=== PATIENT | male | born 1955 | race Caucasian/White ===

== ENCOUNTER 2022-09-07 09:14 | Inpatient (IN) | payer MEDICARE ==
[2022-09-07] MEDS ORDERED: NITROGLYCERIN-D5W PMX 50 MG in DEXTROSE/WATER 1 250ML.BAG IV ONE (09:18)
--- NOTE | 2022-09-07 09:31 | ED ---
General Adult HPI - General Stated complaint: difficulty breathing Time Seen by Provider: 09/07/22 09:15 - History of Present Illness Initial comments: Dictation was produced using [employer] dictation software. please excuse any grammatical, word or spelling errors. Chief Complaint: 67-year-old male presents emergency department for dyspnea History of Present Illness: 67-year-old male presents to the emergency department for dyspnea. Patient states that he felt unwell since yesterday. States that he has not returned to his usual state of health since mike Covid several months ago. Patient has any history of cardiac disease. Denies any history of heart failure. 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 Denies any history of we can heart heart failure. Denies any fever. No chest pain. Denies cough. Prehospital providers gave patient a glycerin and place patient on noninvasive ventilation. The ROS documented in this emergency department record has been reviewed and confirmed by me. Those systems with pertinent positive or negative responses have been documented in the HPI. All other systems are other negative and/or noncontributory. - Related Data Home Medications Medication Instructions Recorded Confirmed No Known Home Medications 09/07/22 09/07/22 Allergies Allergy/AdvReac Type Severity Reaction Status Date / Time No Known Allergies Allergy Verified 09/07/22 10:50 Review of Systems ROS Statement: Those systems with pertinent positive or pertinent negative responses have been documented in the HPI. ROS Other: All systems not noted in ROS Statement are negative. General Exam - General Exam Comments Initial Comments: PHYSICAL EXAM: General Impression: Alert and oriented x3, dyspneic HEENT: Normocephalic atraumatic, extra-ocular movements intact, pupils equal and reactive to light bilaterally, mucous membranes moist. Cardiovascular: Heart regular rate and rhythm Chest: Mildly dyspneic, diffuse crackles Abdomen: abdomen soft, non-tender, non-distended, no organomegaly Musculoskeletal: Pulses present and equal in all extremities, no peripheral edema Motor: no focal deficits noted Neurological: CN II-XII grossly intact, no focal motor or sensory deficits noted Skin: Intact with no visualized rashes Psych: Normal affect and mood Course Vital Signs 09/07/22 09/07/22 09/07/22 09:15 09:20 09:30 Pulse Rate 118 H Respiratory 32 H Rate Blood Pressure 163/114 O2 Sat by Pulse 85 L Oximetry Fraction of 100 60 Inspired Oxygen (FIO2) 09/07/22 09/07/22 09/07/22 09:42 09:58 10:24 Pulse Rate 112 H 105 H Respiratory 28 H 24 Rate Blood Pressure 147/97 138/95 O2 Sat by Pulse 99 98 Oximetry Fraction of 50 Inspired Oxygen (FIO2) - Reevaluation(s) Reevaluation #1: 09/07/22 10:43 Troponin level resulted showing level of 12.5. Patient is less dyspneic. He is given Lasix. Case is discussed with on-call cardiology, Dr. Alicea regarding patient's clinical presentation, EKG lab abnormalities and medical history. Stat echo ordered. Medical Decision Making - Medical Decision Making Was pt. sent in by a medical professional or institution (, PA, [facility], urgent care, hospital, or half-way...) When possible be specific @ -No Did you speak to anyone other than the patient for history (EMS, parent, family, police, friend...)? What history was obtained from this source @ -EMS provided history that patient had hypertensive findings and called EMS for shortness of breath Did you review nursing and triage notes (agree or disagree)? Why? @ -I reviewed and agree with nursing and triage notes Were old charts reviewed (outside hosp., previous admission, EMS record, old EK G, old radiological studies, urgent care reports/EKG's, half-way records)? Report findings @ -no old Charts available for review Differential Diagnosis (chest pain, altered mental status, abdominal pain women, abdominal pain men, vaginal bleeding, musculoskeletal, weakness, fever, dyspnea, syncope, headache, dizziness, GI bleed, back pain, seizure, CVA, palpatations, mental health)? @ -Differential Dyspnea: Coronary syndrome, arrhythmia, tamponade, asthma, COPD, pulmonary embolism, pneumonia, pneumothorax, pulmonary effusion, anaphylaxis, diabetic ketoacidosis, flailed chest, pulmonary contusion, diaphragmatic rupture, anemia, n euromuscular, this is not meant to be an all-inclusive list. EKG interpreted by me (3pts min.). @ -Repeat EKG performed at 10:42 AM showsdynamic changes ventricular rate 97,. 152, QRS 105, QTC 424 X-rays interpreted by me (1pt min.). @ -X-rays suspicious for fibrosis versus perihilar infiltrate CT interpreted by me (1pt min.). @ -None done U/S interpreted by me (1pt. min.). @ -None done What testing was considered but not performed or refused? (CT, X-rays, U/S, labs)? Why? @ -None What meds were considered but not given or refused? Why? @ -None Did you discuss the management of the patient with other professionals (professionals i.e. DrSoraida, PA, [facility], lab, RT, psych nurse, social service agency director, business services director, teacher, policy officer, comp field case manager)? Give summary @ -See above. Case also discussed with Dr. Darinel sultana admission Was smoking cessation discussed for >3mins.? @ -No Was critical care preformed (if so, how long)? @ -yes, 73 minutes Were there social determinants of health that impacted care today? How? (Homelessness, low income, unemployed, alcoholism, drug addiction, transportation, low edu. Level, literacy, decrease access to med. care, skilled nursing, rehab)? @ -No Was there de-escalation of care discussed even if they declined (Discuss DNR or withdrawal of care, Hospice)? DNR status @ -No What co-morbidities impacted this encounter? (DM, HTN, Smoking, COPD, CAD, Cancer, CVA, ARF, Chemo, Hep., AIDS, mental health diagnosis, sleep apnea, morbid obesity)? @ -CAD Was patient admitted / discharged? Hospital course, mention meds given and route, prescriptions, significant lab abnormalities, going to OR and other pe rtinent info. @ -67-year-old male presents to the emergency department for chief complaint of shortness of breath he arrived via EMS. Vital signs upon arrival shows blood pressure 163/114. Patient had already received sublingual nitroglycerin prior to arrival. He 5% on CPAP with heart rate of 118. When of care bedside ultrasound shows bryant B lines and upper lung field suggesting pulmonary edema. Laboratory evaluation obtained. CBC is unremarkable. Coag panel is negative. Metabolic panel shows mild acidosis with a bicarb of 17. Lactic acidosis of 5.6, glucose of 386. Troponin level 12.5. Patient had received aspirin by prehospital providers. Undiagnosed new problem with uncertain prognosis? @ -No Drug Therapy requiring intensive monitoring for toxicity (Heparin, Nitro, Insulin, Cardizem)? @ -No Were any procedures done? @ -No Diagnosis/symptom? Acute, or Chronic, or Acute on Chronic? Uncomplicated (without systemic symptoms) or Complicated (systemic symptoms)? @ -1. New-onset cardiomyopathy Side effects of treatment? @ -No Exacerbation, Progression, or Severe Exacerbation? @ -No Poses a threat to life or bodily function? How? (Chest pain, [place], [place], pneumonia, PE, COPD, DKA, ARF, appy, cholecystitis, CVA, Diverticulitis, Homicidal, Suicidal, threat to staff... and all critical care pts) @ -yes - Lab Data Result diagrams: 09/07/22 09:37 09/07/22 09:37 Lab Results 09/07/22 09/07/22 09/07/22 Range/Units 09:37 09:37 09:37 WBC 12.8 H (3.8-10.6) k/uL RBC 4.95 (4.30-5.90) m/uL Hgb 14.3 (13.0-17.5) gm/dL Hct 46.4 (39.0-53.0) % MCV 93.7 (80.0-100.0) fL MCH 28.8 (25.0-35.0) pg MCHC 30.7 L (31.0-37.0) g/dL RDW 14.4 (11.5-15.5) % Plt Count 276 (150-450) k/uL MPV 9.0 Neutrophils % 76 % Lymphocytes % 18 % Monocytes % 5 % Eosinophils % 1 % Basophils % 0 % Neutrophils # 9.7 H (1.3-7.7) k/uL Lymphocytes # 2.3 (1.0-4.8) k/uL Monocytes # 0.6 (0-1.0) k/uL Eosinophils # 0.1 (0-0.7) k/uL Basophils # 0.0 (0-0.2) k/uL Hypochromasia Moderate PT 10.1 (9.0-12.0) sec INR 0.9 (<1.2) APTT 20.9 L (22.0-30.0) sec Sodium 135 L (137-145) mmol/L Potassium 5.1 (3.5-5.1) mmol/L Chloride 105 (98-107) mmol/L Carbon Dioxide 17 L (22-30) mmol/L Anion Gap 13 mmol/L BUN 15 (9-20) mg/dL Creatinine 1.03 (0.66-1.25) mg/dL Est GFR (CKD-EPI)AfAm 86 (>60 ml/min/1.73 sqM) Est GFR (CKD-EPI)NonAf 74 (>60 ml/min/1.73 sqM) Glucose 386 H (74-99) mg/dL Plasma Lactic Acid Pieter (0.7-2.0) mmol/L Calcium 8.6 (8.4-10.2) mg/dL Magnesium 1.6 (1.6-2.3) mg/dL Total Bilirubin 1.6 H (0.2-1.3) mg/dL AST 124 H (17-59) U/L ALT 55 H (4-49) U/L Alkaline Phosphatase 63 (38-126) U/L Troponin I (0.000-0.034) ng/mL Total Protein 7.0 (6.3-8.2) g/dL Albumin 3.8 (3.5-5.0) g/dL 09/07/22 09/07/22 Range/Units 09:37 09:37 WBC (3.8-10.6) k/uL RBC (4.30-5.90) m/uL Hgb (13.0-17.5) gm/dL Hct (39.0-53.0) % MCV (80.0-100.0) fL MCH (25.0-35.0) pg MCHC (31.0-37.0) g/dL RDW (11.5-15.5) % Plt Count (150-450) k/uL MPV Neutrophils % % Lymphocytes % % Monocytes % % Eosinophils % % Basophils % % Neutrophils # (1.3-7.7) k/uL Lymphocytes # (1.0-4.8) k/uL Monocytes # (0-1.0) k/uL Eosinophils # (0-0.7) k/uL Basophils # (0-0.2) k/uL Hypochromasia PT (9.0-12.0) sec INR (<1.2) APTT (22.0-30.0) sec Sodium (137-145) mmol/L Potassium (3.5-5.1) mmol/L Chloride (98-107) mmol/L Carbon Dioxide (22-30) mmol/L Anion Gap mmol/L BUN (9-20) mg/dL Creatinine (0.66-1.25) mg/dL Est GFR (CKD-EPI)AfAm (>60 ml/min/1.73 sqM) Est GFR (CKD-EPI)NonAf (>60 ml/min/1.73 sqM) Glucose (74-99) mg/dL Plasma Lactic Acid Pieter 5.6 H* (0.7-2.0) mmol/L Calcium (8.4-10.2) mg/dL Magnesium (1.6-2.3) mg/dL Total Bilirubin (0.2-1.3) mg/dL AST (17-59) U/L ALT (4-49) U/L Alkaline Phosphatase (38-126) U/L Troponin I 12.500 H* (0.000-0.034) ng/mL Total Protein (6.3-8.2) g/dL Albumin (3.5-5.0) g/dL Disposition Clinical Impression: Cardiomyopathy Disposition: ADMITTED IP TO THIS [facility] Condition: Critical Referrals: None,Stated [REFERRING] - 1-2 days Decision Time: 11:22
[2022-09-07 09:48] LABS: Basophils % (A) 0 %; Eosinophils # (A) 0.1 k/uL (0-0.7); Eosinophils % (A) 1 %; HCT 46.4 % (39.0-53.0); HGB 14.3 gm/dL (13.0-17.5); Hypochromasia Moderate; Lymphocytes # (A) 2.3 k/uL (1.0-4.8); Lymphocytes % (A) 18 %; MCH 28.8 pg (25.0-35.0); MCHC 30.7 g/dL (31.0-37.0); MCV 93.7 fL (80.0-100.0); Monocytes # (A) 0.6 k/uL (0-1.0); Monocytes % (A) 5 %; Neutrophils # (A) 9.7 k/uL (1.3-7.7); Neutrophils % (A) 76 %; Platelet Count 276 k/uL (150-450); RBC 4.95 m/uL (4.30-5.90); RDW 14.4 % (11.5-15.5); WBC 12.8 k/uL (3.8-10.6)
--- NOTE | 2022-09-07 09:50 | XR ---
EXAMINATION TYPE: XR chest 1V portable DATE OF EXAM: 09/07/2022 COMPARISON: NONE HISTORY: Shortness of breath TECHNIQUE: Single frontal view of the chest is obtained. FINDINGS: Bilateral perihilar interstitial findings. Coarsened interstitium. No pleural effusion or pneumothorax. Limited inspiration with elevated right hemidiaphragm. Heart size normal. Hypertrophic changes in the spine. IMPRESSION: 1. Findings suspicious for pulmonary fibrosis with superimposed left perihilar infiltrate and interst itial pneumonitis.
[2022-09-07 10:02] LABS: AST 124 U/L (17-59); African American GFR (CKD) 86 (>60 ml/min/1.73 sqM); Albumin 3.8 g/dL (3.5-5.0); Alkaline Phosphatase 63 U/L (38-126); Anion Gap 13 mmol/L; Blood Urea Nitrogen 15 mg/dL (9-20); Calcium 8.6 mg/dL (8.4-10.2); Carbon Dioxide 17 mmol/L (22-30); Chloride 105 mmol/L (98-107); Glucose 386 mg/dL (74-99); Magnesium 1.6 mg/dL (1.6-2.3); Non-African American GFR(CKD) 74 (>60 ml/min/1.73 sqM); Potassium 5.1 mmol/L (3.5-5.1); Sodium 135 mmol/L (137-145); Total Bilirubin 1.6 mg/dL (0.2-1.3)
[2022-09-07 10:03] LABS: INR 0.9 (<1.2); Prothrombin Time 10.1 sec (9.0-12.0)
[2022-09-07] MEDS ORDERED: FUROSEMIDE 10 MG/ML 4 ML VIAL IV STA ×3 (10:16→17:33)
[2022-09-07 10:33] LABS: ALT 55 U/L (4-49)
[2022-09-07 10:38] LABS: Partial Thromboplastin Time 20.9 sec (22.0-30.0)
[2022-09-07] MEDS ORDERED: ASPIRIN 81 MG PO STA (10:42)
[2022-09-07] MEDS ORDERED: HEPARIN SODIUM 1,000 UN/ML (10ML VL) IV ONE (11:05)
[2022-09-07] MEDS ORDERED: NALOXONE 0.4 MG/ML 1 ML VIAL IV PRN (11:14)
[2022-09-07] MEDS: HEPARIN SOD,PORK IN 0.45% NACL 25,000 UNIT in 0.45% NACL 1 250ML.BAG IV SCH (11:25)
--- NOTE | 2022-09-07 11:27 | P.CRDCN ---
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 Patient has a past medical history of coronary artery disease with stenting of the left main 21 years ago in the setting of an CO performed at [facility], history of diabetes mellitus type 2 and was previously on metformin and glipizide which he states he stopped taking because these medications were making him feel sick. Patient presented to the hospital due to shortness of breath with cough and sputum production on and off since he had Covid last year. He also states he's had episodes of sweating with this. He denies having any chest pain. Symptoms started yesterday and became significantly worse quickly. He denies having been told history of heart failure. He has been borderline hypertensive in the past. He follows with a PCP at [facility] normally lives in the [facility] but has a cottage in [place]. Patient is currently on BiPAP, heart rate 100, blood pressure 138/95. Initial blood pressure 163/114 Patient is seen today in the emergency center waiting for a bed on the cardiac stepdown unit. Patient is status post 1 dose of IV Lasix, aspirin and started on nitroglycerin drip. EKG Chest x-ray: Suspicious for pulmonary fibrosis with superimposed left perihilar infiltrate and interstitial pneumonitis WBC 12.8, hemoglobin 14.3, platelet count 276. INR 0.9. Sodium 135, potassium 5.1, chloride 105, CO2 17, glucose 386. Lactic acid 5.6. Magnesium 1.6. Total bilirubin 1.6, AST 124, ALT 55, alkaline phosphatase 63. Troponin 12.5. Home cardiac medications: none Review Of Systems: At the time of my evaluation: Constitutional: No fever, no chills. Reports weakness, reports fatigue. Reported sweats EENT: No headache. No dizziness. Lungs: Reports shortness of breath, reports cough, reports sputum production. No wheezing. Cardiovascular: No chest pain, no lower extremity edema. No palpitations. No p aroxysmal nocturnal dyspnea. No orthopnea. No lightheadedness or dizziness. No syncopal episodes. Abdominal: No abdominal pain. No nausea, vomiting. No diarrhea. No constipation. No bloody or tarry stools. Genitourinary: No dysuria.. No urinary retention. Musculoskeletal: No myalgias. No muscle weakness, no frequent falls. No back pain. No neck pain. Integumentary: No wounds. No rash. No unusual bruising. Neurologic: No aphasia. No facial droop. No change in mentation. No head injury. No headache. Physical examination: Gen: This is a 67-year-old male. He is resting on ER stretcher on BiPAP, moderate dyspnea VS: reviewed HEENT: Head is atraumatic, normocephalic. Pupils equal, round. Sclerae is anicteric. NECK: Supple. No JVD. . LUNGS: Scattered rhonchi. No intercostal retractions. HEART: Regular rate and rhythm. No murmur. ABDOMEN: Soft No tenderness. EXTREMITIES: No pedal edema. No calf tenderness. NEUROLOGICAL: Patient is awake, alert and oriented x3. Assessment: Elevated troponin, non-ST elevated myocardial infarction Hypertensive emergency Acute hypoxic and hypercapnic respiratory failure Possible left perihilar infiltrate pneumonitis Possible acute systolic heart failure Post Covid lung changes Diabetes mellitus type 2 Cardiomyopathy of unclear etiology, possible ischemic Plan: Obtain BNP, repeat troponins, A1c, lipid panel, TSH Obtain 2-D echocardiogram and Doppler study report Continue heparin drip Continue nitroglycerin drip IV Lasix 40 mg every 12 hours, monitor I&O, daily weights electrolytes and renal function Start patient on Coreg 3.125 mg twice daily, valsartan 160 mg daily, atorvastatin 40 mg daily. Further recommendations to follow based upon clinical course Thank you kindly for this consultation. Nurse practitioner note has been reviewed, I agree with documented findings and plan of care. Patient was seen and examined. Medications and Allergies Home Medications Medication Instructions Recorded Confirmed Type No Known Home Medications 09/07/22 09/07/22 History Allergies Allergy/AdvReac Type Severity Reaction Status Date / Time No Known Allergies Allergy Verified 09/07/22 10:50 Physical Exam Vitals: Vital Signs Pulse Resp BP Pulse Ox FiO2 09/07/22 10:24 50 09/07/22 09:58 105 H 24 138/95 98 09/07/22 09:42 112 H 28 H 147/97 99 09/07/22 09:30 60 09/07/22 09:20 100 09/07/22 09:15 118 H 32 H 163/114 85 L Intake and Output 09/06/22 09/07/22 09/07/22 22:59 06:59 14:59 Intake Total 1.40 Balance 1.40 Intake: Intake, IV Titration 1.40 Amount Nitroglycerin-D5w Pmx 50 1.40 mg In Dextrose/Water 1 250ml.bag @ 5 MCG/MIN 1.5 mls/hr IV .Q24H ONE Rx#: [id number] Other: Weight 81.647 kg Results 09/11/22 04:50 09/11/22 04:50 Cardiac Enzymes 09/07/22 09/07/22 Range/Units 09:37 09:37 AST 124 H (17-59) U/L Troponin I 12.500 H* (0.000-0.034) ng/mL Coagulation 09/07/22 Range/Units 09:37 PT 10.1 (9.0-12.0) sec APTT 20.9 L (22.0-30.0) sec CBC 09/07/22 Range/Units 09:37 WBC 12.8 H (3.8-10.6) k/uL RBC 4.95 (4.30-5.90) m/uL Hgb 14.3 (13.0-17.5) gm/dL Hct 46.4 (39.0-53.0) % Plt Count 276 (150-450) k/uL Comprehensive Metabolic Panel 09/07/22 Range/Units 09:37 Sodium 135 L (137-145) mmol/L Potassium 5.1 (3.5-5.1) mmol/L Chloride 105 (98-107) mmol/L Carbon Dioxide 17 L (22-30) mmol/L BUN 15 (9-20) mg/dL Creatinine 1.03 (0.66-1.25) mg/dL Glucose 386 H (74-99) mg/dL Calcium 8.6 (8.4-10.2) mg/dL AST 124 H (17-59) U/L ALT 55 H (4-49) U/L Alkaline Phosphatase 63 (38-126) U/L Total Protein 7.0 (6.3-8.2) g/dL Albumin 3.8 (3.5-5.0) g/dL Current Medications Generic Name Dose Route Start Last Admin Trade Name Freq PRN Reason Stop Dose Admin Heparin Sodium (Porcine) 0 unit 09/07/22 11:05 Heparin Sodium 1,000 Un/Ml (10ml Vl) IV PER PROTOCOL PRN Low PTT Protocol Nitroglycerin/Dextrose 50 mg/ 250 mls @ 1.5 mls/hr 09/07/22 09:18 09/07/22 09:58 IV Solution IV 09/08/22 09:17 0 mcg/min .Q24H ONE 0 mls/hr Titration Protocol 5 MCG/MIN Heparin Sodium/Sodium Chloride 250 mls @ 9.798 mls/hr 09/07/22 11:15 25,000 unit/ Sodium Chloride IV .Q24H SANDRA Protocol 12 UNITS/KG/HR Intake and Output 09/06/22 09/07/22 09/07/22 22:59 06:59 14:59 Intake Total 1.40 Balance 1.40 Intake: Intake, IV Titration 1.40 Amount Nitroglycerin-D5w Pmx 50 1.40 mg In Dextrose/Water 1 250ml.bag @ 5 MCG/MIN 1.5 mls/hr IV .Q24H ONE Rx#: [id number] Other: Weight 81.647 kg Patient Weight 09/08/22 06:59 Weight 81.647 kg 09/07/22 09:37 09/07/22 09:37
[2022-09-07] MEDS: SODIUM CHLORIDE 0.9% 1,000 ML IV SCH (11:31)
[2022-09-07] MEDS ORDERED: VALSARTAN 160 MG TAB PO SCH (12:00)
[2022-09-07] MEDS: carvediloL 3.125 MG TAB PO SCH ×2 (12:15→17:46)
--- NOTE | 2022-09-07 12:24 | CA ---
Transthoracic Echo Report Name: Dylan Roberts Age: 67 Gender: M : 1955 Exam Date: 09/07/2022 10:57 Exam Location: [facility] Ht (in): 72 Wt (lb): 180 Ordering Physician: Jasiel Velez DO Attending/Referring Phys: Rosie Weathers;[id number] Emt I/85 Arabella Granados [facility] Procedure CPT: Indications: Heart failure Cardiac Hx: Technical Quality: Fair Contrast 1: Lumason Total Dose (mL): 5 Contrast 2: Total Dose (mL): MEASUREMENTS (Male / Female) Normal Values 2D ECHO LV Diastolic Diameter PLAX 4.7 cm 4.2 - 5.9 / 3.9 - 5.3 cm LV Systolic Diameter PLAX 4.2 cm IVS Diastolic Thickness 1.1 cm 0.6 - 1.0 / 0.6 - 0.9 cm LVPW Diastolic Thickness 0.9 cm 0.6 - 1.0 / 0.6 - 0.9 cm LV Relative Wall Thickness 0.4 LV Diastolic Volume MOD BP 96.0 cm??? 67 - 155 / 56 - 104 cm??? LV Systolic Volume MOD BP 74.8 cm??? 22 - 58 / 19 - 49 cm??? LV Ejection Fraction MOD BP 22.0 % >= 55 % LV Cardiac Index MOD BP 993.6 cm???/min???m??? LV Diastolic Volume MOD 4C 95.9 cm??? LV Systolic Volume MOD 4C 69.6 cm??? LV Ejection Fraction MOD 4C 27.4 % LV Cardiac Index MOD 4C 1234.2 cm???/min???m??? LV Diastolic Length 4C 8.0 cm LV Systolic Length 4C 7.2 cm LV Diastolic Volume MOD 2C 94.2 cm??? LV Systolic Volume MOD 2C 72.1 cm??? LV Ejection Fraction MOD 2C 23.5 % LV Cardiac Index MOD 2C 1039.9 cm???/min???m??? LV Diastolic Length 2C 7.8 cm LV Systolic Length 2C 8.1 cm DOPPLER Mitral E Point Velocity 58.9 cm/s Mitral A Point Velocity 51.3 cm/s Mitral E to A Ratio 1.1 MV Deceleration Time 124.8 ms LV E' Lateral Velocity 6.3 cm/s Mitral E to LV E' Lateral Ratio 9.3 LV E' Septal Velocity 6.0 cm/s Mitral E to LV E' Septal Ratio 9.8 TR Peak Velocity 300.3 cm/s TR Peak Gradient 36.1 mmHg Right Atrial Pressure 15.0 mmHg Pulmonary Artery Systolic Pressu 51.1 mmHg Right Ventricular Systolic Press 51.1 mmHg FINDINGS Left Ventricle Mildly increased left ventricular wall thickness. Left ventricular ejection fraction is estimated at 20-25%. Moderately increased left ventricular systolic volume. Severely reduced global left ventricular systolic function. Severely decreased left ventricular ejection fraction. Left ventricular ejection fraction is estimated at 20-25%. Right Ventricle Normal right ventricular size. Moderate pulmonary hypertension. Right Atrium Left Atrium Mitral Valve Structurally normal mitral valve. Mild mitral regurgitation. Aortic Valve Tricuspid Valve Structurally normal tricuspid valve. Mild tricuspid regurgitation. Pulmonic Valve Pericardium No pericardial effusion. Aorta CONCLUSIONS Left ventricular ejection fraction 2024% with global hypokinesis RVSP 51 Mild mitral regurgitation Mild tricuspid regurgitation Echolucency at apex on contrast images, cannot exclude apical thrombus vs swirling contrast. Consider repeat imaging if clinically indicated. Previewed by: Dr. Pierre Landa DO (Electronically Signed) Final Date: 07 September 2022 12:23
--- NOTE | 2022-09-07 13:31 | P.CNPUL ---
History of Present Illness Consult date: 09/07/22 Reason for consult: dyspnea History of present illness: A 67-year-old male patient, came into the emergency department because of worsening shortness of breath. The patient lives in [facility] and he has a primary care physician out of [facility]. The patient was visiting here in [place] and became progressively more short of breath. No significant cough or sputum production. No hemoptysis. No pleurisy. No angina. No palpitations. He is known to have CAD and he has undergone stenting many years back and she is not seeing a management accounts manager on a regular basis. He is known to have hypertension. He is an ex-smoker. In the emergency, the patient was found to be hypertensive and he was diagnosed having an acute hypertensive emergency with secondary pulmonary edema. EKG showed some nonspecific ST segment changes in the lateral leads and anteroseptal Q waves. The cardiac rhythm was sinus. The chest x-ray was consistent with pulmonary edema. The patient's initial troponin came back at 12.5. His lactic acid level was at 5.6. ProBNP level was 2930. There was done was 12.8 with hemoglobin 14.3 and a plat elet count of 276. The patient was started on IV heparin. The patient was started on nitroglycerin drip. Blood pressures under better control. Subsequently, the patient was also placed on a BiPAP at a pressure of 12/5 cm of water with an FiO2 of 50%. The current pulse ox is 97%. Most recent BP is 140/97 and a nitroglycerin is being titrated accordingly. He was given also Lasix. He is producing adequate amount of urine output. The chest x-ray showed coarse interstitial changes bilaterally. Most likely interstitial edema/CHF. Review of Systems Constitutional: Reports fatigue, Reports weakness Eyes: denies as per HPI, denies blurred vision, denies bulging eye, denies decreased vision, denies diplopia, denies discharge, denies dry eye, denies irritation, denies itching, denies pain, denies photophobia, denies loss of peripheral vision, denies loss of vision, denies tunnel vision/blind spots Ears: deny: decreased hearing, ear discharge, earache, tinnitus Ears, nose, mouth and throat: Reports as per HPI Breasts: absent: as per HPI, gynecomastia Cardiovascular: Reports decreased exercise tolerance, Reports dyspnea on exertion Respiratory: Reports cough Gastrointestinal: Reports as per HPI Genitourinary: Reports as per HPI Musculoskeletal: Reports as per HPI Musculoskeletal: absent: ankle pain, ankle stiffness, ankle swelling Integumentary: Reports as per HPI Neurological: Reports as per HPI Psychiatric: Reports as per HPI Endocrine: Reports as per HPI Hematologic/Lymphatic: Reports as per HPI Past Medical History Past Medical History: Coronary Artery Disease (CAD), Hypertension Additional Past Medical History / Comment(s): Previous COVID x2, last infection was in 2021 Past Surgical History: Heart Catheterization With Stent Additional Past Surgical History / Comment(s): back surgery for back pain Smoking Status: Former smoker Medications and Allergies Home Medications Medication Instructions Recorded Confirmed Type No Known Home Medications 09/07/22 09/07/22 History Allergies Allergy/AdvReac Type Severity Reaction Status Date / Time No Known Allergies Allergy Verified 09/07/22 10:50 Physical Exam Vitals: Vital Signs Pulse Resp BP Pulse Ox FiO2 09/07/22 11:22 98 28 H 159/109 97 09/07/22 10:24 50 09/07/22 09:58 105 H 24 138/95 98 09/07/22 09:42 112 H 28 H 147/97 99 09/07/22 09:30 60 09/07/22 09:20 100 09/07/22 09:15 118 H 32 H 163/114 85 L Intake and Output 09/06/22 09/07/22 09/07/22 22:59 06:59 14:59 Intake Total 1.40 Balance 1.40 Intake: Intake, IV Titration 1.40 Amount Nitroglycerin-D5w Pmx 50 1.40 mg In Dextrose/Water 1 250ml.bag @ 5 MCG/MIN 1.5 mls/hr IV .Q24H ONE Rx#: [id number] Other: Weight 81.647 kg Patient is calm and comfortable on BiPAP at a pressure of 12/5 with an FiO2 of 50%. Head exam was generally normal. There was no scleral icterus or corneal arcus. Mucous membranes were moist. Neck was supple and without jugular venous distension, thyromegaly, or carotid bruits. Carotids were easily palpable bilaterally. There was no adenopathy. Lungs sounds are diminished bilaterally especially in the lung bases. The patient is also some limited crackles bilaterally. Heart sounds are distant, positive S1 and S2, slightly tachycardic. No significant murmurs appreciated. Abdominal exam revealed normal bowel sounds. The abdomen was soft, non-tender, and without masses, organomegaly, or appreciable enlargement of the abdominal aorta. Examination of the extremities revealed easily palpable radial, femoral and pedal pulses. There was no cyanosis, clubbing or edema. Examination of the skin revealed no evidence of significant rashes, suspicious appearing nevi or other concerning lesions. Neurologically, the patient is awake and alert and the patient does not have any focal neurological deficit. Cranial nerves are essentially intact. Results - Laboratory Findings CBC and BMP: 09/07/22 09:37 09/07/22 09:37 PT/INR, D-dimer PT 10.1 sec (9.0-12.0) 09/07/22 09:37 INR 0.9 (<1.2) 09/07/22 09:37 Abnormal lab findings: Abnormal Labs 09/07/22 09/07/22 09/07/22 09:37 09:37 09:37 WBC 12.8 H MCHC 30.7 L Neutrophils # 9.7 H APTT 20.9 L Sodium 135 L Carbon Dioxide 17 L Glucose 386 H Plasma Lactic Acid Pieter Total Bilirubin 1.6 H AST 124 H ALT 55 H Troponin I 09/07/22 09/07/22 09:37 09:37 WBC MCHC Neutrophils # APTT Sodium Carbon Dioxide Glucose Plasma Lactic Acid Pieter 5.6 H* Total Bilirubin AST ALT Troponin I 12.500 H* - Diagnostic Findings Chest x-ray: image reviewed Assessment and Plan Plan: Acute hypertensive emergency, currently on a nitroglycerin drip for blood pressure control Acute decompensated heart failure with pulmonary edema/interstitial pulmonary edema. Rule out underlying systolic heart failure. Decompensated effective could be his poor blood pressure control. ProBNP level is quite elevated Acute non-ST elevation myocardial infarction Acute hypoxic respiratory failure and the patient is current on a BiPAP at a pressure of 12/5 with an FiO2 of 50% Acute shortness of breath secondary to above Known history of coronary artery disease with previous coronary stenting many years back Acute lactic acidosis Plan Keep the patient on a BiPAP for now the same settings Start the patient on Lasix 40 mg IV every 12 hours Continue nitroglycerin drip for blood pressure control Continue IV heparin Obtain an echocardiogram Cardiology consultation We'll make further adjustment in his blood pressure medication based on the echo findings We'll admit the patient to the intensive care unit and FOLLOW.
--- NOTE | 2022-09-07 15:48 | XR ---
EXAMINATION TYPE: XR chest 1V DATE OF EXAM: 09/07/2022 HISTORY: Shortness of breath. COMPARISON: 09/07/2022 TECHNIQUE: Single view of the chest is submitted. FINDINGS: Demonstrated are scattered senescent parenchymal change. There is progression of perihilar and upper lobe pneumonia. Acute pulmonary edema is also within the differential. There may be an underlying component of pulmonary fibrosis. The heart is stable. Hilar and mediastinal structures are within normal limits. Degenerative changes are seen of the dorsal spine. IMPRESSION: 1. There is progression of perihilar and upper lobe pneumonia. Acute pulmonary edema is also within the differential. There may be an underlying component of pulmonary fibrosis.
[2022-09-07] MEDS ORDERED: SODIUM BICARB 8.4% 50 ML SYR (1 MEQ/ML) IV STA (15:49)
--- NOTE | 2022-09-07 16:11 | ED ---
Medical Decision Making - Lab Data Result diagrams: 09/07/22 09:37 09/07/22 09:37 Lab Results 09/07/22 09/07/22 09/07/22 Range/Units 09:37 09:37 09:37 WBC 12.8 H (3.8-10.6) k/uL RBC 4.95 (4.30-5.90) m/uL Hgb 14.3 (13.0-17.5) gm/dL Hct 46.4 (39.0-53.0) % MCV 93.7 (80.0-100.0) fL MCH 28.8 (25.0-35.0) pg MCHC 30.7 L (31.0-37.0) g/dL RDW 14.4 (11.5-15.5) % Plt Count 276 (150-450) k/uL MPV 9.0 Neutrophils % 76 % Lymphocytes % 18 % Monocytes % 5 % Eosinophils % 1 % Basophils % 0 % Neutrophils # 9.7 H (1.3-7.7) k/uL Lymphocytes # 2.3 (1.0-4.8) k/uL Monocytes # 0.6 (0-1.0) k/uL Eosinophils # 0.1 (0-0.7) k/uL Basophils # 0.0 (0-0.2) k/uL Hypochromasia Moderate PT 10.1 (9.0-12.0) sec INR 0.9 (<1.2) APTT 20.9 L (22.0-30.0) sec Sodium 135 L (137-145) mmol/L Potassium 5.1 (3.5-5.1) mmol/L Chloride 105 (98-107) mmol/L Carbon Dioxide 17 L (22-30) mmol/L Anion Gap 13 mmol/L BUN 15 (9-20) mg/dL Creatinine 1.03 (0.66-1.25) mg/dL Est GFR (CKD-EPI)AfAm 86 (>60 ml/min/1.73 sqM) Est GFR (CKD-EPI)NonAf 74 (>60 ml/min/1.73 sqM) Glucose 386 H (74-99) mg/dL Lactic Ac Sepsis Rflx Plasma Lactic Acid Pieter (0.7-2.0) mmol/L Calcium 8.6 (8.4-10.2) mg/dL Magnesium 1.6 (1.6-2.3) mg/dL Total Bilirubin 1.6 H (0.2-1.3) mg/dL AST 124 H (17-59) U/L ALT 55 H (4-49) U/L Alkaline Phosphatase 63 (38-126) U/L Troponin I (0.000-0.034) ng/mL NT-Pro-B Natriuret Pep pg/mL Total Protein 7.0 (6.3-8.2) g/dL Albumin 3.8 (3.5-5.0) g/dL TSH (0.465-4.680) mIU/L 09/07/22 09/07/22 09/07/22 Range/Units 09:37 09:37 09:37 WBC (3.8-10.6) k/uL RBC (4.30-5.90) m/uL Hgb (13.0-17.5) gm/dL Hct (39.0-53.0) % MCV (80.0-100.0) fL MCH (25.0-35.0) pg MCHC (31.0-37.0) g/dL RDW (11.5-15.5) % Plt Count (150-450) k/uL MPV Neutrophils % % Lymphocytes % % Monocytes % % Eosinophils % % Basophils % % Neutrophils # (1.3-7.7) k/uL Lymphocytes # (1.0-4.8) k/uL Monocytes # (0-1.0) k/uL Eosinophils # (0-0.7) k/uL Basophils # (0-0.2) k/uL Hypochromasia PT (9.0-12.0) sec INR (<1.2) APTT (22.0-30.0) sec Sodium (137-145) mmol/L Potassium (3.5-5.1) mmol/L Chloride (98-107) mmol/L Carbon Dioxide (22-30) mmol/L Anion Gap mmol/L BUN (9-20) mg/dL Creatinine (0.66-1.25) mg/dL Est GFR (CKD-EPI)AfAm (>60 ml/min/1.73 sqM) Est GFR (CKD-EPI)NonAf (>60 ml/min/1.73 sqM) Glucose (74-99) mg/dL Lactic Ac Sepsis Rflx Plasma Lactic Acid Pieter 5.6 H* (0.7-2.0) mmol/L Calcium (8.4-10.2) mg/dL Magnesium (1.6-2.3) mg/dL Total Bilirubin (0.2-1.3) mg/dL AST (17-59) U/L ALT (4-49) U/L Alkaline Phosphatase (38-126) U/L Troponin I 12.500 H* (0.000-0.034) ng/mL NT-Pro-B Natriuret Pep 2930 pg/mL Total Protein (6.3-8.2) g/dL Albumin (3.5-5.0) g/dL TSH (0.465-4.680) mIU/L 09/07/22 09/07/22 Range/Units 09:37 10:32 WBC (3.8-10.6) k/uL RBC (4.30-5.90) m/uL Hgb (13.0-17.5) gm/dL Hct (39.0-53.0) % MCV (80.0-100.0) fL MCH (25.0-35.0) pg MCHC (31.0-37.0) g/dL RDW (11.5-15.5) % Plt Count (150-450) k/uL MPV Neutrophils % % Lymphocytes % % Monocytes % % Eosinophils % % Basophils % % Neutrophils # (1.3-7.7) k/uL Lymphocytes # (1.0-4.8) k/uL Monocytes # (0-1.0) k/uL Eosinophils # (0-0.7) k/uL Basophils # (0-0.2) k/uL Hypochromasia PT (9.0-12.0) sec INR (<1.2) APTT (22.0-30.0) sec Sodium (137-145) mmol/L Potassium (3.5-5.1) mmol/L Chloride (98-107) mmol/L Carbon Dioxide (22-30) mmol/L Anion Gap mmol/L BUN (9-20) mg/dL Creatinine (0.66-1.25) mg/dL Est GFR (CKD-EPI)AfAm (>60 ml/min/1.73 sqM) Est GFR (CKD-EPI)NonAf (>60 ml/min/1.73 sqM) Glucose (74-99) mg/dL Lactic Ac Sepsis Rflx Y Plasma Lactic Acid Pieter (0.7-2.0) mmol/L Calcium (8.4-10.2) mg/dL Magnesium (1.6-2.3) mg/dL Total Bilirubin (0.2-1.3) mg/dL AST (17-59) U/L ALT (4-49) U/L Alkaline Phosphatase (38-126) U/L Troponin I (0.000-0.034) ng/mL NT-Pro-B Natriuret Pep pg/mL Total Protein (6.3-8.2) g/dL Albumin (3.5-5.0) g/dL TSH 0.893 (0.465-4.680) mIU/L Disposition Clinical Impression: Cardiomyopathy Disposition: ADMITTED IP TO THIS HOSP Condition: Critical Procedures - Intubation Sedative: Propofol Mg Given: 50 Paralytic: Rocuronium Mg Given: 70 Laryngoscope: fiber optic video scope Size: 3 Assist Device Used: fiber optic device ET Tube Size: 8 Tube Secured Depth (cm): 24 Tube Secured Location: lips Tube Placement Confirmation: visualized tube passing through cords, equal breath sounds bilaterally Patient Tolerated Procedure: well Intubation Complications: none
[2022-09-07] MEDS ORDERED: ROCURONIUM 10 MG/ML (5 ML VIAL) IV ONE (16:14)
--- NOTE | 2022-09-07 16:31 | P.HPIM ---
History of Present Illness H&P Date: 09/07/22 Chief Complaint: dyspnea Patient is a 67-year-old male with a history of coronary artery disease status post stenting many years ago, diabetes mellitus type 2 currently not on any medications, and osteoarthritis who presented to the ER via EMS for complaints of increasing shortness of breath. On arrival to the ER he underwent an extensive evaluation. His pulse was 118, respirations 32, blood pressure 163/114, and O2 sat was 85% on CPAP. Laboratory analysis was remarkable for white blood cell count of 12.8, sodium 135, carbon dioxide 13, glucose 186, lactic acid 5.6, total bilirubin 1.6, AST 124, ALT 55, troponin 12.5, and BNP 2930. Chest x-ray showed findings suspicious for pulmonary fibrosis with superimposed left perihilar infiltrate and interstitial pneumonitis Patient seen and examined at bedside. He has a Bipap in place. He states that he had sudden onset shortness of breath yesterday which has gotten progressively worse. He deneis any chest pain, nuasea, diaphoresis. He reports a cough productive of yellow sputum. He denies any recent fever. He had an [place] about 20 years ago, but does not follow with a tobacco grader. He last saw he PCP around the first of the year and reports that his A1C was 7.2 He reports that he last urinated about 1 and 1/2 hours ago. Vital signs reviewed General: nontoxic, no distress, appears at stated age Derm: warm, dry Eyes: EOMI, no lid lag, anicteric sclera, pupils equal round reactive to light ENT: Nose and ears atraumatic, no thrush, no pharyngeal erythema Cardiovascular: S1S2 reg, no murmur, positive posterior tibial pulse bilateral, no edema, capillary refill less than 2 seconds Lungs: clear to auscultation bilateral, no rhonchi, no rales, no wheeze, no accessory muscle use Abdominal: soft, nontender to palpation, no guarding, no appreciable organomegaly, normal bowel sounds Ext: no gross muscle atrophy, muscle strength 5 out of 5 in all 4 extremities, no contractures Neuro: CN II-XII grossly intact, light touch intact all 4 extremities, finger to nose within normal limits, Psych: Alert, oriented, appropriate affect Assessment: Non-STEMI Acute hypoxic respiratory failure Hypertensive urgency Cardiogenic pulmonary edema Cardiomyopathy, suspect ischemic Hx [place] and CAD with PCI -Cardiology note reviewed and case discussed with Louann nurse practitioner. Urgent echocardiogram reveals an ejection fraction of 20-25% with severely reduced global left ventricular systolic dysfunction, and troponin is increasing. Per Louann there is no immediate plans for ischemic evaluation but will consider in the future, pending clinical course. Patient was started on Coreg 3.125 mg twice daily by cardiology in addition to valsartan 160 mg on atorvastatin 40 mg. -Pulmonary note reviewed: Continue with Lasix 40 mg every 12 hours and BiPAP settings. - Lasix 40 mg IVP additionally now. - strict I and O, daily weights - currently NPO - continue with nitro gtt and heparin gtt Lactic acidosis -Suspect secondary to increased work of breathing -Is improved on repeat. Would not continue with IV fluids. Diabetes mellitus type 2 with hyperglycemia - A1C 11 - Start sliding scale insulin - Follow blood sugars Imaging: Chest x-ray is reviewed by myself reveals increased pulmonary vascular markings bilaterally Data Review: As per HPI The patient is admitted with an anticipated greater than 2 midnight stay for evaluation of NSTEMI. Surrogate decision-maker: Significant otherSpencer CODE STATUS: Full, discussed at length DVT prophylaxis: Heparin gtt Anticipated discharge date: Pending Clinical Course Anticipated discharge place: Pending Clinical Course This dictation was prepared using yeppt voice recognition software. Though every attempt is made to correct errors during dictation some may still exist. Past Medical History Past Medical History: Coronary Artery Disease (CAD), Hypertension, Myocardial Infarction ([place]) Additional Past Medical History / Comment(s): Previous COVID x2, last infection was in 2021 Past Surgical History: Heart Catheterization With Stent Additional Past Surgical History / Comment(s): back surgery for back pain Smoking Status: Former smoker Medications and Allergies Home Medications Medication Instructions Recorded Confirmed Type No Known Home Medications 09/07/22 09/07/22 History Allergies Allergy/AdvReac Type Severity Reaction Status Date / Time No Known Allergies Allergy Verified 09/07/22 10:50 Physical Exam Osteopathic Statement: *. No significant issues noted on an osteopathic structural exam other than those noted in the History and Physical/Consult. Vitals: Vital Signs Temp Pulse Resp BP Pulse Ox FiO2 09/07/22 12:23 97.0 F L 97 26 H 140/97 97 09/07/22 11:22 98 28 H 159/109 97 09/07/22 10:24 50 06/22/23 09:58 105 H 24 138/95 98 09/07/22 09:42 112 H 28 H 147/97 99 09/07/22 09:30 60 09/07/22 09:20 100 09/07/22 09:15 118 H 32 H 163/114 85 L Intake and Output 09/06/22 09/07/22 09/07/22 22:59 06:59 14:59 Intake Total 1.40 Balance 1.40 Intake: Intake, IV Titration 1.40 Amount Nitroglycerin-D5w Pmx 50 1.40 mg In Dextrose/Water 1 250ml.bag @ 5 MCG/MIN 1.5 mls/hr IV .Q24H ONE Rx#: [id number] Other: Weight 81.647 kg Results CBC & Chem 7: 09/07/22 16:44 09/07/22 09:37 Labs: Abnormal Lab Results - Last 24 Hours (Table) 09/07/22 09/07/22 09/07/22 Range/Units 09:37 09:37 09:37 WBC 12.8 H (3.8-10.6) k/uL MCHC 30.7 L (31.0-37.0) g/dL Neutrophils # 9.7 H (1.3-7.7) k/uL APTT 20.9 L (22.0-30.0) sec Sodium 135 L (137-145) mmol/L Carbon Dioxide 17 L (22-30) mmol/L Glucose 386 H (74-99) mg/dL Plasma Lactic Acid Pieter (0.7-2.0) mmol/L Total Bilirubin 1.6 H (0.2-1.3) mg/dL AST 124 H (17-59) U/L ALT 55 H (4-49) U/L Troponin I (0.000-0.034) ng/mL 09/07/22 09/07/22 09/07/22 Range/Units 09:37 09:37 12:33 WBC (3.8-10.6) k/uL MCHC (31.0-37.0) g/dL Neutrophils # (1.3-7.7) k/uL APTT (22.0-30.0) sec Sodium (137-145) mmol/L Carbon Dioxide (22-30) mmol/L Glucose (74-99) mg/dL Plasma Lactic Acid Pieter 5.6 H* (0.7-2.0) mmol/L Total Bilirubin (0.2-1.3) mg/dL AST (17-59) U/L ALT (4-49) U/L Troponin I 12.500 H* 16.200 H* (0.000-0.034) ng/mL 09/07/22 Range/Units 12:45 WBC (3.8-10.6) k/uL MCHC (31.0-37.0) g/dL Neutrophils # (1.3-7.7) k/uL APTT (22.0-30.0) sec Sodium (137-145) mmol/L Carbon Dioxide (22-30) mmol/L Glucose (74-99) mg/dL Plasma Lactic Acid Pieter 2.2 H* (0.7-2.0) mmol/L Total Bilirubin (0.2-1.3) mg/dL AST (17-59) U/L ALT (4-49) U/L Troponin I (0.000-0.034) ng/mL
[2022-09-07] MEDS ORDERED: IPRATROPIUM-ALBUTEROL 3 ML NEB INHALATION PRN (16:33)
[2022-09-07] MEDS ORDERED: ACETAMINOPHEN TAB 325 MG TAB OG-TUBE PRN (16:33)
[2022-09-07] MEDS ORDERED: PROPOFOL 10 MG/ML 20 ML VIAL IV ONE (17:05)
[2022-09-07 17:26] LABS: Basophils % (A) 0 %; Eosinophils # (A) 0.1 k/uL (0-0.7); Eosinophils % (A) 1 %; HCT 46.9 % (39.0-53.0); HGB 15.1 gm/dL (13.0-17.5); Lymphocytes % (A) 9 %; MCH 29.3 pg (25.0-35.0); MCHC 32.1 g/dL (31.0-37.0); MCV 91.1 fL (80.0-100.0); Mean Platelet Volume 9.4; Monocytes # (A) 0.6 k/uL (0-1.0); Monocytes % (A) 5 %; Neutrophils # (A) 9.6 k/uL (1.3-7.7); Neutrophils % (A) 85 %; Platelet Count 231 k/uL (150-450); RBC 5.14 m/uL (4.30-5.90); RDW 14.6 % (11.5-15.5); WBC 11.4 k/uL (3.8-10.6)
[2022-09-07 17:41] LABS: Glucose,Whole Blood 338 mg/dL (70-110)
[2022-09-07 17:44] LABS: ABG Base Excess -2.4 mmol/L; ABG HCO3 24 mmol/L (21-25); ABG Oxygen Saturation 97.7 % (94-97); ABG PCO2 46 mmHg (35-45); ABG PH 7.32 (7.35-7.45); ABG PO2 104 mmHg (83-108); ABG TCO2 25 mmol/L (19-24); Allen Test Performed? Yes
[2022-09-07] MEDS ORDERED: DEXTROSE 50% SYRINGE 50 ML IVP PRN ×2 (17:48)
[2022-09-07 18:06] LABS: African American GFR (CKD) >90 (>60 ml/min/1.73 sqM); Anion Gap 15 mmol/L; Blood Urea Nitrogen 17 mg/dL (9-20); Calcium 8.7 mg/dL (8.4-10.2); Carbon Dioxide 21 mmol/L (22-30); Chloride 103 mmol/L (98-107); Glucose 360 mg/dL (74-99); Non-African American GFR(CKD) 85 (>60 ml/min/1.73 sqM); Sodium 139 mmol/L (137-145)
--- NOTE | 2022-09-07 18:11 | XR ---
EXAMINATION: XR chest 1V portable 09/07/2022 5:16 PM CLINICAL INDICATION: PHH; Tube placement TECHNIQUE: AP supine portable COMPARISON: AP upright portable 09/07/2022 at 3:43 PM FINDINGS: Patient has been intubated, and the ET tube tip is trachea, approximately 3 cm cephalad to the jonathon . NG tube is in place, with its ports expected position GE junction, and the NG tube may be better plac ed and advanced 7 cm distally. There is a severe bilateral airspace filling process involving upper, mid, and lower lung zones bilat erally throughout the lungs, increased in density and volume compared the prior study 45 minutes prev iously. IMPRESSION: 1. Post intubation CXR with severe bilateral airspace filling process. 2. NG tube comments as above * Limitation of the study: Supine radiography cannot exclude pneumoperitoneum. There is a deep sulcu s sign on the left, a nonspecific finding which can correlate with pneumothorax on supine radiography . Recommend follow-up radiograph in the upright position, lateral decubitus position, or shoot throug h lateral.
--- NOTE | 2022-09-07 18:41 | XR ---
EXAMINATION: XR chest 1V confirm line [facility] DATE AND TIME: 09/07/2022 5:23 PM CLINICAL INDICATION: PHH; Central Line Placement TECHNIQUE: Departmental protocol COMPARISON: 09/07/2022 4:18 PM - AP portable supine radiograph FINDINGS: ET tube tip is superimposed over the mid trachea. NG tube is in place, with its port over the expected position of the GE junction; if the NG tube is n ot been advanced since the prior radiograph then would suggest advancing the NG tube 7 cm distally si lhouette of the chest port and its tip in the stomach. New since the prior study. The placement of a left IJ central line catheter, which has its tip superi mposed over the distal SVC. There is a severe bilateral airspace filling process involving upper, mid, and lower lung zones bilat erally throughout the lungs, unchanged from the prior study. IMPRESSION: 1. Post right IJV central line placement. 2. NG tube comments as above. 3. Unchanged overall lung inflation, with redemonstrated severe bilateral airspace filling process. 4. Left deep sulcus sign: * Limitation of the study: This supine radiograph cannot exclude pneumoperitoneum. There is a deep s ulcus sign on the left, a nonspecific finding which can correlate with pneumothorax on supine radiogr aphy. Recommend follow-up radiograph in the upright position, lateral decubitus position, or shoot th rough lateral.
[2022-09-07] MEDS ORDERED: HYDROmorphone 0.5 MG/0.5 ML SYRINGE IVP PRN (18:57)
[2022-09-07] MEDS: NOREPINEPHRINE 4 MG in SODIUM CHLORIDE 0.9% 250 ML IV SCH (19:30)
[2022-09-07] MEDS ORDERED: Magnesium Replacement Protocol 1 EACH MISC MISCELLANE PRN (19:53)
[2022-09-07] MEDS: FUROSEMIDE 100 MG in SODIUM CHLORIDE 0.9% 90 ML IV SCH (20:13)
--- NOTE | 2022-09-07 20:13 | P.PN ---
Progress Note - Text Initially discussed with ER physician Discussed with nurse practitioner Discussed with internal medicine Patient evaluated and examined Impression Acute on chronic congestive heart failure with severe systolic dysfunction, Hypertensive upon admission Left ventricular ejection fraction severely reduced Pulmonary edema Abnormal and rising troponins consistent with non-Q-wave myocardial infarction Failed BiPAP therapy with IV nitroglycerin, IV Lasix and carvedilol Patient became extremely tired fatigue, unable to breathe Intubated and taken to the ICU Low blood pressure tino- intubation, treated with IV norepinephrine Discussed with the nurses Goals for IV norepinephrine use: MAP of 65 mmHg and a systolic blood pressure of >90 mmHg Gradually taper off norepinephrine drip to with these parameters Start IV Lasix drip Hold valsartan, hold carvedilol Continue IV heparin Continue atorvastatin and aspirin Patient has a past history of acute myocardial infarction many years back. Diabetes type 2 He took himself off most of his medications and was not on any cardiac or diabetes medication when he first came in Has not seen a manager search engine in many years We will attempt to obtain any relevant records from his primary care physician regarding his cardiac assessments in the last few years Current Condition: critical
[2022-09-07] MEDS: MAGNESIUM SULFATE-D5W PMX 1 GM in DEXTROSE/WATER 1 100ML.BAG IVPB SCH ×2 (20:24→21:33)
[2022-09-07 20:31] LABS: Glucose,Whole Blood 365 mg/dL (70-110)
[2022-09-07] MEDS: INSULIN ASPART (NovoLOG) 100 UNIT/ML VIAL SQ SCH (20:34)
[2022-09-07] MEDS: HEPARIN SODIUM 1,000 UN/ML (10ML VL) IV PRN (20:38)
[2022-09-07] MEDS ORDERED: FUROSEMIDE 10 MG/ML 4 ML VIAL IV SCH (21:00)
[2022-09-07] MEDS: IPRATROPIUM-ALBUTEROL 3 ML NEB INHALATION SCH ×2 (21:06→23:53)
[2022-09-07 21:20] LABS: Chol/HDL Ratio 5.08 Ratio; LDL Cholesterol,Calculated 148.2 mg/dL (0.0-131.0)
[2022-09-07] MEDS: fentaNYL (PF) 50 MCG/ML 2 ML AMP IVP PRN (21:20)
[2022-09-07] MEDS: CHLORHEXIDINE GLUCONATE 15 ML CUP MUCOUS MEM SCH (21:21)
[2022-09-07] MEDS: FAMOTIDINE 20 MG TAB PO SCH ×2 (21:21→21:28)
[2022-09-07] MEDS: FAMOTIDINE 20 MG/2 ML VIAL IV SCH (21:47)
--- NOTE | 2022-09-07 22:42 | P.PCN ---
Date of Procedure: 09/07/22 Preoperative Diagnosis: Acute hypoxic respiratory failure, pulmonary edema Postoperative Diagnosis: Same Procedure(s) Performed: Central line insertion Anesthesia: local Surgeon: Linnea Tena Estimated Blood Loss (ml): 0 Pathology: none sent Condition: critical Disposition: ICU Operative Findings: Indication: Hemodynamic monitoring/Intravenous access. A time-out was completed verifying correct patient, procedure, site, positioning, and implant(s) or special equipment if applicable. The patient was placed in a dependent position appropriate for central line placement based on the vein to be cannulated. The patient's left neck was prepped and draped in sterile fashion. 1% Lidocaine was used to anesthetize the surrounding skin area. A triple lumen 9F Cordis catheter was introduced into the left internal jugular vein using Seldinger technique. The catheter was threaded smoothly over the guide wire and appropriate blood return was obtained. Each lumen of the catheter was evacuated of air and flushed with sterile saline. The catheter was then sutured in place to the skin and a sterile dressing applied. Perfusion to the extremity distal to the point of catheter insertion was checked and found to be adequate. The patient tolerated the procedure well and there were no complications.
[2022-09-08] LABS: Glucose,Whole Blood 334 mg/dL (70-110)
[2022-09-08] MEDS: INSULIN ASPART (NovoLOG) 100 UNIT/ML VIAL SQ SCH ×5 (00:23→23:53)
[2022-09-08] MEDS: fentaNYL (PF) 50 MCG/ML 2 ML AMP IVP PRN (00:32)
[2022-09-08] MEDS: FUROSEMIDE 100 MG in SODIUM CHLORIDE 0.9% 90 ML IV SCH ×2 (03:21→18:05)
[2022-09-08 04:14] LABS: Basophils # (A) 0.1 k/uL (0-0.2); Basophils % (A) 0 %; Eosinophils # (A) 0.1 k/uL (0-0.7); Eosinophils % (A) 1 %; HCT 37.4 % (39.0-53.0); HGB 12.4 gm/dL (13.0-17.5); Lymphocytes # (A) 2.5 k/uL (1.0-4.8); Lymphocytes % (A) 19 %; MCH 29.7 pg (25.0-35.0); MCHC 33.2 g/dL (31.0-37.0); MCV 89.5 fL (80.0-100.0); Mean Platelet Volume 9.2; Monocytes # (A) 0.8 k/uL (0-1.0); Monocytes % (A) 6 %; Neutrophils # (A) 9.5 k/uL (1.3-7.7); Neutrophils % (A) 73 %; Platelet Count 260 k/uL (150-450); RBC 4.17 m/uL (4.30-5.90); RDW 14.8 % (11.5-15.5)
[2022-09-08] MEDS: IPRATROPIUM-ALBUTEROL 3 ML NEB INHALATION SCH ×6 (04:19→23:49)
[2022-09-08] MEDS: NOREPINEPHRINE 4 MG in SODIUM CHLORIDE 0.9% 250 ML IV SCH ×3 (05:26→15:55)
[2022-09-08 05:33] LABS: ALT 35 U/L (4-49); AST 92 U/L (17-59); African American GFR (CKD) 58 (>60 ml/min/1.73 sqM); Albumin 3.2 g/dL (3.5-5.0); Alkaline Phosphatase 63 U/L (38-126); Anion Gap 9 mmol/L; Blood Urea Nitrogen 23 mg/dL (9-20); Calcium 8.2 mg/dL (8.4-10.2); Carbon Dioxide 22 mmol/L (22-30); Chloride 104 mmol/L (98-107); Glucose 340 mg/dL (74-99); Magnesium 2.4 mg/dL (1.6-2.3); Non-African American GFR(CKD) 50 (>60 ml/min/1.73 sqM); Phosphorus 3.1 mg/dL (2.5-4.5); Potassium 3.8 mmol/L (3.5-5.1); Sodium 135 mmol/L (137-145); Total Protein 6.1 g/dL (6.3-8.2)
[2022-09-08] MEDS ORDERED: Potassium Replacement Protocol 1 EACH MISC MISCELLANE PRN (05:45)
[2022-09-08] MEDS ORDERED: INSULIN ASPART (NovoLOG) 100 UNIT/ML VIAL SQ ONE (05:47)
[2022-09-08 05:48] LABS: ABG Base Excess -0.7 mmol/L; ABG HCO3 23 mmol/L (21-25); ABG PCO2 29 mmHg (35-45); ABG PO2 124 mmHg (83-108); ABG TCO2 23 mmol/L (19-24); Allen Test Performed? Yes
[2022-09-08] MEDS: POTASSIUM CHLORIDE 10 MEQ in WATER FOR INJECTION 1 100ML.BAG IVPB SCH ×2 (06:10→07:12)
--- NOTE | 2022-09-08 08:29 | XR ---
EXAMINATION TYPE: XR chest 1V portable DATE OF EXAM: 09/08/2022 COMPARISON: 09/07/2022 HISTORY: Tube placement TECHNIQUE: Single frontal view of the chest is obtained. FINDINGS: ET tube, NG tube and central line appear in good position and stable. There is persistent left lower lobe consolidation and small effusion. Improvement in the bilateral perihilar infiltrates. No sizable pneumothorax. Arthropathy of the shoulders. IMPRESSION: 1. Improving bilateral perihilar infiltrates with persistent left lower lobe consolidation and small effusion.
[2022-09-08] MEDS: FAMOTIDINE 20 MG/2 ML VIAL IV SCH ×2 (08:32→20:36)
[2022-09-08] MEDS: ATORVASTATIN 40 MG TAB PO SCH (08:32)
[2022-09-08] MEDS: INSULIN DETEMIR (LEVEMIR) 100 UNIT/ML SYR SQ SCH (08:32)
[2022-09-08] MEDS: CHLORHEXIDINE GLUCONATE 15 ML CUP MUCOUS MEM SCH ×2 (08:32→20:36)
[2022-09-08] MEDS: ASPIRIN 81 MG PO SCH (08:33)
[2022-09-08] MEDS: HEPARIN SOD,PORK IN 0.45% NACL 25,000 UNIT in 0.45% NACL 1 250ML.BAG IV SCH (08:44)
[2022-09-08] MEDS: SODIUM CHLORIDE 0.9% 1,000 ML IV SCH (09:19)
--- NOTE | 2022-09-08 09:25 | P.PN ---
Subjective Progress Note Date: 09/08/22 Patient is a 67-year-old male with a history of coronary artery disease status post stenting many years ago, diabetes mellitus type 2 currently not on any medications, and osteoarthritis who presented to the ER via EMS for complaints of increasing shortness of breath. On arrival to the ER he underwent an extensive evaluation. His pulse was 118, respirations 32, blood pressure 163/114, and O2 sat was 85% on CPAP. Laboratory analysis was remarkable for white blood cell count of 12.8, sodium 135, carbon dioxide 13, glucose 186, lactic acid 5.6, total bilirubin 1.6, AST 124, ALT 55, troponin 12.5, and BNP 2930. Chest x-ray showed findings suspicious for pulmonary fibrosis with loera perimposed left perihilar infiltrate and interstitial pneumonitis. Patient seen and examined at bedside. He is sedated on vent. Recent urine output has been between 20-70 ml/hr. Vital signs reviewed General: nontoxic, no distress, appears at stated age Cardiovascular: S1S2 reg, no murmur, positive posterior tibial pulse bilateral, Lungs: CTA bilateral, no rhonchi, no rales , no accessory muscle use Abdominal: soft, nontender to palpation, no guarding, no appreciable organomegaly Ext: no gross muscle atrophy, no edema b/l lower extremities, no contractures Neuro: CN II-XI grossly intact, no focal neuro deficits Psych: Alert, oriented, appropriate affect Assessment/Plan: Non-STEMI Acute hypoxic respiratory failure Cardiogenic pulmonary edema Cardiomyopathy, suspect ischemic Cardiogenic shock Hx SD and CAD with PCI -Per nursing plan is for impella today - Await further cardio notes: then have decreased lasix to 5 mg/hr. - Case discussed with Dr. Youngblood and remain on vent - strict I and O, daily weights - currently NPO - continue with nitro gtt and heparin gtt - ASA, Lipitor - no BB or ACEI due to hypotension Acute kidney injury -This is secondary to decreased perfusion from low blood pressures. -Doubt that Lasix has any clinical significance of the increasing creatinine, and is likely due to hypoperfusion from decreased cardiac ejection fraction as well as low blood pressures overnight -Lasix drip decreased by cardiology -Continue to monitor renal function -Continue to monitor urine output - Off ACEI/ARB - maintain MAP > 65 DM 2 - Add levemir 10 units daily, conitnue with SSI q 6 hours - follow BS - A1C 11.2 Hypertensive urgency, resolved Lactic acidosis, resolved Imaging: CXR- reviewed and left basilar infiltrate, increased intersitital infiltrate Data Review: Vitals reviewed and pulse 73, respirations 20; blood pressure 93/63, O2 sat 97% on 40% spent Laboratory data remarkable for white blood cell count 13, hemoglobin 12.4, sodium 135, BUN 23, creatinine 1.43, glucose 340, A1c 11.2, troponin 27. Cholesterol profile reviewed total cholesterol 242, LDL 148, VLDL 46 DVT prophylaxis: Heparin gtt Anticipated discharge date: Pending Clinical Course Anticipated discharge place: Pending Clinical Course This dictation was prepared using [employer] voice recognition software. Though every attempt is made to correct errors during dictation some may still exist. Objective - Vital Signs Vital signs: Vital Signs Temp 98.7 F 09/08/22 08:51 Pulse 76 09/08/22 09:09 Resp 27 H 09/08/22 09:00 BP 93/63 09/08/22 09:00 Pulse Ox 97 09/08/22 09:00 FiO2 40 09/08/22 09:00 Intake & Output 09/07/22 09/08/22 09/08/22 18:59 06:59 18:59 Intake Total 115.117 911.736 451.342 Output Total 755 55 Balance 115.117 156.736 396.342 Weight 81.647 kg 84.4 kg Intake: IV 280 0.9 NS @ 10 ml/hr 80 Magnesium Sulfate-D5w Pmx 200 1 gm In Dextrose/Water 1 100ml.bag @ 100 mls/hr IVPB Q1H [facility] Rx#: [id number] Intake, IV Titration 115.117 631.736 401.342 Amount Furosemide 100 mg In 71.333 51.5 Sodium Chloride 0.9% 90 ml @ 5 MG/HR 5 mls/hr IV .Q20H [facility] Rx#:[id number] Heparin Sod,Pork in 0.45% 9.798 78.057 152.604 NaCl 25,000 unit In 0.45 % NaCl 1 250ml.bag @ 12 UNITS/KG/HR 9.798 mls/hr IV .Q24H [facility] Rx#: [id number] Nitroglycerin-D5w Pmx 50 1.40 mg In Dextrose/Water 1 250ml.bag @ 5 MCG/MIN 1.5 mls/hr IV .Q24H ONE Rx#: [id number] Norepinephrine 4 mg In 260.162 57.238 Sodium Chloride 0.9% 250 ml @ 0.03 MCG/KG/MIN 9. 332 mls/hr IV .Q24H [facility] Rx#:[id number] Potassium Chloride 10 meq 100 In Water For Injection 1 100ml.bag @ 100 mls/hr IVPB Q1H [facility] Rx#: [id number] Sodium Chloride 0.9% 1, 40 000 ml @ 20 mls/hr IV . Q24H [facility] Rx#:[id number] propofoL 1,000 mg In 103.919 222.184 Empty Bag 1 bag @ 15 MCG/ KG/MIN 7.348 mls/hr IV . [id number] [facility] Rx#:[id number] Oral 0 Other 50 Output: Urine 755 55 Other: Voiding Method Indwelling Catheter Indwelling Catheter Indwelling Catheter ABP, PAP, CO, CI - Last Documented Arterial Blood Pressure 93/57 - Labs CBC & Chem 7: 09/08/22 04:00 09/08/22 04:00 Labs: Abnormal Lab Results - Last 24 Hours (Table) 09/07/22 09/07/22 09/07/22 Range/Units 09:37 09:37 09:37 WBC 12.8 H (3.8-10.6) k/uL RBC (4.30-5.90) m/uL Hgb (13.0-17.5) gm/dL Hct (39.0-53.0) % MCHC 30.7 L (31.0-37.0) g/dL Neutrophils # 9.7 H (1.3-7.7) k/uL APTT 20.9 L (22.0-30.0) sec ABG pH (7.35-7.45) ABG pCO2 (35-45) mmHg ABG pO2 (83-108) mmHg ABG Total CO2 (19-24) mmol/L ABG O2 Saturation (94-97) % Sodium 135 L (137-145) mmol/L Carbon Dioxide 17 L (22-30) mmol/L BUN (9-20) mg/dL Creatinine (0.66-1.25) mg/dL Glucose 386 H (74-99) mg/dL POC Glucose (mg/dL) (70-110) mg/dL Hemoglobin A1c (<=6.0) % Plasma Lactic Acid Pieter (0.7-2.0) mmol/L Calcium (8.4-10.2) mg/dL Magnesium (1.6-2.3) mg/dL Total Bilirubin 1.6 H (0.2-1.3) mg/dL AST 124 H (17-59) U/L ALT 55 H (4-49) U/L Troponin I (0.000-0.034) ng/mL Total Protein (6.3-8.2) g/dL Albumin (3.5-5.0) g/dL Triglycerides (0.00-149.00) mg/dL Cholesterol (0.00-200.00) mg/dL LDL Cholesterol, Calc (0.0-131.0) mg/dL VLDL Cholesterol, Calc (5.00-40.00) mg/dL 09/07/22 09/07/22 09/07/22 Range/Units 09:37 09:37 09:37 WBC (3.8-10.6) k/uL RBC (4.30-5.90) m/uL Hgb (13.0-17.5) gm/dL Hct (39.0-53.0) % MCHC (31.0-37.0) g/dL Neutrophils # (1.3-7.7) k/uL APTT (22.0-30.0) sec ABG pH (7.35-7.45) ABG pCO2 (35-45) mmHg ABG pO2 (83-108) mmHg ABG Total CO2 (19-24) mmol/L ABG O2 Saturation (94-97) % Sodium (137-145) mmol/L Carbon Dioxide (22-30) mmol/L BUN (9-20) mg/dL Creatinine (0.66-1.25) mg/dL Glucose (74-99) mg/dL POC Glucose (mg/dL) (70-110) mg/dL Hemoglobin A1c (<=6.0) % Plasma Lactic Acid Pieter 5.6 H* (0.7-2.0) mmol/L Calcium (8.4-10.2) mg/dL Magnesium (1.6-2.3) mg/dL Total Bilirubin (0.2-1.3) mg/dL AST (17-59) U/L ALT (4-49) U/L Troponin I 12.500 H* (0.000-0.034) ng/mL Total Protein (6.3-8.2) g/dL Albumin (3.5-5.0) g/dL Triglycerides 231.00 H (0.00-149.00) mg/dL Cholesterol 242.00 H (0.00-200.00) mg/dL LDL Cholesterol, Calc 148.2 H (0.0-131.0) mg/dL VLDL Cholesterol, Calc 46.20 H (5.00-40.00) mg/dL 09/07/22 09/07/22 09/07/22 Range/Units 11:47 12:33 12:45 WBC (3.8-10.6) k/uL RBC (4.30-5.90) m/uL Hgb (13.0-17.5) gm/dL Hct (39.0-53.0) % MCHC (31.0-37.0) g/dL Neutrophils # (1.3-7.7) k/uL APTT (22.0-30.0) sec ABG pH (7.35-7.45) ABG pCO2 (35-45) mmHg ABG pO2 (83-108) mmHg ABG Total CO2 (19-24) mmol/L ABG O2 Saturation (94-97) % Sodium (137-145) mmol/L Carbon Dioxide (22-30) mmol/L BUN (9-20) mg/dL Creatinine (0.66-1.25) mg/dL Glucose (74-99) mg/dL POC Glucose (mg/dL) (70-110) mg/dL Hemoglobin A1c 11.2 H (<=6.0) % Plasma Lactic Acid Pieter 2.2 H* (0.7-2.0) mmol/L Calcium (8.4-10.2) mg/dL Magnesium (1.6-2.3) mg/dL Total Bilirubin (0.2-1.3) mg/dL AST (17-59) U/L ALT (4-49) U/L Troponin I 16.200 H* (0.000-0.034) ng/mL Total Protein (6.3-8.2) g/dL Albumin (3.5-5.0) g/dL Triglycerides (0.00-149.00) mg/dL Cholesterol (0.00-200.00) mg/dL LDL Cholesterol, Calc (0.0-131.0) mg/dL VLDL Cholesterol, Calc (5.00-40.00) mg/dL 09/07/22 09/07/22 09/07/22 Range/Units 14:50 16:44 16:44 WBC 11.4 H (3.8-10.6) k/uL RBC (4.30-5.90) m/uL Hgb (13.0-17.5) gm/dL Hct (39.0-53.0) % MCHC (31.0-37.0) g/dL Neutrophils # 9.6 H (1.3-7.7) k/uL APTT (22.0-30.0) sec ABG pH (7.35-7.45) ABG pCO2 (35-45) mmHg ABG pO2 (83-108) mmHg ABG Total CO2 (19-24) mmol/L ABG O2 Saturation (94-97) % Sodium (137-145) mmol/L Carbon Dioxide 21 L (22-30) mmol/L BUN (9-20) mg/dL Creatinine (0.66-1.25) mg/dL Glucose 360 H (74-99) mg/dL POC Glucose (mg/dL) (70-110) mg/dL Hemoglobin A1c (<=6.0) % Plasma Lactic Acid Pieter (0.7-2.0) mmol/L Calcium (8.4-10.2) mg/dL Magnesium (1.6-2.3) mg/dL Total Bilirubin (0.2-1.3) mg/dL AST (17-59) U/L ALT (4-49) U/L Troponin I 18.700 H* (0.000-0.034) ng/mL Total Protein (6.3-8.2) g/dL Albumin (3.5-5.0) g/dL Triglycerides (0.00-149.00) mg/dL Cholesterol (0.00-200.00) mg/dL LDL Cholesterol, Calc (0.0-131.0) mg/dL VLDL Cholesterol, Calc (5.00-40.00) mg/dL 09/07/22 09/07/22 09/07/22 Range/Units 17:40 17:42 17:49 WBC (3.8-10.6) k/uL RBC (4.30-5.90) m/uL Hgb (13.0-17.5) gm/dL Hct (39.0-53.0) % MCHC (31.0-37.0) g/dL Neutrophils # (1.3-7.7) k/uL APTT 37.7 H (22.0-30.0) sec ABG pH 7.32 L (7.35-7.45) ABG pCO2 46 H (35-45) mmHg ABG pO2 (83-108) mmHg ABG Total CO2 25 H (19-24) mmol/L ABG O2 Saturation 97.7 H (94-97) % Sodium (137-145) mmol/L Carbon Dioxide (22-30) mmol/L BUN (9-20) mg/dL Creatinine (0.66-1.25) mg/dL Glucose (74-99) mg/dL POC Glucose (mg/dL) 338 H (70-110) mg/dL Hemoglobin A1c (<=6.0) % Plasma Lactic Acid Pieter (0.7-2.0) mmol/L Calcium (8.4-10.2) mg/dL Magnesium (1.6-2.3) mg/dL Total Bilirubin (0.2-1.3) mg/dL AST (17-59) U/L ALT (4-49) U/L Troponin I (0.000-0.034) ng/mL Total Protein (6.3-8.2) g/dL Albumin (3.5-5.0) g/dL Triglycerides (0.00-149.00) mg/dL Cholesterol (0.00-200.00) mg/dL LDL Cholesterol, Calc (0.0-131.0) mg/dL VLDL Cholesterol, Calc (5.00-40.00) mg/dL 09/07/22 09/07/22 09/07/22 Range/Units 18:05 20:30 23:58 WBC (3.8-10.6) k/uL RBC (4.30-5.90) m/uL Hgb (13.0-17.5) gm/dL Hct (39.0-53.0) % MCHC (31.0-37.0) g/dL Neutrophils # (1.3-7.7) k/uL APTT (22.0-30.0) sec ABG pH (7.35-7.45) ABG pCO2 (35-45) mmHg ABG pO2 (83-108) mmHg ABG Total CO2 (19-24) mmol/L ABG O2 Saturation (94-97) % Sodium (137-145) mmol/L Carbon Dioxide (22-30) mmol/L BUN (9-20) mg/dL Creatinine (0.66-1.25) mg/dL Glucose (74-99) mg/dL POC Glucose (mg/dL) 365 H 334 H (70-110) mg/dL Hemoglobin A1c (<=6.0) % Plasma Lactic Acid Pieter (0.7-2.0) mmol/L Calcium (8.4-10.2) mg/dL Magnesium (1.6-2.3) mg/dL Total Bilirubin (0.2-1.3) mg/dL AST (17-59) U/L ALT (4-49) U/L Troponin I 16.300 H* (0.000-0.034) ng/mL Total Protein (6.3-8.2) g/dL Albumin (3.5-5.0) g/dL Triglycerides (0.00-149.00) mg/dL Cholesterol (0.00-200.00) mg/dL LDL Cholesterol, Calc (0.0-131.0) mg/dL VLDL Cholesterol, Calc (5.00-40.00) mg/dL 09/08/22 09/08/22 09/08/22 Range/Units 00:10 01:35 04:00 WBC (3.8-10.6) k/uL RBC (4.30-5.90) m/uL Hgb (13.0-17.5) gm/dL Hct (39.0-53.0) % MCHC (31.0-37.0) g/dL Neutrophils # (1.3-7.7) k/uL APTT 76.9 H (22.0-30.0) sec ABG pH (7.35-7.45) ABG pCO2 (35-45) mmHg ABG pO2 (83-108) mmHg ABG Total CO2 (19-24) mmol/L ABG O2 Saturation (94-97) % Sodium (137-145) mmol/L Carbon Dioxide (22-30) mmol/L BUN (9-20) mg/dL Creatinine (0.66-1.25) mg/dL Glucose (74-99) mg/dL POC Glucose (mg/dL) (70-110) mg/dL Hemoglobin A1c 11.1 H (<=6.0) % Plasma Lactic Acid Pieter (0.7-2.0) mmol/L Calcium (8.4-10.2) mg/dL Magnesium (1.6-2.3) mg/dL Total Bilirubin (0.2-1.3) mg/dL AST (17-59) U/L ALT (4-49) U/L Troponin I 27.700 H* (0.000-0.034) ng/mL Total Protein (6.3-8.2) g/dL Albumin (3.5-5.0) g/dL Triglycerides (0.00-149.00) mg/dL Cholesterol (0.00-200.00) mg/dL LDL Cholesterol, Calc (0.0-131.0) mg/dL VLDL Cholesterol, Calc (5.00-40.00) mg/dL 09/08/22 09/08/22 09/08/22 Range/Units 04:00 04:00 04:00 WBC 13.0 H (3.8-10.6) k/uL RBC 4.17 L (4.30-5.90) m/uL Hgb 12.4 L (13.0-17.5) gm/dL Hct 37.4 L (39.0-53.0) % MCHC (31.0-37.0) g/dL Neutrophils # 9.5 H (1.3-7.7) k/uL APTT 67.8 H (22.0-30.0) sec ABG pH (7.35-7.45) ABG pCO2 (35-45) mmHg ABG pO2 (83-108) mmHg ABG Total CO2 (19-24) mmol/L ABG O2 Saturation (94-97) % Sodium 135 L (137-145) mmol/L Carbon Dioxide (22-30) mmol/L BUN 23 H (9-20) mg/dL Creatinine 1.43 H (0.66-1.25) mg/dL Glucose 340 H (74-99) mg/dL POC Glucose (mg/dL) (70-110) mg/dL Hemoglobin A1c (<=6.0) % Plasma Lactic Acid Pieter (0.7-2.0) mmol/L Calcium 8.2 L (8.4-10.2) mg/dL Magnesium 2.4 H (1.6-2.3) mg/dL Total Bilirubin (0.2-1.3) mg/dL AST 92 H (17-59) U/L ALT (4-49) U/L Troponin I (0.000-0.034) ng/mL Total Protein 6.1 L (6.3-8.2) g/dL Albumin 3.2 L (3.5-5.0) g/dL Triglycerides (0.00-149.00) mg/dL Cholesterol (0.00-200.00) mg/dL LDL Cholesterol, Calc (0.0-131.0) mg/dL VLDL Cholesterol, Calc (5.00-40.00) mg/dL 09/08/22 09/08/22 Range/Units 04:00 05:45 WBC (3.8-10.6) k/uL RBC (4.30-5.90) m/uL Hgb (13.0-17.5) gm/dL Hct (39.0-53.0) % MCHC (31.0-37.0) g/dL Neutrophils # (1.3-7.7) k/uL APTT (22.0-30.0) sec ABG pH 7.50 H (7.35-7.45) ABG pCO2 29 L (35-45) mmHg ABG pO2 124 H (83-108) mmHg ABG Total CO2 (19-24) mmol/L ABG O2 Saturation 99.0 H (94-97) % Sodium (137-145) mmol/L Carbon Dioxide (22-30) mmol/L BUN (9-20) mg/dL Creatinine (0.66-1.25) mg/dL Glucose (74-99) mg/dL POC Glucose (mg/dL) (70-110) mg/dL Hemoglobin A1c (<=6.0) % Plasma Lactic Acid Pieter (0.7-2.0) mmol/L Calcium (8.4-10.2) mg/dL Magnesium (1.6-2.3) mg/dL Total Bilirubin (0.2-1.3) mg/dL AST (17-59) U/L ALT (4-49) U/L Troponin I 27.800 H* (0.000-0.034) ng/mL Total Protein (6.3-8.2) g/dL Albumin (3.5-5.0) g/dL Triglycerides (0.00-149.00) mg/dL Cholesterol (0.00-200.00) mg/dL LDL Cholesterol, Calc (0.0-131.0) mg/dL VLDL Cholesterol, Calc (5.00-40.00) mg/dL
--- NOTE | 2022-09-08 09:30 | P.PN ---
Subjective Progress Note Date: 09/08/22 The patient is a 67-year-old male who is currently admitted with hypertensive emergency and non-ST elevated myocardial infarction. Over the last 24 hours the patient has subsequently been intubated and is sedated in the ICU. He has on a small amount of Levophed as well as a Lasix drip. Troponins have peaked at 27. Echocardiogram revealed severely reduced LV function at 20-25%. Chest x-ray shows improvement in pulmonary congestion. The patient continues to make urine, however recent rise in kidney function. Dr. Alicea reviewed case with on-call interventional is Dr. Terry. Plan for coronary angiogram and possible Impella placement. GENERAL: Ill-appearing, well-nourished and in no acute distress. Sedated on propofol NECK: Supple without JVD or thyromegaly. LUNGS: Breath sounds diminished to auscultation bilaterally. Respiration equal and unlabored. Bilateral rhonchi. HEART: Regular rate and rhythm without murmurs, rubs or gallops. S1 and S2 heard. EXTREMITIES: Normal range of motion, no edema. No clubbing or cyanosis. Peripheral pulses intact and strong. TELEMETRY: Sinus rhythm overnight. No arrhythmias. LABS: WBC 13.0, hemoglobin 12.4, hematocrit 37.4, platelet 260, sodium 135, potassium 3.8, BUN 23, creatinine 1.43, AST 92, ALT 35 Troponin levels: 12.5, 16.2, 18.7, 16.3, 27.7, 27.8 IMPRESSION: Non-ST elevated myocardial infarction Cardiogenic shock Ischemic cardiomyopathy, EF 20-25% Pulmonary edema Acute hypoxic respiratory failure History of coronary artery disease History of diabetes PLAN: Titrate furosemide as patient has rising BUN and creatinine Continue strict I's and O's Coronary angiogram with possible Impella placement Prognosis is guarded. Further recommendations to be based on clinical course. I am dictating on behalf of Dr Wofl Alicea's history/physical and assessment/plan. Objective - Vital Signs Vital signs: Vital Signs Temp 98.7 F 09/08/22 08:51 Pulse 76 09/08/22 09:09 Resp 27 H 09/08/22 09:00 BP 93/63 09/08/22 09:00 Pulse Ox 97 09/08/22 09:00 FiO2 40 06/23/23 09:00 Intake & Output 09/07/22 09/08/22 09/08/22 18:59 06:59 18:59 Intake Total 115.117 911.736 451.342 Output Total 755 55 Balance 115.117 156.736 396.342 Weight 81.647 kg 84.4 kg Intake: IV 280 0.9 NS @ 10 ml/hr 80 Magnesium Sulfate-D5w Pmx 200 1 gm In Dextrose/Water 1 100ml.bag @ 100 mls/hr IVPB Q1H [facility] Rx#: [id number] Intake, IV Titration 115.117 631.736 401.342 Amount Furosemide 100 mg In 71.333 51.5 Sodium Chloride 0.9% 90 ml @ 5 MG/HR 5 mls/hr IV .Q20H [facility] Rx#:[id number] Heparin Sod,Pork in 0.45% 9.798 78.057 152.604 NaCl 25,000 unit In 0.45 % NaCl 1 250ml.bag @ 12 UNITS/KG/HR 9.798 mls/hr IV .Q24H [facility] Rx#: [id number] Nitroglycerin-D5w Pmx 50 1.40 mg In Dextrose/Water 1 250ml.bag @ 5 MCG/MIN 1.5 mls/hr IV .Q24H ONE Rx#: [id number] Norepinephrine 4 mg In 260.162 57.238 Sodium Chloride 0.9% 250 ml @ 0.03 MCG/KG/MIN 9. 332 mls/hr IV .Q24H [facility] Rx#:[id number] Potassium Chloride 10 meq 100 In Water For Injection 1 100ml.bag @ 100 mls/hr IVPB Q1H [facility] Rx#: [id number] Sodium Chloride 0.9% 1, 40 000 ml @ 20 mls/hr IV . Q24H [facility] Rx#:[id number] propofoL 1,000 mg In 103.919 222.184 Empty Bag 1 bag @ 15 MCG/ KG/MIN 7.348 mls/hr IV . [id number] [facility] Rx#:[id number] Oral 0 Other 50 Output: Urine 755 55 Other: Voiding Method Indwelling Catheter Indwelling Catheter Indwelling Catheter ABP, PAP, CO, CI - Last Documented Arterial Blood Pressure 93/57 - Labs CBC & Chem 7: 09/08/22 04:00 09/08/22 04:00 Labs: Abnormal Lab Results - Last 24 Hours (Table) 09/07/22 09/07/22 09/07/22 Range/Units 09:37 09:37 09:37 WBC 12.8 H (3.8-10.6) k/uL RBC (4.30-5.90) m/uL Hgb (13.0-17.5) gm/dL Hct (39.0-53.0) % MCHC 30.7 L (31.0-37.0) g/dL Neutrophils # 9.7 H (1.3-7.7) k/uL APTT 20.9 L (22.0-30.0) sec ABG pH (7.35-7.45) ABG pCO2 (35-45) mmHg ABG pO2 (83-108) mmHg ABG Total CO2 (19-24) mmol/L ABG O2 Saturation (94-97) % Sodium 135 L (137-145) mmol/L Carbon Dioxide 17 L (22-30) mmol/L BUN (9-20) mg/dL Creatinine (0.66-1.25) mg/dL Glucose 386 H (74-99) mg/dL POC Glucose (mg/dL) (70-110) mg/dL Hemoglobin A1c (<=6.0) % Plasma Lactic Acid Pieter (0.7-2.0) mmol/L Calcium (8.4-10.2) mg/dL Magnesium (1.6-2.3) mg/dL Total Bilirubin 1.6 H (0.2-1.3) mg/dL AST 124 H (17-59) U/L ALT 55 H (4-49) U/L Troponin I (0.000-0.034) ng/mL Total Protein (6.3-8.2) g/dL Albumin (3.5-5.0) g/dL Triglycerides (0.00-149.00) mg/dL Cholesterol (0.00-200.00) mg/dL LDL Cholesterol, Calc (0.0-131.0) mg/dL VLDL Cholesterol, Calc (5.00-40.00) mg/dL 09/07/22 09/07/22 09/07/22 Range/Units 09:37 09:37 09:37 WBC (3.8-10.6) k/uL RBC (4.30-5.90) m/uL Hgb (13.0-17.5) gm/dL Hct (39.0-53.0) % MCHC (31.0-37.0) g/dL Neutrophils # (1.3-7.7) k/uL APTT (22.0-30.0) sec ABG pH (7.35-7.45) ABG pCO2 (35-45) mmHg ABG pO2 (83-108) mmHg ABG Total CO2 (19-24) mmol/L ABG O2 Saturation (94-97) % Sodium (137-145) mmol/L Carbon Dioxide (22-30) mmol/L BUN (9-20) mg/dL Creatinine (0.66-1.25) mg/dL Glucose (74-99) mg/dL POC Glucose (mg/dL) (70-110) mg/dL Hemoglobin A1c (<=6.0) % Plasma Lactic Acid Pieter 5.6 H* (0.7-2.0) mmol/L Calcium (8.4-10.2) mg/dL Magnesium (1.6-2.3) mg/dL Total Bilirubin (0.2-1.3) mg/dL AST (17-59) U/L ALT (4-49) U/L Troponin I 12.500 H* (0.000-0.034) ng/mL Total Protein (6.3-8.2) g/dL Albumin (3.5-5.0) g/dL Triglycerides 231.00 H (0.00-149.00) mg/dL Cholesterol 242.00 H (0.00-200.00) mg/dL LDL Cholesterol, Calc 148.2 H (0.0-131.0) mg/dL VLDL Cholesterol, Calc 46.20 H (5.00-40.00) mg/dL 09/07/22 09/07/22 09/07/22 Range/Units 11:47 12:33 12:45 WBC (3.8-10.6) k/uL RBC (4.30-5.90) m/uL Hgb (13.0-17.5) gm/dL Hct (39.0-53.0) % MCHC (31.0-37.0) g/dL Neutrophils # (1.3-7.7) k/uL APTT (22.0-30.0) sec ABG pH (7.35-7.45) ABG pCO2 (35-45) mmHg ABG pO2 (83-108) mmHg ABG Total CO2 (19-24) mmol/L ABG O2 Saturation (94-97) % Sodium (137-145) mmol/L Carbon Dioxide (22-30) mmol/L BUN (9-20) mg/dL Creatinine (0.66-1.25) mg/dL Glucose (74-99) mg/dL POC Glucose (mg/dL) (70-110) mg/dL Hemoglobin A1c 11.2 H (<=6.0) % Plasma Lactic Acid Pieter 2.2 H* (0.7-2.0) mmol/L Calcium (8.4-10.2) mg/dL Magnesium (1.6-2.3) mg/dL Total Bilirubin (0.2-1.3) mg/dL AST (17-59) U/L ALT (4-49) U/L Troponin I 16.200 H* (0.000-0.034) ng/mL Total Protein (6.3-8.2) g/dL Albumin (3.5-5.0) g/dL Triglycerides (0.00-149.00) mg/dL Cholesterol (0.00-200.00) mg/dL LDL Cholesterol, Calc (0.0-131.0) mg/dL VLDL Cholesterol, Calc (5.00-40.00) mg/dL 09/07/22 09/07/22 09/07/22 Range/Units 14:50 16:44 16:44 WBC 11.4 H (3.8-10.6) k/uL RBC (4.30-5.90) m/uL Hgb (13.0-17.5) gm/dL Hct (39.0-53.0) % MCHC (31.0-37.0) g/dL Neutrophils # 9.6 H (1.3-7.7) k/uL APTT (22.0-30.0) sec ABG pH (7.35-7.45) ABG pCO2 (35-45) mmHg ABG pO2 (83-108) mmHg ABG Total CO2 (19-24) mmol/L ABG O2 Saturation (94-97) % Sodium (137-145) mmol/L Carbon Dioxide 21 L (22-30) mmol/L BUN (9-20) mg/dL Creatinine (0.66-1.25) mg/dL Glucose 360 H (74-99) mg/dL POC Glucose (mg/dL) (70-110) mg/dL Hemoglobin A1c (<=6.0) % Plasma Lactic Acid Pieter (0.7-2.0) mmol/L Calcium (8.4-10.2) mg/dL Magnesium (1.6-2.3) mg/dL Total Bilirubin (0.2-1.3) mg/dL AST (17-59) U/L ALT (4-49) U/L Troponin I 18.700 H* (0.000-0.034) ng/mL Total Protein (6.3-8.2) g/dL Albumin (3.5-5.0) g/dL Triglycerides (0.00-149.00) mg/dL Cholesterol (0.00-200.00) mg/dL LDL Cholesterol, Calc (0.0-131.0) mg/dL VLDL Cholesterol, Calc (5.00-40.00) mg/dL 09/07/22 09/07/22 09/07/22 Range/Units 17:40 17:42 17:49 WBC (3.8-10.6) k/uL RBC (4.30-5.90) m/uL Hgb (13.0-17.5) gm/dL Hct (39.0-53.0) % MCHC (31.0-37.0) g/dL Neutrophils # (1.3-7.7) k/uL APTT 37.7 H (22.0-30.0) sec ABG pH 7.32 L (7.35-7.45) ABG pCO2 46 H (35-45) mmHg ABG pO2 (83-108) mmHg ABG Total CO2 25 H (19-24) mmol/L ABG O2 Saturation 97.7 H (94-97) % Sodium (137-145) mmol/L Carbon Dioxide (22-30) mmol/L BUN (9-20) mg/dL Creatinine (0.66-1.25) mg/dL Glucose (74-99) mg/dL POC Glucose (mg/dL) 338 H (70-110) mg/dL Hemoglobin A1c (<=6.0) % Plasma Lactic Acid Pieter (0.7-2.0) mmol/L Calcium (8.4-10.2) mg/dL Magnesium (1.6-2.3) mg/dL Total Bilirubin (0.2-1.3) mg/dL AST (17-59) U/L ALT (4-49) U/L Troponin I (0.000-0.034) ng/mL Total Protein (6.3-8.2) g/dL Albumin (3.5-5.0) g/dL Triglycerides (0.00-149.00) mg/dL Cholesterol (0.00-200.00) mg/dL LDL Cholesterol, Calc (0.0-131.0) mg/dL VLDL Cholesterol, Calc (5.00-40.00) mg/dL 09/07/22 09/07/22 09/07/22 Range/Units 18:05 20:30 23:58 WBC (3.8-10.6) k/uL RBC (4.30-5.90) m/uL Hgb (13.0-17.5) gm/dL Hct (39.0-53.0) % MCHC (31.0-37.0) g/dL Neutrophils # (1.3-7.7) k/uL APTT (22.0-30.0) sec ABG pH (7.35-7.45) ABG pCO2 (35-45) mmHg ABG pO2 (83-108) mmHg ABG Total CO2 (19-24) mmol/L ABG O2 Saturation (94-97) % Sodium (137-145) mmol/L Carbon Dioxide (22-30) mmol/L BUN (9-20) mg/dL Creatinine (0.66-1.25) mg/dL Glucose (74-99) mg/dL POC Glucose (mg/dL) 365 H 334 H (70-110) mg/dL Hemoglobin A1c (<=6.0) % Plasma Lactic Acid Pieter (0.7-2.0) mmol/L Calcium (8.4-10.2) mg/dL Magnesium (1.6-2.3) mg/dL Total Bilirubin (0.2-1.3) mg/dL AST (17-59) U/L ALT (4-49) U/L Troponin I 16.300 H* (0.000-0.034) ng/mL Total Protein (6.3-8.2) g/dL Albumin (3.5-5.0) g/dL Triglycerides (0.00-149.00) mg/dL Cholesterol (0.00-200.00) mg/dL LDL Cholesterol, Calc (0.0-131.0) mg/dL VLDL Cholesterol, Calc (5.00-40.00) mg/dL 09/08/22 09/08/22 09/08/22 Range/Units 00:10 01:35 04:00 WBC 13.0 H (3.8-10.6) k/uL RBC 4.17 L (4.30-5.90) m/uL Hgb 12.4 L (13.0-17.5) gm/dL Hct 37.4 L (39.0-53.0) % MCHC (31.0-37.0) g/dL Neutrophils # 9.5 H (1.3-7.7) k/uL APTT 76.9 H (22.0-30.0) sec ABG pH (7.35-7.45) ABG pCO2 (35-45) mmHg ABG pO2 (83-108) mmHg ABG Total CO2 (19-24) mmol/L ABG O2 Saturation (94-97) % Sodium (137-145) mmol/L Carbon Dioxide (22-30) mmol/L BUN (9-20) mg/dL Creatinine (0.66-1.25) mg/dL Glucose (74-99) mg/dL POC Glucose (mg/dL) (70-110) mg/dL Hemoglobin A1c (<=6.0) % Plasma Lactic Acid Pieter (0.7-2.0) mmol/L Calcium (8.4-10.2) mg/dL Magnesium (1.6-2.3) mg/dL Total Bilirubin (0.2-1.3) mg/dL AST (17-59) U/L ALT (4-49) U/L Troponin I 27.700 H* (0.000-0.034) ng/mL Total Protein (6.3-8.2) g/dL Albumin (3.5-5.0) g/dL Triglycerides (0.00-149.00) mg/dL Cholesterol (0.00-200.00) mg/dL LDL Cholesterol, Calc (0.0-131.0) mg/dL VLDL Cholesterol, Calc (5.00-40.00) mg/dL 09/08/22 09/08/22 09/08/22 Range/Units 04:00 04:00 04:00 WBC (3.8-10.6) k/uL RBC (4.30-5.90) m/uL Hgb (13.0-17.5) gm/dL Hct (39.0-53.0) % MCHC (31.0-37.0) g/dL Neutrophils # (1.3-7.7) k/uL APTT 67.8 H (22.0-30.0) sec ABG pH (7.35-7.45) ABG pCO2 (35-45) mmHg ABG pO2 (83-108) mmHg ABG Total CO2 (19-24) mmol/L ABG O2 Saturation (94-97) % Sodium 135 L (137-145) mmol/L Carbon Dioxide (22-30) mmol/L BUN 23 H (9-20) mg/dL Creatinine 1.43 H (0.66-1.25) mg/dL Glucose 340 H (74-99) mg/dL POC Glucose (mg/dL) (70-110) mg/dL Hemoglobin A1c (<=6.0) % Plasma Lactic Acid Pieter (0.7-2.0) mmol/L Calcium 8.2 L (8.4-10.2) mg/dL Magnesium 2.4 H (1.6-2.3) mg/dL Total Bilirubin (0.2-1.3) mg/dL AST 92 H (17-59) U/L ALT (4-49) U/L Troponin I 27.800 H* (0.000-0.034) ng/mL Total Protein 6.1 L (6.3-8.2) g/dL Albumin 3.2 L (3.5-5.0) g/dL Triglycerides (0.00-149.00) mg/dL Cholesterol (0.00-200.00) mg/dL LDL Cholesterol, Calc (0.0-131.0) mg/dL VLDL Cholesterol, Calc (5.00-40.00) mg/dL 09/08/22 Range/Units 05:45 WBC (3.8-10.6) k/uL RBC (4.30-5.90) m/uL Hgb (13.0-17.5) gm/dL Hct (39.0-53.0) % MCHC (31.0-37.0) g/dL Neutrophils # (1.3-7.7) k/uL APTT (22.0-30.0) sec ABG pH 7.50 H (7.35-7.45) ABG pCO2 29 L (35-45) mmHg ABG pO2 124 H (83-108) mmHg ABG Total CO2 (19-24) mmol/L ABG O2 Saturation 99.0 H (94-97) % Sodium (137-145) mmol/L Carbon Dioxide (22-30) mmol/L BUN (9-20) mg/dL Creatinine (0.66-1.25) mg/dL Glucose (74-99) mg/dL POC Glucose (mg/dL) (70-110) mg/dL Hemoglobin A1c (<=6.0) % Plasma Lactic Acid Pieter (0.7-2.0) mmol/L Calcium (8.4-10.2) mg/dL Magnesium (1.6-2.3) mg/dL Total Bilirubin (0.2-1.3) mg/dL AST (17-59) U/L ALT (4-49) U/L Troponin I (0.000-0.034) ng/mL Total Protein (6.3-8.2) g/dL Albumin (3.5-5.0) g/dL Triglycerides (0.00-149.00) mg/dL Cholesterol (0.00-200.00) mg/dL LDL Cholesterol, Calc (0.0-131.0) mg/dL VLDL Cholesterol, Calc (5.00-40.00) mg/dL
--- NOTE | 2022-09-08 10:17 | P.PN ---
Subjective Progress Note Date: 09/08/22 A 67-year-old male patient, came into the emergency department because of worsening shortness of breath. The patient lives in [facility] and he has a primary care physician out of [facility]. The patient was visiting here in [place] and became progressively more short of breath. No significant cough or sputum production. No hemoptysis. No pleurisy. No angina. No palpitations. He is known to have CAD and he has undergone stenting many years back and she is not seeing a assisted living manager on a regular basis. He is known to have hypertension. He is an ex-smoker. In the emergency, the patient was found to be hypertensive and he was diagnosed having an acute hypertensive emergency with secondary pulmonary edema. EKG showed some nonspecific ST segment changes in the lateral leads and anteroseptal Q waves. The cardiac rhythm was sinus. The chest x-ray was consistent with pulmonary edema. The patient's initial troponin came back at 12.5. His lactic acid level was at 5.6. ProBNP level was 2930. There was done was 12.8 with hemoglobin 14.3 and a platelet count of 276. The patient was started on IV heparin. The patient was started on nitroglycerin drip. Blood pressures under better control. Subsequently, the patient was also placed on a BiPAP at a pressure of 12/5 cm of water with an FiO2 of 50%. The current pulse ox is 97%. Most recent BP is 140/97 and a nitroglycerin is being titrated accordingly. He was given also Lasix. He is producing adequate amount of urine output. The chest x-ray showed coarse interstitial changes bilaterally. Most likely interstitial edema/CHF. On today's evaluation 09/07/2002, the patient is intubated on a mechanical ventilator. Note that after my initial evaluation, the patient's condition decompensated and the patient went into acute hypoxic respiratory failure and he was in significant amount of respiratory distress in the emergency department. Recommended intubation mechanical ventilation. The triple-lumen catheter was also inserted in the emergency. His chest x-ray was consistent with pulmonary edema. Following intubation, the patient was kept on propofol which is running at 40 mcg/kg/m. He remains on IV heparin. Troponins peaked at 27.7 consistent with an acute non-ST segment elevation myocardial infarction. Echocardiogram showed severe systolic heart failure and the patient has impaired left ventricular ejection fraction based on a limited echocardiogram and the ejection fraction was in the order of 20%. There was also mild mitral regurgitation and the right ventricular systolic pressure was around 51. This morning, the patient is quite stable on a mechanical ventilator. He is on assist control at the rate of 26 with a tidal volume of 450 and FiO2 of 40% with a PEEP of 5. His blood gases showed pH of 7.5 with a pCO2 of 29 and pO2 124 and this was on FiO2 of 50% and based on that FiO2 is up to 140. His chest x-ray still consistent with pulmonary edema. He remains on IV heparin. Is also on pressors were norepinephrine running at 0.08 microvascular kilogram per minute. He is also on Lasix drip at 5 mg an hour. His urine output is in order of 700 mL overnight. As such, the patient has not been diuresing aggressively. His creatinine is up to 1.4 consistent with an acute kidney injury with a BUN of 24. Sodium is at 135, the results was at 13 with a hemoglobin 12.4 and a platelet count of 260. Cardiology was made aware the patient is going to undergo a cardiac c atheterization with possibly an Impala insertion. Cardiac rhythm is sinus. The patient on aspirin. The patient on IV heparin. The patient is on Levemir insulin 10 units and he is also taken a slight scale insulin coverage. Condition is still critical. He remains in cardiogenic shock. He is post acute NSTEMI. Objective - Vital Signs Vital signs: Vital Signs Temp 98.7 F 09/08/22 08:51 Pulse 76 09/08/22 09:09 Resp 27 H 09/08/22 09:00 BP 93/63 09/08/22 09:00 Pulse Ox 97 09/08/22 09:00 FiO2 40 09/08/22 09:00 Intake & Output 09/07/22 09/08/22 09/08/22 18:59 06:59 18:59 Intake Total 115.117 911.736 451.342 Output Total 755 55 Balance 115.117 156.736 396.342 Weight 81.647 kg 84.4 kg Intake: IV 280 0.9 NS @ 10 ml/hr 80 Magnesium Sulfate-D5w Pmx 200 1 gm In Dextrose/Water 1 100ml.bag @ 100 mls/hr IVPB Q1H [facility] Rx#: [id number] Intake, IV Titration 115.117 631.736 401.342 Amount Furosemide 100 mg In 71.333 51.5 Sodium Chloride 0.9% 90 ml @ 5 MG/HR 5 mls/hr IV .Q20H [facility] Rx#:[id number] Heparin Sod,Pork in 0.45% 9.798 78.057 152.604 NaCl 25,000 unit In 0.45 % NaCl 1 250ml.bag @ 12 UNITS/KG/HR 9.798 mls/hr IV .Q24H [facility] Rx#: [id number] Nitroglycerin-D5w Pmx 50 1.40 mg In Dextrose/Water 1 250ml.bag @ 5 MCG/MIN 1.5 mls/hr IV .Q24H [facility] Rx#: [id number] Norepinephrine 4 mg In 260.162 57.238 Sodium Chloride 0.9% 250 ml @ 0.03 MCG/KG/MIN 9. 332 mls/hr IV .Q24H [facility] Rx#:[id number] Potassium Chloride 10 meq 100 In Water For Injection 1 100ml.bag @ 100 mls/hr IVPB Q1H [facility] Rx#: [id number] Sodium Chloride 0.9% 1, 40 000 ml @ 20 mls/hr IV . Q24H [facility] Rx#:[id number] propofoL 1,000 mg In 103.919 222.184 Empty Bag 1 bag @ 15 MCG/ KG/MIN 7.348 mls/hr IV . [id number] [facility] Rx#:[id number] Oral 0 Other 50 Output: Urine 755 55 Other: Voiding Method Indwelling Catheter Indwelling Catheter Indwelling Catheter ABP, PAP, CO, CI - Last Documented Arterial Blood Pressure 93/57 - Exam Patient is calm and comfortable on mechanical ventilator. He is on assist control mode. Intubated, and orotracheal and orogastric tube are in good loc ation the patient has a left IJ triple-lumen catheter in place. Head exam was generally normal. There was no scleral icterus or corneal arcus. Mucous membranes were moist. Neck was supple and without jugular venous distension, thyromegaly, or carotid bruits. Carotids were easily palpable bilaterally. There was no adenopathy. Lungs sounds are diminished bilaterally especially in the lung bases. The patient is also some limited crackles bilaterally. Heart sounds are distant, positive S1 and S2, slightly tachycardic. No significant murmurs appreciated. Abdominal exam revealed normal bowel sounds. The abdomen was soft, non-tender, and without masses, organomegaly, or appreciable enlargement of the abdominal aorta. Examination of the extremities revealed easily palpable radial, femoral and pe ken pulses. There was no cyanosis, clubbing or edema. Examination of the skin revealed no evidence of significant rashes, suspicious appearing nevi or other concerning lesions. Neurologically, the patient is sedated on propofol - Labs CBC & Chem 7: 09/08/22 04:00 09/08/22 04:00 Labs: Abnormal Lab Results - Last 24 Hours (Table) 09/07/22 09/07/22 09/07/22 Range/Units 09:37 09:37 09:37 WBC (3.8-10.6) k/uL RBC (4.30-5.90) m/uL Hgb (13.0-17.5) gm/dL Hct (39.0-53.0) % Neutrophils # (1.3-7.7) k/uL APTT 20.9 L (22.0-30.0) sec ABG pH (7.35-7.45) ABG pCO2 (35-45) mmHg ABG pO2 (83-108) mmHg ABG Total CO2 (19-24) mmol/L ABG O2 Saturation (94-97) % Sodium 135 L (137-145) mmol/L Carbon Dioxide 17 L (22-30) mmol/L BUN (9-20) mg/dL Creatinine (0.66-1.25) mg/dL Glucose 386 H (74-99) mg/dL POC Glucose (mg/dL) (70-110) mg/dL Hemoglobin A1c (<=6.0) % Plasma Lactic Acid Pieter 5.6 H* (0.7-2.0) mmol/L Calcium (8.4-10.2) mg/dL Magnesium (1.6-2.3) mg/dL Total Bilirubin 1.6 H (0.2-1.3) mg/dL AST 124 H (17-59) U/L ALT 55 H (4-49) U/L Troponin I (0.000-0.034) ng/mL Total Protein (6.3-8.2) g/dL Albumin (3.5-5.0) g/dL Triglycerides (0.00-149.00) mg/dL Cholesterol (0.00-200.00) mg/dL LDL Cholesterol, Calc (0.0-131.0) mg/dL VLDL Cholesterol, Calc (5.00-40.00) mg/dL 09/07/22 09/07/22 09/07/22 Range/Units 09:37 09:37 11:47 WBC (3.8-10.6) k/uL RBC (4.30-5.90) m/uL Hgb (13.0-17.5) gm/dL Hct (39.0-53.0) % Neutrophils # (1.3-7.7) k/uL APTT (22.0-30.0) sec ABG pH (7.35-7.45) ABG pCO2 (35-45) mmHg ABG pO2 (83-108) mmHg ABG Total CO2 (19-24) mmol/L ABG O2 Saturation (94-97) % Sodium (137-145) mmol/L Carbon Dioxide (22-30) mmol/L BUN (9-20) mg/dL Creatinine (0.66-1.25) mg/dL Glucose (74-99) mg/dL POC Glucose (mg/dL) (70-110) mg/dL Hemoglobin A1c 11.2 H (<=6.0) % Plasma Lactic Acid Pieter (0.7-2.0) mmol/L Calcium (8.4-10.2) mg/dL Magnesium (1.6-2.3) mg/dL Total Bilirubin (0.2-1.3) mg/dL AST (17-59) U/L ALT (4-49) U/L Troponin I 12.500 H* (0.000-0.034) ng/mL Total Protein (6.3-8.2) g/dL Albumin (3.5-5.0) g/dL Triglycerides 231.00 H (0.00-149.00) mg/dL Cholesterol 242.00 H (0.00-200.00) mg/dL LDL Cholesterol, Calc 148.2 H (0.0-131.0) mg/dL VLDL Cholesterol, Calc 46.20 H (5.00-40.00) mg/dL 09/07/22 09/07/22 09/07/22 Range/Units 12:33 12:45 14:50 WBC (3.8-10.6) k/uL RBC (4.30-5.90) m/uL Hgb (13.0-17.5) gm/dL Hct (39.0-53.0) % Neutrophils # (1.3-7.7) k/uL APTT (22.0-30.0) sec ABG pH (7.35-7.45) ABG pCO2 (35-45) mmHg ABG pO2 (83-108) mmHg ABG Total CO2 (19-24) mmol/L ABG O2 Saturation (94-97) % Sodium (137-145) mmol/L Carbon Dioxide (22-30) mmol/L BUN (9-20) mg/dL Creatinine (0.66-1.25) mg/dL Glucose (74-99) mg/dL POC Glucose (mg/dL) (70-110) mg/dL Hemoglobin A1c (<=6.0) % Plasma Lactic Acid Pieter 2.2 H* (0.7-2.0) mmol/L Calcium (8.4-10.2) mg/dL Magnesium (1.6-2.3) mg/dL Total Bilirubin (0.2-1.3) mg/dL AST (17-59) U/L ALT (4-49) U/L Troponin I 16.200 H* 18.700 H* (0.000-0.034) ng/mL Total Protein (6.3-8.2) g/dL Albumin (3.5-5.0) g/dL Triglycerides (0.00-149.00) mg/dL Cholesterol (0.00-200.00) mg/dL LDL Cholesterol, Calc (0.0-131.0) mg/dL VLDL Cholesterol, Calc (5.00-40.00) mg/dL 09/07/22 09/07/22 09/07/22 Range/Units 16:44 16:44 17:40 WBC 11.4 H (3.8-10.6) k/uL RBC (4.30-5.90) m/uL Hgb (13.0-17.5) gm/dL Hct (39.0-53.0) % Neutrophils # 9.6 H (1.3-7.7) k/uL APTT (22.0-30.0) sec ABG pH (7.35-7.45) ABG pCO2 (35-45) mmHg ABG pO2 (83-108) mmHg ABG Total CO2 (19-24) mmol/L ABG O2 Saturation (94-97) % Sodium (137-145) mmol/L Carbon Dioxide 21 L (22-30) mmol/L BUN (9-20) mg/dL Creatinine (0.66-1.25) mg/dL Glucose 360 H (74-99) mg/dL POC Glucose (mg/dL) 338 H (70-110) mg/dL Hemoglobin A1c (<=6.0) % Plasma Lactic Acid Pieter (0.7-2.0) mmol/L Calcium (8.4-10.2) mg/dL Magnesium (1.6-2.3) mg/dL Total Bilirubin (0.2-1.3) mg/dL AST (17-59) U/L ALT (4-49) U/L Troponin I (0.000-0.034) ng/mL Total Protein (6.3-8.2) g/dL Albumin (3.5-5.0) g/dL Triglycerides (0.00-149.00) mg/dL Cholesterol (0.00-200.00) mg/dL LDL Cholesterol, Calc (0.0-131.0) mg/dL VLDL Cholesterol, Calc (5.00-40.00) mg/dL 09/07/22 09/07/22 09/07/22 Range/Units 17:42 17:49 18:05 WBC (3.8-10.6) k/uL RBC (4.30-5.90) m/uL Hgb (13.0-17.5) gm/dL Hct (39.0-53.0) % Neutrophils # (1.3-7.7) k/uL APTT 37.7 H (22.0-30.0) sec ABG pH 7.32 L (7.35-7.45) ABG pCO2 46 H (35-45) mmHg ABG pO2 (83-108) mmHg ABG Total CO2 25 H (19-24) mmol/L ABG O2 Saturation 97.7 H (94-97) % Sodium (137-145) mmol/L Carbon Dioxide (22-30) mmol/L BUN (9-20) mg/dL Creatinine (0.66-1.25) mg/dL Glucose (74-99) mg/dL POC Glucose (mg/dL) (70-110) mg/dL Hemoglobin A1c (<=6.0) % Plasma Lactic Acid Pieter (0.7-2.0) mmol/L Calcium (8.4-10.2) mg/dL Magnesium (1.6-2.3) mg/dL Total Bilirubin (0.2-1.3) mg/dL AST (17-59) U/L ALT (4-49) U/L Troponin I 16.300 H* (0.000-0.034) ng/mL Total Protein (6.3-8.2) g/dL Albumin (3.5-5.0) g/dL Triglycerides (0.00-149.00) mg/dL Cholesterol (0.00-200.00) mg/dL LDL Cholesterol, Calc (0.0-131.0) mg/dL VLDL Cholesterol, Calc (5.00-40.00) mg/dL 09/07/22 09/07/22 09/08/22 Range/Units 20:30 23:58 00:10 WBC (3.8-10.6) k/uL RBC (4.30-5.90) m/uL Hgb (13.0-17.5) gm/dL Hct (39.0-53.0) % Neutrophils # (1.3-7.7) k/uL APTT 76.9 H (22.0-30.0) sec ABG pH (7.35-7.45) ABG pCO2 (35-45) mmHg ABG pO2 (83-108) mmHg ABG Total CO2 (19-24) mmol/L ABG O2 Saturation (94-97) % Sodium (137-145) mmol/L Carbon Dioxide (22-30) mmol/L BUN (9-20) mg/dL Creatinine (0.66-1.25) mg/dL Glucose (74-99) mg/dL POC Glucose (mg/dL) 365 H 334 H (70-110) mg/dL Hemoglobin A1c (<=6.0) % Plasma Lactic Acid Pieter (0.7-2.0) mmol/L Calcium (8.4-10.2) mg/dL Magnesium (1.6-2.3) mg/dL Total Bilirubin (0.2-1.3) mg/dL AST (17-59) U/L ALT (4-49) U/L Troponin I (0.000-0.034) ng/mL Total Protein (6.3-8.2) g/dL Albumin (3.5-5.0) g/dL Triglycerides (0.00-149.00) mg/dL Cholesterol (0.00-200.00) mg/dL LDL Cholesterol, Calc (0.0-131.0) mg/dL VLDL Cholesterol, Calc (5.00-40.00) mg/dL 09/08/22 09/08/22 09/08/22 Range/Units 01:35 04:00 04:00 WBC 13.0 H (3.8-10.6) k/uL RBC 4.17 L (4.30-5.90) m/uL Hgb 12.4 L (13.0-17.5) gm/dL Hct 37.4 L (39.0-53.0) % Neutrophils # 9.5 H (1.3-7.7) k/uL APTT (22.0-30.0) sec ABG pH (7.35-7.45) ABG pCO2 (35-45) mmHg ABG pO2 (83-108) mmHg ABG Total CO2 (19-24) mmol/L ABG O2 Saturation (94-97) % Sodium (137-145) mmol/L Carbon Dioxide (22-30) mmol/L BUN (9-20) mg/dL Creatinine (0.66-1.25) mg/dL Glucose (74-99) mg/dL POC Glucose (mg/dL) (70-110) mg/dL Hemoglobin A1c 11.1 H (<=6.0) % Plasma Lactic Acid Pieter (0.7-2.0) mmol/L Calcium (8.4-10.2) mg/dL Magnesium (1.6-2.3) mg/dL Total Bilirubin (0.2-1.3) mg/dL AST (17-59) U/L ALT (4-49) U/L Troponin I 27.700 H* (0.000-0.034) ng/mL Total Protein (6.3-8.2) g/dL Albumin (3.5-5.0) g/dL Triglycerides (0.00-149.00) mg/dL Cholesterol (0.00-200.00) mg/dL LDL Cholesterol, Calc (0.0-131.0) mg/dL VLDL Cholesterol, Calc (5.00-40.00) mg/dL 09/08/22 09/08/22 09/08/22 Range/Units 04:00 04:00 04:00 WBC (3.8-10.6) k/uL RBC (4.30-5.90) m/uL Hgb (13.0-17.5) gm/dL Hct (39.0-53.0) % Neutrophils # (1.3-7.7) k/uL APTT 67.8 H (22.0-30.0) sec ABG pH (7.35-7.45) ABG pCO2 (35-45) mmHg ABG pO2 (83-108) mmHg ABG Total CO2 (19-24) mmol/L ABG O2 Saturation (94-97) % Sodium 135 L (137-145) mmol/L Carbon Dioxide (22-30) mmol/L BUN 23 H (9-20) mg/dL Creatinine 1.43 H (0.66-1.25) mg/dL Glucose 340 H (74-99) mg/dL POC Glucose (mg/dL) (70-110) mg/dL Hemoglobin A1c (<=6.0) % Plasma Lactic Acid Pieter (0.7-2.0) mmol/L Calcium 8.2 L (8.4-10.2) mg/dL Magnesium 2.4 H (1.6-2.3) mg/dL Total Bilirubin (0.2-1.3) mg/dL AST 92 H (17-59) U/L ALT (4-49) U/L Troponin I 27.800 H* (0.000-0.034) ng/mL Total Protein 6.1 L (6.3-8.2) g/dL Albumin 3.2 L (3.5-5.0) g/dL Triglycerides (0.00-149.00) mg/dL Cholesterol (0.00-200.00) mg/dL LDL Cholesterol, Calc (0.0-131.0) mg/dL VLDL Cholesterol, Calc (5.00-40.00) mg/dL 09/08/22 Range/Units 05:45 WBC (3.8-10.6) k/uL RBC (4.30-5.90) m/uL Hgb (13.0-17.5) gm/dL Hct (39.0-53.0) % Neutrophils # (1.3-7.7) k/uL APTT (22.0-30.0) sec ABG pH 7.50 H (7.35-7.45) ABG pCO2 29 L (35-45) mmHg ABG pO2 124 H (83-108) mmHg ABG Total CO2 (19-24) mmol/L ABG O2 Saturation 99.0 H (94-97) % Sodium (137-145) mmol/L Carbon Dioxide (22-30) mmol/L BUN (9-20) mg/dL Creatinine (0.66-1.25) mg/dL Glucose (74-99) mg/dL POC Glucose (mg/dL) (70-110) mg/dL Hemoglobin A1c (<=6.0) % Plasma Lactic Acid Pieter (0.7-2.0) mmol/L Calcium (8.4-10.2) mg/dL Magnesium (1.6-2.3) mg/dL Total Bilirubin (0.2-1.3) mg/dL AST (17-59) U/L ALT (4-49) U/L Troponin I (0.000-0.034) ng/mL Total Protein (6.3-8.2) g/dL Albumin (3.5-5.0) g/dL Triglycerides (0.00-149.00) mg/dL Cholesterol (0.00-200.00) mg/dL LDL Cholesterol, Calc (0.0-131.0) mg/dL VLDL Cholesterol, Calc (5.00-40.00) mg/dL Assessment and Plan Plan: Acute non-ST segment elevation myocardial infarction, troponin peaked at 27 and the patient is currently on IV heparin, aspirin and the patient is also on pressors for hemodynamic support. The patient is to be taken to the computer lab para professional for cardiac catheterization, possibly Impala, possibly further intervention based on the findings. Acute cardiogenic shock/pulmonary edema. The patient is currently on low-dose pressors, echocardiogram showing a systolic heart failure with ejection fraction of 20% Hypertension Acute hypoxic respiratory failure secondary to above the patient is currently intubated on a mechanical ventilator Acute kidney injury related to cardiorenal factors. The patient is currently on Lasix drip 5 mg an hour Known history of coronary artery disease with previous coronary stenting many years back Acute lactic acidosis Plan Continue ventilator support Dropped respiratory down to 20 and FiO2 down to 40% Keep the patient sedated on propofol Keep the patient on propofol Continue aspirin Continue IV heparin Continue Lasix drip Echocardiogram was noted The patient will need emergent cardiac catheterization and further evaluation and treatment to with his LV function Continue statins Continue Levemir insulin Condition is critical and cardiology is on the case. The plan is cardiac catheterization today Condition is critical evaluation was done in more than 30 minutes Time with Patient: Greater than 30
[2022-09-08 11:58] LABS: Glucose,Whole Blood 274 mg/dL (70-110)
[2022-09-08] MEDS ORDERED: HEPARIN SODIUM 1,000 UN/ML (10ML VL) ONE ×2 (12:58→13:57)
[2022-09-08] MEDS ORDERED: VERAPAMIL 2.5 MG/ML 2 ML AMP ONE (12:59)
[2022-09-08] MEDS ORDERED: LIDOCAINE 1% INJ 10MG/ML (20 ML MDV) ONE (13:00)
[2022-09-08] MEDS ORDERED: LIDOCAINE 1% INJ 10MG/ML (30 ML VIAL-PF) SQ ONE (13:42)
[2022-09-08] MEDS ORDERED: HEPARIN SODIUM 1,000 UN/ML (10ML VL) IV ONE (14:05)
[2022-09-08] MEDS ORDERED: RX INFO: IV CONTRAST WAS GIVEN 1 EACH MISC MISCELLANE PRN (14:13)
[2022-09-08] MEDS ORDERED: SODIUM CHLORIDE 0.9% 1,000 ML IV SCH (14:15)
[2022-09-08] MEDS ORDERED: IOPAMIDOL-370 100ML BTL INJ ONE (14:34)
--- NOTE | 2022-09-08 15:32 | CA ---
Transthoracic Echo Report Name: Neo Roberts Age: 67 Gender: M : 1955 Exam Date: 09/08/2022 14:40 Exam Location: [facility] [facility] Ht (in): 72 Wt (lb): 186 Ordering Physician: Mahendra Terry MD ([id number]) Attending/Referring Phys: Plumbing Technician Lakisha Colvin RDCS Procedure CPT: Indications: s/p impella Cardiac Hx: impella Technical Quality: Fair Contrast 1: Total Dose (mL): Contrast 2: Total Dose (mL): MEASUREMENTS (Male / Female) Normal Values FINDINGS Left Ventricle Left ventricular ejection fraction is estimated at less than 20 %. Severely reduced global left ventricular systolic function. Impella catheter in LVOT track Right Ventricle Right Atrium Left Atrium Mitral Valve Aortic Valve Tricuspid Valve Pulmonic Valve Pericardium Normal pericardium. No pericardial effusion. Aorta CONCLUSIONS Severe LV systolic dysfunction Normally positioned impella catheter Previewed by: Dr. David Prince MD (Electronically Signed) Final Date: 08 September 2022 15:31
[2022-09-08] MEDS: SODIUM BICARB (1 MEQ/ML) 12.5 ML in DEXTROSE 5% IN WATER 500 ML IV SCH ×2 (16:54)
[2022-09-08 18:16] LABS: Glucose,Whole Blood 246 mg/dL (70-110)
--- NOTE | 2022-09-08 20:29 | P.PCN ---
Date of Procedure: 09/08/22 Operative Findings: Cardiac catheterization and placement of Impella CP in the LV Performing physician Mahendra Terry MD Procedure performed 1. Selective right and left coronary angiogram 2. Left heart catheterization 3. Successful placement of Impella CP in the left ventricle 4. Selective right common femoral artery angiogram 5. Ultrasound guided access of the right common femoral artery Indication This is a 67-year-old gentleman with coronary artery disease as well as hypertension and dyslipidemia and multiple comorbid conditions was admitted to the hospital with acute non-ST elevation myocardial infarction and developed cardiogenic shock. He underwent further investigation including an echo and that revealed severe cardiomyopathy. Complications None Level of sedation Moderate with sedation at length of 42 minutes Procedure description After obtaining an informed consent the patient was brought to the cardiac Electromechanical Engineer. The right common femoral artery was cannulated using micropuncture technique under ultrasound guidance, the micropuncture wire passed easily within I did selective right common femoral artery angiogram with injection through the micropuncture sheath. That showed good position of the sheath in the middle of the right common femoral artery. Subsequently I did exchange my micropuncture sheet overall 3 5 wire into a 6 Slovak 11 cm sheath. At that point I did left heart catheterization using 6 Slovak pigtail catheter then I did selective right and left coronary angiogram using JR4 and JL4 catheters before I proceeded with placement of the Impella CP in the left ventricle. Procedure was completed with no complication Selective coronary angiogram The RCA is a large caliber vessel and a dominant vessel. The RCA is diffusely diseased up to about 99% in the proximal portion and 99% of the distal portion be distally after that bifurcates into PDA and PLV branches. Both are to be diffusely diseased. Collateral from the right to the left coronary system identified. The left main is calcified with mild disease only. Bifurcates into and LCx and LAD The left circumflex Is a large caliber vessel and nondominant vessel. The left circumflex is extremely calcified. Proximally there to have severe lesion in the range of 80% just distal to the bifurcation of a large OM. The circumflex after that if stress is 10 him to which also appeared to have severe ostial lesion. The left anterior descending artery is a large caliber vessel. The LAD has tubular lesion in the proximal portion appeared to be in the range of 99.9%. Give stress into a large diagonal branch which has also proximal lesion in the range of 80-90%. Hemodynamic The LVEDP was 30-32 mmHg with no significant gradient across the aortic valve Placement of Impella CP in the LV After assuring that the entry of the 6 Slovak sheath was in appropriate position at the right common femoral artery and after finding out the severely elevated left-sided filling pressure we decided to pursue with placement of Impella to unload the left ventricle. At that point and overall 3 5 wire and after pulling out the 60 Slovak 11 cm sheath I deployed it two Perclose devices successfully and subsequently overall 3 5 wire I placed an 8 Slovak sheath. After that I did predilated the right common femoral artery initially using 10 Slovak and then 12 Slovak dilator before I placed 14 Slovak sheath. Anticoagulation at that point was initiated using heparin with continuous ACT monitoring. Please note that placement of the 14 Slovak sheath was performed over a stiff 035 wire. At that point I did exchange the stiff 035 wire over catheter into a regular 035 wire before I did across the aortic valve using a J035 wire with a pigtail catheter. Then I pulled the 035 wire and I placed the 018 wire through the pigtail catheter and the pigtail catheter was pulled out. At that point and under fluoroscopy guidance I advanced the Impella CP catheter to the LV over the 018 wire under fluoroscopy guidance then the wire was pulled out and the Impella was connected. Subsequently I did selective right common femoral angiogram with injection through the 14 Slovak sheath to assess that there is blood flow to the right common femoral artery and there was flow to the right common femoral artery and the sheath was not totally occluding the common femoral artery. At that point the procedure was completed with no complication Occlusion 1. Extremely calcified right and left coronary system 2. Critical triple-vessel coronary artery disease as described above 3. Extremely elevated left-sided filling pressure 4. Successful placement of Impella CP in the LV Postprocedure management 1. Continue monitoring the patient's hemodynamic 2. Try to wean the patient from norepinephrine/vasopressors 3. Monitor the arterial duplex signal in the right foot 4. Coronary revascularization 5. Continue IV heparin
[2022-09-08 23:50] LABS: Glucose,Whole Blood 213 mg/dL (70-110)
[2022-09-09 01:31] LABS: African American GFR (CKD) 77 (>60 ml/min/1.73 sqM); Anion Gap 8 mmol/L; Blood Urea Nitrogen 25 mg/dL (9-20); Calcium 7.5 mg/dL (8.4-10.2); Carbon Dioxide 20 mmol/L (22-30); Chloride 106 mmol/L (98-107); Glucose 226 mg/dL (74-99); Non-African American GFR(CKD) 67 (>60 ml/min/1.73 sqM); Sodium 134 mmol/L (137-145)
[2022-09-09 01:34] LABS: Potassium 3.1 mmol/L (3.5-5.1)
[2022-09-09] MEDS: POTASSIUM CHLORIDE 20 MEQ in WATER FOR INJECTION 1 100ML.BAG IVPB SCH ×3 (03:30→08:33)
[2022-09-09 04:15] LABS: Basophils % (A) 0 %; Eosinophils # (A) 0.1 k/uL (0-0.7); Eosinophils % (A) 1 %; HCT 35.5 % (39.0-53.0); HGB 11.9 gm/dL (13.0-17.5); Lymphocytes # (A) 1.4 k/uL (1.0-4.8); Lymphocytes % (A) 18 %; MCHC 33.6 g/dL (31.0-37.0); MCV 89.4 fL (80.0-100.0); Mean Platelet Volume 9.8; Monocytes # (A) 0.5 k/uL (0-1.0); Monocytes % (A) 6 %; Neutrophils # (A) 6.1 k/uL (1.3-7.7); Neutrophils % (A) 75 %; Platelet Count 192 k/uL (150-450); RBC 3.97 m/uL (4.30-5.90); RDW 14.9 % (11.5-15.5); WBC 8.1 k/uL (3.8-10.6)
[2022-09-09] MEDS: HEPARIN SODIUM 1,000 UN/ML (10ML VL) IV PRN (04:18)
[2022-09-09] MEDS: IPRATROPIUM-ALBUTEROL 3 ML NEB INHALATION SCH ×5 (04:26→20:14)
[2022-09-09 06:05] LABS: Glucose,Whole Blood 233 mg/dL (70-110)
[2022-09-09] MEDS: INSULIN ASPART (NovoLOG) 100 UNIT/ML VIAL SQ SCH ×4 (06:05→23:34)
[2022-09-09] MEDS: INSULIN DETEMIR (LEVEMIR) 100 UNIT/ML SYR SQ SCH (06:09)
[2022-09-09 06:36] LABS: Allen Test Performed? Yes
[2022-09-09 06:37] LABS: ABG Base Excess -0.6 mmol/L; ABG HCO3 23 mmol/L (21-25); ABG Oxygen Saturation 99.3 % (94-97); ABG PCO2 30 mmHg (35-45); ABG PH 7.49 (7.35-7.45); ABG PO2 130 mmHg (83-108); ABG TCO2 24 mmol/L (19-24)
[2022-09-09] MEDS: HEPARIN SOD,PORK IN 0.45% NACL 25,000 UNIT in 0.45% NACL 1 250ML.BAG IV SCH (07:15)
--- NOTE | 2022-09-09 07:21 | XR ---
EXAMINATION TYPE: XR chest 1V portable DATE OF EXAM: 09/09/2022 COMPARISON: 09/08/2022 HISTORY: LVAD placement. Perform with HOB at 0 degrees. FINDINGS: Indwelling tubes and catheters are unchanged. Left ventricular catheter is noted. Exam is limited as the base of the left chest is cut off the [id number]. Left basilar opacity may reflect atelectasis or underlying infiltrate. Stable appearance of the cardio-mediastinal structures at this time. Pleural effusion unchanged. IMPRESSION: 1. Stable portable chest. Clinical correlation and follow up until resolution is recommended. 2. Left ventricular catheter is noted. Exam is limited as the base of the left chest is cut off the f [id number].
[2022-09-09] MEDS ORDERED: SODIUM CHLORIDE 0.9% 500 ML 250 ML IV ONE (08:05)
[2022-09-09] MEDS: CHLORHEXIDINE GLUCONATE 15 ML CUP MUCOUS MEM SCH ×2 (08:33→20:21)
[2022-09-09] MEDS: ATORVASTATIN 40 MG TAB PO SCH (08:33)
[2022-09-09] MEDS: ASPIRIN 81 MG PO SCH (08:33)
[2022-09-09] MEDS: FAMOTIDINE 20 MG/2 ML VIAL IV SCH ×2 (08:33→20:21)
--- NOTE | 2022-09-09 10:12 | P.PN ---
Subjective Progress Note Date: 09/09/22 A 67-year-old male patient, came into the emergency department because of worsening shortness of breath. The patient lives in [facility] and he has a primary care physician out of [facility]. The patient was visiting here in [place] and became progressively more short of breath. No significant cough or sputum production. No hemoptysis. No pleurisy. No angina. No palpitations. He is known to have CAD and he has undergone stenting many years back and she is not seeing a web developer programmer on a regular basis. He is known to have hypertension. He is an ex-smoker. In the emergency, the patient was found to be hypertensive and he was diagnosed having an acute hypertensive emergency with secondary pulmonary edema. EKG showed some nonspecific ST segment changes in the lateral leads and anteroseptal Q waves. The cardiac rhythm was sinus. The chest x-ray was consistent with pulmonary edema. The patient's initial troponin came back at 12.5. His lactic acid level was at 5.6. ProBNP level was 2930. There was done was 12.8 with hemoglobin 14.3 and a platelet count of 276. The patient was started on IV heparin. The patient was started on nitroglycerin drip. Blood pressures under better control. Subsequently, the patient was also placed on a BiPAP at a pressure of 12/5 cm of water with an FiO2 of 50%. The current pulse ox is 97%. Most recent BP is 140/97 and a nitroglycerin is being titrated accordingly. He was given also Lasix. He is producing adequate amount of urine output. The chest x-ray showed coarse interstitial changes bilaterally. Most likely interstitial edema/CHF. On today's evaluation 09/07/2002, the patient is intubated on a mechanical ventilator. Note that after my initial evaluation, the patient's condition decompensated and the patient went into acute hypoxic respiratory failure and he was in significant amount of respiratory distress in the emergency department. Recommended intubation mechanical ventilation. The triple-lumen catheter was also inserted in the emergency. His chest x-ray was consistent with pulmonary edema. Following intubation, the patient was kept on propofol which is running at 40 mcg/kg/m. He remains on IV heparin. Troponins peaked at 27.7 consistent with an acute non-ST segment elevation myocardial infarction. Echocardiogram showed severe systolic heart failure and the patient has impaired left ventricular ejection fraction based on a limited echocardiogram and the ejection fraction was in the order of 20%. There was also mild mitral regurgitation and the right ventricular systolic pressure was around 51. This morning, the patient is quite stable on a mechanical ventilator. He is on assist control at the rate of 26 with a tidal volume of 450 and FiO2 of 40% with a PEEP of 5. His blood gases showed pH of 7.5 with a pCO2 of 29 and pO2 124 and this was on FiO2 of 50% and based on that FiO2 is up to 140. His chest x-ray still consistent with pulmonary edema. He remains on IV heparin. Is also on pressors were norepinephrine running at 0.08 microvascular kilogram per minute. He is also on Lasix drip at 5 mg an hour. His urine output is in order of 700 mL overnight. As such, the patient has not been diuresing aggressively. His creatinine is up to 1.4 consistent with an acute kidney injury with a BUN of 24. Sodium is at 135, the results was at 13 with a hemoglobin 12.4 and a platelet count of 260. Cardiology was made aware the patient is going to undergo a cardiac c atheterization with possibly an Impala insertion. Cardiac rhythm is sinus. The patient on aspirin. The patient on IV heparin. The patient is on Levemir insulin 10 units and he is also taken a slight scale insulin coverage. Condition is still critical. He remains in cardiogenic shock. He is post acute NSTEMI. On today's evaluation of 09/09/2022, the patient remains intubated on a mechanical ventilator. The patient was taken to the laboratory inspector yesterday and cardiac catheterization was done. The patient had significant elevation of the left ventricular end-diastolic pressure which was in the order of 30 mmHg. The patient was also found to have severe triple-vessel disease. RCA was diffusely diseased in order of 99% in the proximal portion, there was also 99% distal portion occlusion, the LAD was of a large caliber and it had a lesion in the proximal portion in order of 99%, there was a large diagonal branch that had a proximal lesion of 80-90%, th circumflex also had an 80% lesion. The patient was in Impella which is currently at the AP 6 flow at 2.7 L/m. His urine output is improved. His creatinine is improved. In fact, his creatinine is down to 1.4 with a BUN of 25. I was told by the web developer programmer that immediately after the insertion of the device, his left and end-diastolic pressures dropped. The plan is to unload the LV at this point in time. The patient remains on a mechanical ventilator, assist control of 26, tidal volume of 450, FiO2 of 40% with a PEEP of 5. Blood gas from this morning shows a pH of 7.49 with a pCO2 of 30 and pO2 of 130. Chest x-ray still showing evidence of CHF and pulmonary edema. There is evidence of left lower lobe atelectasis and bilateral pleural effusions slightly worse on the left. He is out of is currently at 8.1 with a hemoglobin of 11.9 and platelet count of 192. The patient is on IV heparin. The patient on aspirin. The patient is also requiring pressors and norepinephrine is running at 0.03 mcg/kg/m. He has a left IJ triple-lumen catheter in place. He'll be started on enteral feeding for nutritional support. Is on Lasix drip at 5 mg an hour. Objective - Vital Signs Vital signs: Vital Signs Temp 99.0 F 09/09/22 08:00 Pulse 78 09/09/22 09:00 Resp 26 H 09/09/22 09:00 BP 104/62 09/09/22 09:00 Pulse Ox 99 09/09/22 09:00 FiO2 40 09/09/22 08:00 Intake & Output 09/08/22 09/09/22 09/09/22 18:59 06:59 18:59 Intake Total 6314.731 5808.093 487.918 Output Total 860 1000 260 Balance 323.957 656.093 227.918 Weight 84.4 kg 85.1 kg Intake: IV 309 1122 443 0.9 NS @ 10 ml/hr 60 Potassium Chloride 20 meq 150 100 In Water For Injection 1 100ml.bag @ 50 mls/hr IVPB Q2H [facility] Rx#: [id number] Sodium Chloride 0.9% 1, 225 900 75 000 ml @ 75 mls/hr IV . [id number] [facility] Rx#:[id number] Sodium Chloride 0.9% 500 250 ml 250 ml @ 250 mls/hr IV .Q1H [facility] Rx#:[id number] pressure bag 24 72 18 Intake, IV Titration 824.957 534.093 44.918 Amount Furosemide 100 mg In 99.417 Sodium Chloride 0.9% 90 ml @ 5 MG/HR 5 mls/hr IV .Q20H [facility] Rx#:[id number] Heparin Sod,Pork in 0.45% 152.604 186.552 31.488 NaCl 25,000 unit In 0.45 % NaCl 1 250ml.bag @ 12 UNITS/KG/HR 9.798 mls/hr IV .Q24H [facility] Rx#: [id number] Norepinephrine 4 mg In 292.936 68.284 13.430 Sodium Chloride 0.9% 250 ml @ 0.03 MCG/KG/MIN 9. 332 mls/hr IV .Q24H [facility] Rx#:[id number] Potassium Chloride 10 meq 100 In Water For Injection 1 100ml.bag @ 100 mls/hr IVPB Q1H [facility] Rx#: [id number] Sodium Chloride 0.9% 1, 80 000 ml @ 20 mls/hr IV . Q24H [facility] Rx#:[id number] propofoL 1,000 mg In 100 279.257 Empty Bag 1 bag @ 15 MCG/ KG/MIN 7.348 mls/hr IV . [id number] [facility] Rx#:[id number] Oral 0 Other 50 Output: Urine 860 1000 260 Other: Voiding Method Indwelling Catheter Indwelling Catheter ABP, PAP, CO, CI - Last Documented Arterial Blood Pressure 81/59 - Exam Patient is calm and comfortable on mechanical ventilator. He is on assist control mode. Intubated, and orotracheal and orogastric tube are in good location the patient has a left IJ triple-lumen catheter in place. The patient is adequately sedated with propofol running at a dose of 50 mcg/kg/m and is quite successful mechanical ventilator Head exam was generally normal. There was no scleral icterus or corneal arcus. Mucous membranes were moist. Neck was supple and without jugular venous distension, thyromegaly, or carotid bruits. Carotids were easily palpable bilaterally. There was no adenopathy. The patient has a left IJ triple-lumen catheter Lungs sounds are diminished bilaterally especially in the lung bases. The patient is also some limited crackles bilaterally. Heart sounds are distant, positive S1 and S2, slightly tachycardic. No significant murmurs appreciated. Abdominal exam revealed normal bowel sounds. The abdomen was soft, non-tender, and without masses, organomegaly, or appreciable enlargement of the abdominal aorta. Examination of the extremities revealed easily palpable radial, femoral and pedal pulses. There was no cyanosis, clubbing or edema. Examination of the skin revealed no evidence of significant rashes, suspicious appearing nevi or other concerning lesions. The Impella catheter is currently in place Neurologically, the patient is sedated on propofol - Labs CBC & Chem 7: 09/09/22 04:05 09/09/22 01:40 Labs: Abnormal Lab Results - Last 24 Hours (Table) 09/08/22 09/08/22 09/08/22 Range/Units 11:57 17:15 18:16 RBC (4.30-5.90) m/uL Hgb (13.0-17.5) gm/dL Hct (39.0-53.0) % APTT 183.3 H* (22.0-30.0) sec ABG pH (7.35-7.45) ABG pCO2 (35-45) mmHg ABG pO2 (83-108) mmHg ABG O2 Saturation (94-97) % Sodium (137-145) mmol/L Potassium (3.5-5.1) mmol/L Carbon Dioxide (22-30) mmol/L BUN (9-20) mg/dL Glucose (74-99) mg/dL POC Glucose (mg/dL) 274 H 246 H (70-110) mg/dL Calcium (8.4-10.2) mg/dL 09/08/22 09/09/22 09/09/22 Range/Units 23:48 00:41 01:40 RBC (4.30-5.90) m/uL Hgb (13.0-17.5) gm/dL Hct (39.0-53.0) % APTT (22.0-30.0) sec ABG pH (7.35-7.45) ABG pCO2 (35-45) mmHg ABG pO2 (83-108) mmHg ABG O2 Saturation (94-97) % Sodium 134 L (137-145) mmol/L Potassium 3.1 L 3.1 L (3.5-5.1) mmol/L Carbon Dioxide 20 L (22-30) mmol/L BUN 25 H (9-20) mg/dL Glucose 226 H (74-99) mg/dL POC Glucose (mg/dL) 213 H (70-110) mg/dL Calcium 7.5 L (8.4-10.2) mg/dL 09/09/22 09/09/22 09/09/22 Range/Units 02:55 04:05 06:03 RBC 3.97 L (4.30-5.90) m/uL Hgb 11.9 L (13.0-17.5) gm/dL Hct 35.5 L (39.0-53.0) % APTT 41.5 H (22.0-30.0) sec ABG pH (7.35-7.45) ABG pCO2 (35-45) mmHg ABG pO2 (83-108) mmHg ABG O2 Saturation (94-97) % Sodium (137-145) mmol/L Potassium (3.5-5.1) mmol/L Carbon Dioxide (22-30) mmol/L BUN (9-20) mg/dL Glucose (74-99) mg/dL POC Glucose (mg/dL) 233 H (70-110) mg/dL Calcium (8.4-10.2) mg/dL 09/09/22 09/09/22 Range/Units 06:35 09:24 RBC (4.30-5.90) m/uL Hgb (13.0-17.5) gm/dL Hct (39.0-53.0) % APTT 49.1 H (22.0-30.0) sec ABG pH 7.49 H (7.35-7.45) ABG pCO2 30 L (35-45) mmHg ABG pO2 130 H (83-108) mmHg ABG O2 Saturation 99.3 H (94-97) % Sodium (137-145) mmol/L Potassium (3.5-5.1) mmol/L Carbon Dioxide (22-30) mmol/L BUN (9-20) mg/dL Glucose (74-99) mg/dL POC Glucose (mg/dL) (70-110) mg/dL Calcium (8.4-10.2) mg/dL Assessment and Plan Plan: Acute non-ST segment elevation myocardial infarction, troponin peaked at 27 and the patient is currently on IV heparin, aspirin and the patient is also on pressors for hemodynamic support. The patient is to be taken to the laboratory inspector for cardiac catheterization, and the patient was found to have severe triple- vessel disease and the patient was in cardiogenic shock with elevated lipids of end-diastolic pressure of 30 mmHg. He was given Impella she is currently at P6 altered mentation. He remains on aspirin and heparin. Hemodynamically, he is still hypotensive requiring low-dose norepinephrine infusion for blood pressure control. Is also on Lasix drip at 5 mg an hour. Acute cardiogenic shock/pulmonary edema. The patient is currently on low-dose pressors, echocardiogram showing a systolic heart failure with ejection fraction of 20%, the patient is post non-ST segment elevation myocardial infarction with diffuse triple-vessel coronary artery disease currently on Lasix drip and Imp janet Hypertension, history of Acute hypoxic respiratory failure secondary to above the patient is currently intubated on a mechanical ventilator, blood gases were noted Acute kidney injury related to cardiorenal factors. The patient is currently on Lasix drip 5 mg an hour, renal function is improved as the patient got augmented cardiac output with Impella Known history of coronary artery disease with previous coronary stenting many years back Acute lactic acidosis Plan Continue ventilator support Dropped respiratory down to 20 and FiO2 down to 40% Keep the patient sedated on propofol Keep the patient on propofol Continue aspirin Continue IV heparin Continue Lasix drip Initiate enteral feeding for nutritional support Continue Impella for cardiac support Echocardiogram was noted The patient will need revascularization. I discussed the case with cardiology. We are looking into unloading his left ventricular and subsequently taken the patient back to the [facility] for possible stenting of the LAD Continue statins Continue Levemir insulin Condition is critical and cardiology is on the case. Condition is critical evaluation was done in more than 30 minutes Time with Patient: Greater than 30
[2022-09-09 10:31] LABS: Sodium 134 mmol/L (137-145)
[2022-09-09 10:34] LABS: African American GFR (CKD) 79 (>60 ml/min/1.73 sqM); Anion Gap 5 mmol/L; Blood Urea Nitrogen 24 mg/dL (9-20); Calcium 7.1 mg/dL (8.4-10.2); Carbon Dioxide 22 mmol/L (22-30); Chloride 107 mmol/L (98-107); Glucose 217 mg/dL (74-99); Non-African American GFR(CKD) 68 (>60 ml/min/1.73 sqM); Potassium 3.6 mmol/L (3.5-5.1)
--- NOTE | 2022-09-09 11:00 | P.PN ---
Subjective Progress Note Date: 09/09/22 The patient is a 67-year-old male who is currently admitted with hypertensive emergency and non-ST elevated myocardial infarction. Over the last 24 hours the patient has subsequently been intubated and is sedated in the ICU. He has on a small amount of Levophed as well as a Lasix drip. Troponins have peaked at 27. Echocardiogram revealed severely reduced LV function at 20-25%. The patient underwent coronary angiogram and Impella placement yesterday with Dr Terry. Angiogram revealed extremely calcified right and left coronary systems with 99% occlusions in the RCA, 80% in proximal left circumflex, 99% tubular lesion in the mid LAD, and he denies any percent in first diagonal GENERAL: Ill-appearing, well-nourished and in no acute distress. Sedated on propofol NECK: Supple without JVD or thyromegaly. LUNGS: Breath sounds diminished to auscultation bilaterally. Respiration equal and unlabored. Bilateral rhonchi. HEART: Regular rate and rhythm without murmurs, rubs or gallops. S1 and S2 he simona. EXTREMITIES: Normal range of motion, no edema. No clubbing or cyanosis. Peripheral pulses intact and strong. Impella in place TELEMETRY: Sinus rhythm overnight. No arrhythmias. LABS: WBC 8.1, hemoglobin 11.9, hematocrit 35.5, platelet 192, sodium 134, potassium 3.6, BUN 24, creatinine 1.01, hemoglobin A1c 11.2, triglycerides 231, LDL 148, HDL 47 IMPRESSION: Non-ST elevated myocardial infarction Cardiogenic shock Severe triple-vessel coronary artery disease Ischemic cardiomyopathy, EF 20-25% Pulmonary edema Acute hypoxic respiratory failure History of coronary artery disease History of diabetes Hypokalemia PLAN: Discontinue Lasix drip Start IV push furosemide and oral Aldactone Patient to undergo PCI today with Dr. Clinton Prognosis is guarded. Further recommendations to be based on clinical course. I am dictating on behalf of Dr Wolf Alicea's history/physical and assessment/ plan. Objective - Vital Signs Vital signs: Vital Signs Temp 99.0 F 09/09/22 08:00 Pulse 78 09/09/22 09:00 Resp 26 H 09/09/22 09:00 BP 104/62 09/09/22 09:00 Pulse Ox 99 09/09/22 09:00 FiO2 40 09/09/22 08:00 Intake & Output 09/08/22 09/09/22 09/09/22 18:59 06:59 18:59 Intake Total 5933.283 9312.093 488.437 Output Total 860 1000 260 Balance 323.957 656.093 228.437 Weight 84.4 kg 85.1 kg Intake: IV 309 1122 443 0.9 NS @ 10 ml/hr 60 Potassium Chloride 20 meq 150 100 In Water For Injection 1 100ml.bag @ 50 mls/hr IVPB Q2H [facility] Rx#: [id number] Sodium Chloride 0.9% 1, 225 900 75 000 ml @ 75 mls/hr IV . [id number] [facility] Rx#:[id number] Sodium Chloride 0.9% 500 250 ml 250 ml @ 250 mls/hr IV .Q1H [facility] Rx#:[id number] pressure bag 24 72 18 Intake, IV Titration 824.957 534.093 45.437 Amount Furosemide 100 mg In 99.417 Sodium Chloride 0.9% 90 ml @ 5 MG/HR 5 mls/hr IV .Q20H [facility] Rx#:[id number] Heparin Sod,Pork in 0.45% 152.604 186.552 31.488 NaCl 25,000 unit In 0.45 % NaCl 1 250ml.bag @ 12 UNITS/KG/HR 9.798 mls/hr IV .Q24H [facility] Rx#: [id number] Norepinephrine 4 mg In 292.936 68.284 13.949 Sodium Chloride 0.9% 250 ml @ 0.03 MCG/KG/MIN 9. 332 mls/hr IV .Q24H [facility] Rx#:[id number] Potassium Chloride 10 meq 100 In Water For Injection 1 100ml.bag @ 100 mls/hr IVPB Q1H [facility] Rx#: [id number] Sodium Chloride 0.9% 1, 80 000 ml @ 20 mls/hr IV . Q24H [facility] Rx#:[id number] propofoL 1,000 mg In 100 279.257 Empty Bag 1 bag @ 15 MCG/ KG/MIN 7.348 mls/hr IV . [id number] [facility] Rx#:[id number] Oral 0 Other 50 Output: Urine 860 1000 260 Other: Voiding Method Indwelling Catheter Indwelling Catheter ABP, PAP, CO, CI - Last Documented Arterial Blood Pressure 81/59 - Labs CBC & Chem 7: 09/09/22 04:05 09/09/22 09:24 Labs: Abnormal Lab Results - Last 24 Hours (Table) 09/08/22 09/08/22 09/08/22 Range/Units 11:57 17:15 18:16 RBC (4.30-5.90) m/uL Hgb (13.0-17.5) gm/dL Hct (39.0-53.0) % APTT 183.3 H* (22.0-30.0) sec ABG pH (7.35-7.45) ABG pCO2 (35-45) mmHg ABG pO2 (83-108) mmHg ABG O2 Saturation (94-97) % Sodium (137-145) mmol/L Potassium (3.5-5.1) mmol/L Carbon Dioxide (22-30) mmol/L BUN (9-20) mg/dL Glucose (74-99) mg/dL POC Glucose (mg/dL) 274 H 246 H (70-110) mg/dL Calcium (8.4-10.2) mg/dL 09/08/22 09/09/22 09/09/22 Range/Units 23:48 00:41 01:40 RBC (4.30-5.90) m/uL Hgb (13.0-17.5) gm/dL Hct (39.0-53.0) % APTT (22.0-30.0) sec ABG pH (7.35-7.45) ABG pCO2 (35-45) mmHg ABG pO2 (83-108) mmHg ABG O2 Saturation (94-97) % Sodium 134 L (137-145) mmol/L Potassium 3.1 L 3.1 L (3.5-5.1) mmol/L Carbon Dioxide 20 L (22-30) mmol/L BUN 25 H (9-20) mg/dL Glucose 226 H (74-99) mg/dL POC Glucose (mg/dL) 213 H (70-110) mg/dL Calcium 7.5 L (8.4-10.2) mg/dL 09/09/22 09/09/22 09/09/22 Range/Units 02:55 04:05 06:03 RBC 3.97 L (4.30-5.90) m/uL Hgb 11.9 L (13.0-17.5) gm/dL Hct 35.5 L (39.0-53.0) % APTT 41.5 H (22.0-30.0) sec ABG pH (7.35-7.45) ABG pCO2 (35-45) mmHg ABG pO2 (83-108) mmHg ABG O2 Saturation (94-97) % Sodium (137-145) mmol/L Potassium (3.5-5.1) mmol/L Carbon Dioxide (22-30) mmol/L BUN (9-20) mg/dL Glucose (74-99) mg/dL POC Glucose (mg/dL) 233 H (70-110) mg/dL Calcium (8.4-10.2) mg/dL 09/09/22 09/09/22 09/09/22 Range/Units 06:35 09:24 09:24 RBC (4.30-5.90) m/uL Hgb (13.0-17.5) gm/dL Hct (39.0-53.0) % APTT 49.1 H (22.0-30.0) sec ABG pH 7.49 H (7.35-7.45) ABG pCO2 30 L (35-45) mmHg ABG pO2 130 H (83-108) mmHg ABG O2 Saturation 99.3 H (94-97) % Sodium 134 L (137-145) mmol/L Potassium (3.5-5.1) mmol/L Carbon Dioxide (22-30) mmol/L BUN 24 H (9-20) mg/dL Glucose 217 H (74-99) mg/dL POC Glucose (mg/dL) (70-110) mg/dL Calcium 7.1 L (8.4-10.2) mg/dL
[2022-09-09] MEDS ORDERED: IV FLUID CONTINUATION 1,000 ML IV ONE (11:42)
[2022-09-09] MEDS ORDERED: fentaNYL (PF) 50 MCG/ML 2 ML AMP ONE (12:04)
[2022-09-09] MEDS ORDERED: LIDOCAINE 1% INJ 10MG/ML (20 ML MDV) ONE (12:08)
[2022-09-09] MEDS: fentaNYL (PF) 50 MCG/ML 2 ML AMP IV ONE ×2 (12:10→13:06)
[2022-09-09] MEDS ORDERED: LIDOCAINE 1% INJ 10MG/ML (20 ML MDV) SQ ONE (12:10)
[2022-09-09] MEDS ORDERED: HEPARIN SODIUM 1,000 UN/ML (10ML VL) ONE (12:28)
[2022-09-09] MEDS ORDERED: MIDAZOLAM 2 MG/2 ML VIAL IV ONE (12:51)
[2022-09-09] MEDS ORDERED: TICAGRELOR 90 MG TAB ONE (12:53)
[2022-09-09] MEDS ORDERED: IOPAMIDOL-370 100ML BTL INJ ONE ×2 (13:05→19:31)
[2022-09-09] MEDS ORDERED: TICAGRELOR 90 MG TAB PO ONE (13:05)
[2022-09-09] MEDS ORDERED: MAG HYDROX/AL HYDROX/SIMETH 30 ML CUP PO PRN (13:07)
[2022-09-09] MEDS ORDERED: RX INFO: IV CONTRAST WAS GIVEN 1 EACH MISC MISCELLANE PRN (13:07)
[2022-09-09] MEDS ORDERED: ATROPINE SULFATE 0.1 MG/ML 10ML SYRINGE IV PRN (13:07)
[2022-09-09] MEDS ORDERED: NITROGLYCERIN SL TABS 0.4 MG TAB SUBLINGUAL PRN (13:07)
[2022-09-09] MEDS ORDERED: ZOLPIDEM 5 MG TAB PO PRN (13:07)
[2022-09-09] MEDS ORDERED: SODIUM CHLORIDE 0.9% 1,000 ML in EMPTY BAG 1 BAG IV SCH (13:15)
--- NOTE | 2022-09-09 13:20 | P.PCN ---
Date of Procedure: 09/09/22 Operative Findings: PERCUTANEOUS CORONARY INTERVENTION Performing physician Mahendra Terry M.D. Procedure Performed: 1. Successful stenting of an extremely complex and calcified critical lesion involving the proximal LAD using 3.0 x 23 mm Xience drug-eluting stent with an excellent angiographic results and reduction of stenosis from 99% to 0% 2. Adjunctive use of intravascular ultrasound (IVUS) and lithotripsy balloon (Shockwave) 3. Ultrasound-guided access of the left common femoral artery and left common femoral artery angiogram 4. Reposition of Impella CP in the LV under fluoroscopy guidance Indication This is a 67-year-old gentleman who was admitted to the hospital with acute coronary syndrome and developed acute respiratory failure. He was ruled in for acute non-ST patient myocardial infarction. He underwent an echocardiogram which revealed severe cardiomyopathy. He underwent heart catheterization yesterday and that showed critical triple-vessel coronary artery disease was extremely calcified right and left coronary systems with elevated left-sided filling pressure and also he underwent successful placement off Impella in the LV. He was brought today to undergo an intervention on the LAD has subsequently staged intervention on the right coronary artery. Approach: Left common femoral artery with adjunctive use of ultrasound Complications: None Level of Sedation: Moderate with a sedation length of 50 minutes Procedure Discussion: After obtaining an informed consent the patient was brought to the cardiac labourers. The left common femoral artery was cannulated using micropuncture technique under ultrasound guidance, the micropuncture wire passed easily then I placed a 6-Tajik sheath the left common femoral artery. At that point anticoagulation was initiated and continued using heparin with continuous ACT monitoring. After that I did engage the left main using a CLS 3.5 guiding catheter. Then I did do an angiogram of the left coronary system and subsequently I wire the LAD using a whisper wire. Giving the extremely calcified lesion and critical nature of the lesion I did initially balloon angioplasty using 1.5 mm balloon. Subsequently doing balloon angioplasty using 2.0 mm balloon the balloon was not open fully and I realize this is related to be heavily calcified lesion. I did intravascular ultrasound and that showed a diameter of the LAD around 5 mm with extensive amount of calcium with an arch of calcium extends more than to 70 angle. At that point and because of that I decided to modify the lesion using lithotripsy balloon. I advanced a 3.0 x 12 mm shockwave balloon over the whisper wire to the proximal left anterior descending artery and I did balloon angioplasty on the proximal LAD multiple times delivering lithotripsy shock. I was able to open the lesion using balloon angioplasty. Subsequently I deployed 3.0 x 23 mm stent where the stent was again positioned under fluoroscopy guidance and deployed under 12 dewey for 20 seconds. The following angiogram showed excellent angiographic results. Attempting advancing intravascular ultrasound to assess the stent again was unsuccessful because the ultrasound catheter was hitting the proximal edge of the stent. An angiogram was performed and showed an excellent angiographic results and at that point I decided to stop. JOSÉ MIGUEL-3 flow was achieved. After that I did selective left common femoral artery angiogram before I closed the left groin using the Angio-Seal device. Subsequently I did do fluoroscopy of the Impella and that showed that the catheter was too deep in the LV almost at the apex of the LV and for that reason it was giving suction alarm. Under fluoroscopy guidance a pulled the catheter back about 2 cm and it was positioned in the mid LV. Subsequently the catheter was secured. The procedure was completed was no complication Postprocedure Management: 1. dual antiplatelet therapy using a potent agent, we will use Brilinta along with aspirin 2. PCI of the RCA to be performed at this stage procedure 3. Aggressive cholesterol control
[2022-09-09 13:32] LABS: Glucose,Whole Blood 263 mg/dL (70-110)
--- NOTE | 2022-09-09 13:32 | P.PN ---
Subjective Progress Note Date: 09/09/22 Patient is a 67-year-old male with a history of coronary artery disease status post stenting many years ago, diabetes mellitus type 2 currently not on any medications, and osteoarthritis who presented to the ER via EMS for complaints of increasing shortness of breath. On arrival to the ER he underwent an extensive evaluation. His pulse was 118, respirations 32, blood pressure 163/114, and O2 sat was 85% on CPAP. Laboratory analysis was remarkable for white blood cell count of 12.8, sodium 135, carbon dioxide 13, glucose 186, lactic acid 5.6, total bilirubin 1.6, AST 124, ALT 55, troponin 12.5, and BNP 2930. Chest x-ray showed findings suspicious for pulmonary fibrosis with superimposed left perihilar infiltrate and interstitial pneumonitis. 09/09 Patient was seen and examined. Patient currently sedated on the vent. Vent settings rate 26, tidal volume of 450, FiO2 of 40% with a PEEP of 5. Currently on propofol. Lasix drip discontinued and patient started on 40 mg IV. Heparin drip running at 12 units per kilogram per hour. Levophed running at 0.02 mics per kilogram per hour. Impella device inserted successfully on 09/08. Cardiac cath done yesterday showed severe triple vessel disease. Plans for cardiac cath today with intervention. CBC shows hemoglobin of 11.9. APTT is 49.1. ABG shows pH of 7.49 and pCO2 of 30. BMP shows sodium of 134, BUN of 24, calcium is 7.1 and glucose of 217. Chest x-ray shows pulmonary edema. General: Sedated and intubated, appears at stated age Derm: warm, dry Head: atraumatic, normocephalic, symmetric Eyes: EOMI, no lid lag, anicteric sclera Cardiovascular: S1S2 reg, no murmur Lungs: CTA bilateral, no rhonchi, no rales , no accessory muscle use Ext: no gross muscle atrophy, no edema, no contractures Neuro: Unable to assess Psych: Unable to assess Non-STEMI Acute hypoxic respiratory failure Cardiogenic pulmonary edema Cardiomyopathy, suspect ischemic Cardiogenic shock Acute kidney injury Diabetes mellitus Based on my assessment of this patient, this patient meets a high complexity level of care. Patient has an acute diagnosis of non-ST elevation IN, acute hypoxic respiratory failure secondary to pulmonary edema and cardiogenic shock that poses a threat to life or bodily function. He currently has Impella device inserted. Lasix drip discontinued and patient started on Lasix 40 mg IV twice a day. Continue aspirin 81 mg by mouth daily, Lipitor 40 mg by mouth daily and Brilinta 90 mg by mouth twice a day. Plans for cardiac cath today. Levophed currently running at 0.02 mics per kilo per hour. Attempt to wean. Pulmonology and cardiology on board. Prognosis is guarded. Discussed with significant other at bedside. I have reviewed the following devops consultant notes: Pulmonology note, cardiology note, cardiac cath note reviewed. I have reviewed the results of the following tests: CBC, BMP, APTT, ABG reviewed as above. I have ordered the following tests: I have discussed the care of this patient with the following independent historian: I have independently interpreted the following test below: Chest x-ray reviewed as above. I have discussed the management of this patient with the following physician: Objective - Vital Signs Vital signs: Vital Signs Temp 99.0 F 09/09/22 08:00 Pulse 78 09/09/22 11:17 Resp 24 09/09/22 11:00 BP 98/60 09/09/22 11:00 Pulse Ox 97 09/09/22 11:00 FiO2 40 09/09/22 11:21 Intake & Output 09/08/22 09/09/22 09/09/22 18:59 06:59 18:59 Intake Total 0160.189 8619.093 856.437 Output Total 860 1000 430 Balance 323.957 656.093 426.437 Weight 84.4 kg 85.1 kg 85.1 kg Intake: IV 309 1122 811 0.9 NS @ 10 ml/hr 60 Potassium Chloride 20 meq 150 150 In Water For Injection 1 100ml.bag @ 50 mls/hr IVPB Q2H [facility] Rx#: [id number] Sodium Chloride 0.9% 1, 225 900 225 000 ml @ 75 mls/hr IV . [id number] [facility] Rx#:[id number] Sodium Chloride 0.9% 500 250 ml 250 ml @ 250 mls/hr IV .Q1H [facility] Rx#:[id number] pressure bag 24 72 36 Intake, IV Titration 824.957 534.093 45.437 Amount Furosemide 100 mg In 99.417 Sodium Chloride 0.9% 90 ml @ 5 MG/HR 5 mls/hr IV .Q20H [facility] Rx#:[id number] Heparin Sod,Pork in 0.45% 152.604 186.552 31.488 NaCl 25,000 unit In 0.45 % NaCl 1 250ml.bag @ 12 UNITS/KG/HR 9.798 mls/hr IV .Q24H [facility] Rx#: [id number] Norepinephrine 4 mg In 292.936 68.284 13.949 Sodium Chloride 0.9% 250 ml @ 0.03 MCG/KG/MIN 9. 332 mls/hr IV .Q24H [facility] Rx#:[id number] Potassium Chloride 10 meq 100 In Water For Injection 1 100ml.bag @ 100 mls/hr IVPB Q1H [facility] Rx#: [id number] Sodium Chloride 0.9% 1, 80 000 ml @ 20 mls/hr IV . Q24H [facility] Rx#:[id number] propofoL 1,000 mg In 100 279.257 Empty Bag 1 bag @ 15 MCG/ KG/MIN 7.348 mls/hr IV . [id number] [facility] Rx#:[id number] Oral 0 Other 50 Output: Urine 860 1000 430 Other: Voiding Method Indwelling Catheter Indwelling Catheter Indwelling Catheter ABP, PAP, CO, CI - Last Documented Arterial Blood Pressure 81/59 - Labs CBC & Chem 7: 09/09/22 04:05 09/09/22 09:24 Labs: Abnormal Lab Results - Last 24 Hours (Table) 09/08/22 09/08/22 09/08/22 Range/Units 17:15 18:16 23:48 RBC (4.30-5.90) m/uL Hgb (13.0-17.5) gm/dL Hct (39.0-53.0) % APTT 183.3 H* (22.0-30.0) sec ABG pH (7.35-7.45) ABG pCO2 (35-45) mmHg ABG pO2 (83-108) mmHg ABG O2 Saturation (94-97) % Sodium (137-145) mmol/L Potassium (3.5-5.1) mmol/L Carbon Dioxide (22-30) mmol/L BUN (9-20) mg/dL Glucose (74-99) mg/dL POC Glucose (mg/dL) 246 H 213 H (70-110) mg/dL Calcium (8.4-10.2) mg/dL 09/09/22 09/09/22 09/09/22 Range/Units 00:41 01:40 02:55 RBC (4.30-5.90) m/uL Hgb (13.0-17.5) gm/dL Hct (39.0-53.0) % APTT 41.5 H (22.0-30.0) sec ABG pH (7.35-7.45) ABG pCO2 (35-45) mmHg ABG pO2 (83-108) mmHg ABG O2 Saturation (94-97) % Sodium 134 L (137-145) mmol/L Potassium 3.1 L 3.1 L (3.5-5.1) mmol/L Carbon Dioxide 20 L (22-30) mmol/L BUN 25 H (9-20) mg/dL Glucose 226 H (74-99) mg/dL POC Glucose (mg/dL) (70-110) mg/dL Calcium 7.5 L (8.4-10.2) mg/dL 09/09/22 09/09/22 09/09/22 Range/Units 04:05 06:03 06:35 RBC 3.97 L (4.30-5.90) m/uL Hgb 11.9 L (13.0-17.5) gm/dL Hct 35.5 L (39.0-53.0) % APTT (22.0-30.0) sec ABG pH 7.49 H (7.35-7.45) ABG pCO2 30 L (35-45) mmHg ABG pO2 130 H (83-108) mmHg ABG O2 Saturation 99.3 H (94-97) % Sodium (137-145) mmol/L Potassium (3.5-5.1) mmol/L Carbon Dioxide (22-30) mmol/L BUN (9-20) mg/dL Glucose (74-99) mg/dL POC Glucose (mg/dL) 233 H (70-110) mg/dL Calcium (8.4-10.2) mg/dL 09/09/22 09/09/22 Range/Units 09:24 09:24 RBC (4.30-5.90) m/uL Hgb (13.0-17.5) gm/dL Hct (39.0-53.0) % APTT 49.1 H (22.0-30.0) sec ABG pH (7.35-7.45) ABG pCO2 (35-45) mmHg ABG pO2 (83-108) mmHg ABG O2 Saturation (94-97) % Sodium 134 L (137-145) mmol/L Potassium (3.5-5.1) mmol/L Carbon Dioxide (22-30) mmol/L BUN 24 H (9-20) mg/dL Glucose 217 H (74-99) mg/dL POC Glucose (mg/dL) (70-110) mg/dL Calcium 7.1 L (8.4-10.2) mg/dL Microbiology - Last 24 Hours (Table) 09/07/22 17:14 Gram Stain - Preliminary Sputum Sputum Culture - Preliminary
--- NOTE | 2022-09-09 13:54 | CA ---
Transthoracic Echo Report Name: Neo Roberts Age: 67 Gender: M : 1955 Exam Date: 09/08/2022 21:30 Exam Location: [place] [facility] Ht (in): 72 Wt (lb): 186 Ordering Physician: Mahendra Terry MD ([id number]) Attending/Referring Phys: Multi Media Specialist Yesica Workman RDCS Procedure CPT: Indications: impella placement Cardiac Hx: Technical Quality: Fair Contrast 1: Total Dose (mL): Contrast 2: Total Dose (mL): MEASUREMENTS (Male / Female) Normal Values FINDINGS Left Ventricle Limited study for inquiry about the IMPELLA Device placement. Severely reduced global left ventricular systolic function. Left ventricular ejection fraction is estimated at 20 - 25%. Impella Device noted and adjusted by Dr Terry. Right Ventricle Right Atrium Left Atrium Mitral Valve Aortic Valve Tricuspid Valve Pulmonic Valve Pericardium No pericardial effusion. Aorta CONCLUSIONS Severe LV dysfunction Large bore catheter in LV No pericardial effusion Previewed by: Dr. Wolf Alicea MD (Electronically Signed) Final Date: 09 September 2022 13:53
[2022-09-09] MEDS: SPIRONOLACTONE 25 MG TAB PO SCH (14:27)
[2022-09-09] MEDS: SODIUM CHLORIDE 0.9% 1,000 ML IV SCH (14:28)
[2022-09-09] MEDS: fentaNYL (PF) 50 MCG/ML 2 ML AMP IVP PRN (16:19)
[2022-09-09] MEDS: SODIUM BICARB (1 MEQ/ML) 12.5 ML in DEXTROSE 5% IN WATER 500 ML IV SCH ×2 (16:54)
[2022-09-09 17:15] LABS: HCT 32.3 % (39.0-53.0); HGB 10.7 gm/dL (13.0-17.5); MCH 29.6 pg (25.0-35.0); MCV 89.6 fL (80.0-100.0); Platelet Count 157 k/uL (150-450); RBC 3.61 m/uL (4.30-5.90); RDW 14.8 % (11.5-15.5); WBC 8.7 k/uL (3.8-10.6)
--- NOTE | 2022-09-09 18:28 | P.PN ---
Progress Note - Text Progress Note Date: 09/09/22 Vascular was notified of hematoma consultation. Upon calling back to discuss with nursing staff, intervening riveter pneumatic had spoken with staff. Discussion between myself and cardiology with resultant plan of return to [facility] for angio/ balloon tamponade via impella sheath. Will be available for femoral exploration if necessary.
[2022-09-09 20:12] LABS: Basophils % (A) 0 %; Eosinophils # (A) 0.1 k/uL (0-0.7); Eosinophils % (A) 1 %; HCT 31.6 % (39.0-53.0); HGB 10.5 gm/dL (13.0-17.5); Lymphocytes # (A) 1.3 k/uL (1.0-4.8); Lymphocytes % (A) 14 %; MCHC 33.3 g/dL (31.0-37.0); MCV 90.1 fL (80.0-100.0); Mean Platelet Volume 9.5; Monocytes # (A) 0.6 k/uL (0-1.0); Monocytes % (A) 7 %; Neutrophils % (A) 77 %; Platelet Count 175 k/uL (150-450); RBC 3.51 m/uL (4.30-5.90); RDW 14.8 % (11.5-15.5); WBC 9.1 k/uL (3.8-10.6)
[2022-09-09] MEDS: FUROSEMIDE 10 MG/ML 4 ML VIAL IV SCH (20:21)
[2022-09-09] MEDS: TICAGRELOR 90 MG TAB PO SCH (20:21)
[2022-09-09 20:29] LABS: Potassium 3.6 mmol/L (3.5-5.1)
[2022-09-09] MEDS ORDERED: POTASSIUM CHLORIDE ER 20 MEQ TAB.ER PO SCH (22:00)
--- NOTE | 2022-09-09 22:40 | P.PCN ---
Date of Procedure: 09/09/22 Operative Findings: Percutaneous peripheral arterial procedure Performing physician Mahendra Terry M.D. Procedure performed 1. Selective left common femoral artery and left external iliac artery and left common iliac artery angiogram 2. Removal of Impella CP from the LV 3. Successful percutaneous repair of right common femoral artery using two Perclose devices Indication Please see previous procedure for details. The patient was admitted to the hospital with acute coronary syndrome complicated by respiratory failure and cardiogenic shock. He initially underwent successful placement of Impella CP in the left ventricle yesterday and today he was brought for intervention on the left anterior descending artery from left femoral approach. Subsequently he developed left groin hematoma where hemostasis was not achieved. He was brought today to the cardiac starch factory laborer emergently to undergo dominant being of the left common femoral artery from right groin approach. Complications None Level of sedation Moderate with a sedation time of 32 minutes Procedure description The patient was brought emergently to the cardiac starch factory laborer. Subsequently the Impella was turned off and it was pulled from the LV and subsequently pulled through the 14-Haitian sheath at the right common femoral artery. The sheath subsequently was flushed after we make sure that there was a blush bleeding from it. The sheath was not thrombosed. Subsequently I did advanced an 035 wire into the 14-H[place] sheath all the way to the infrarenal aorta. Using a rim catheter I was able to select the left iliac artery from right common femoral artery. At that point selective left common femoral artery and left external iliac artery and left common iliac artery angiogram was performed and showed no evidence of bleeding or contrast staining. At that point no need to perform any [place] adding of the left femoral artery nor placement of cord stent because there was good hemostasis and no bleeding was identified. Subsequently I did pull the rim catheter outside and a left the [address] in the descending aorta. At that point I did pull the 14-Haitian sheath after I deployed the perclose at the right common femoral artery simultaneously with achieving good hemostasis and no bleeding. The procedure was completed was no complication Postprocedure management 1. Dual antiplatelet therapy 2. Avoid any heparin 3. Monitor the hemoglobin and consider blood transfusion dropped below 8
[2022-09-09 23:32] LABS: Glucose,Whole Blood 222 mg/dL (70-110)
[2022-09-10] MEDS: IPRATROPIUM-ALBUTEROL 3 ML NEB INHALATION SCH ×7 (00:54→23:43)
[2022-09-10 04:18] LABS: Basophils % (A) 0 %; Eosinophils % (A) 0 %; HCT 29.4 % (39.0-53.0); HGB 9.6 gm/dL (13.0-17.5); Lymphocytes # (A) 0.8 k/uL (1.0-4.8); Lymphocytes % (A) 11 %; MCH 29.4 pg (25.0-35.0); MCHC 32.7 g/dL (31.0-37.0); MCV 89.8 fL (80.0-100.0); Mean Platelet Volume 10.9; Monocytes # (A) 0.5 k/uL (0-1.0); Monocytes % (A) 6 %; Neutrophils # (A) 5.7 k/uL (1.3-7.7); Neutrophils % (A) 81 %; Platelet Count 157 k/uL (150-450); RBC 3.28 m/uL (4.30-5.90); RDW 14.9 % (11.5-15.5)
[2022-09-10 04:27] LABS: African American GFR (CKD) >90 (>60 ml/min/1.73 sqM); Anion Gap 5 mmol/L; Blood Urea Nitrogen 23 mg/dL (9-20); Calcium 7.1 mg/dL (8.4-10.2); Carbon Dioxide 22 mmol/L (22-30); Chloride 107 mmol/L (98-107); Glucose 236 mg/dL (74-99); Magnesium 1.9 mg/dL (1.6-2.3); Non-African American GFR(CKD) 84 (>60 ml/min/1.73 sqM); Potassium 3.7 mmol/L (3.5-5.1); Sodium 134 mmol/L (137-145)
[2022-09-10] MEDS ORDERED: MAGNESIUM SULFATE-D5W PMX 1 GM in DEXTROSE/WATER 1 100ML.BAG IVPB ONE (04:35)
[2022-09-10] MEDS ORDERED: POTASSIUM BICARBONATE/CIT AC 20 MEQ TABLET.EFF NG-TUBE SCH (05:00)
[2022-09-10 05:46] LABS: Glucose,Whole Blood 267 mg/dL (70-110)
[2022-09-10] MEDS: INSULIN ASPART (NovoLOG) 100 UNIT/ML VIAL SQ SCH ×4 (05:58→17:28)
[2022-09-10] MEDS: INSULIN DETEMIR (LEVEMIR) 100 UNIT/ML SYR SQ SCH (06:03)
[2022-09-10 06:13] LABS: ABG Base Excess -1.7 mmol/L; ABG HCO3 22 mmol/L (21-25); ABG Oxygen Saturation 99.1 % (94-97); ABG PCO2 31 mmHg (35-45); ABG PH 7.46 (7.35-7.45); ABG PO2 126 mmHg (83-108); ABG TCO2 23 mmol/L (19-24); Allen Test Performed? Yes
--- NOTE | 2022-09-10 07:29 | XR ---
EXAMINATION TYPE: XR chest 1V portable DATE OF EXAM: 09/10/2022 COMPARISON: 09/09/2022 HISTORY: SOB, Follow Up FINDINGS: Indwelling tubes and catheters are unchanged. Left ventricular catheter has been removed. No change in bibasilar opacities. Stable appearance of the cardio-mediastinal structures at this time. Pleural effusion unchanged. IMPRESSION: 1. Stable portable chest. Clinical correlation and follow up until resolution is recommended.
[2022-09-10] MEDS: NOREPINEPHRINE 4 MG in SODIUM CHLORIDE 0.9% 250 ML IV SCH (07:30)
[2022-09-10] MEDS: FAMOTIDINE 20 MG/2 ML VIAL IV SCH ×2 (08:44→21:31)
[2022-09-10] MEDS: SPIRONOLACTONE 25 MG TAB PO SCH (08:45)
[2022-09-10] MEDS: CHLORHEXIDINE GLUCONATE 15 ML CUP MUCOUS MEM SCH ×2 (08:45→21:31)
[2022-09-10] MEDS: ATORVASTATIN 40 MG TAB PO SCH (08:45)
[2022-09-10] MEDS: FUROSEMIDE 10 MG/ML 4 ML VIAL IV SCH ×2 (08:45→21:31)
--- NOTE | 2022-09-10 09:28 | P.PN ---
Subjective Progress Note Date: 09/10/22 A 67-year-old male patient, came into the emergency department because of worsening shortness of breath. The patient lives in [facility] and he has a primary care physician out of [facility]. The patient was visiting here in [place] and became progressively more short of breath. No significant cough or sputum production. No hemoptysis. No pleurisy. No angina. No palpitations. He is known to have CAD and he has undergone stenting many years back and she is not seeing a vice president on a regular basis. He is known to have hypertension. He is an ex-smoker. In the emergency, the patient was found to be hypertensive and he was diagnosed having an acute hypertensive emergency with secondary pulmonary edema. EKG showed some nonspecific ST segment changes in the lateral leads and anteroseptal Q waves. The cardiac rhythm was sinus. The chest x-ray was consistent with pulmonary edema. The patient's initial troponin came back at 12.5. His lactic acid level was at 5.6. ProBNP level was 2930. There was done was 12.8 with hemoglobin 14.3 and a platelet count of 276. The patient was started on IV heparin. The patient was started on nitroglycerin drip. Blood pressures under better control. Subsequently, the patient was also placed on a BiPAP at a pressure of 12/5 cm of water with an FiO2 of 50%. The current pulse ox is 97%. Most recent BP is 140/97 and a nitroglycerin is being titrated accordingly. He was given also Lasix. He is producing adequate amount of urine output. The chest x-ray showed coarse interstitial changes bilaterally. Most likely interstitial edema/CHF. On today's evaluation 09/07/2002, the patient is intubated on a mechanical ventilator. Note that after my initial evaluation, the patient's condition decompensated and the patient went into acute hypoxic respiratory failure and he was in significant amount of respiratory distress in the emergency department. Recommended intubation mechanical ventilation. The triple-lumen catheter was also inserted in the emergency. His chest x-ray was consistent with pulmonary edema. Following intubation, the patient was kept on propofol which is running at 40 mcg/kg/m. He remains on IV heparin. Troponins peaked at 27.7 consistent with an acute non-ST segment elevation myocardial infarction. Echocardiogram showed severe systolic heart failure and the patient has impaired left ventricular ejection fraction based on a limited echocardiogram and the ejection fraction was in the order of 20%. There was also mild mitral regurgitation and the right ventricular systolic pressure was around 51. This morning, the patient is quite stable on a mechanical ventilator. He is on assist control at the rate of 26 with a tidal volume of 450 and FiO2 of 40% with a PEEP of 5. His blood gases showed pH of 7.5 with a pCO2 of 29 and pO2 124 and this was on FiO2 of 50% and based on that FiO2 is up to 140. His chest x-ray still consistent with pulmonary edema. He remains on IV heparin. Is also on pressors were norepinephrine running at 0.08 microvascular kilogram per minute. He is also on Lasix drip at 5 mg an hour. His urine output is in order of 700 mL overnight. As such, the patient has not been diuresing aggressively. His creatinine is up to 1.4 consistent with an acute kidney injury with a BUN of 24. Sodium is at 135, the results was at 13 with a hemoglobin 12.4 and a platelet count of 260. Cardiology was made aware the patient is going to undergo a cardiac c atheterization with possibly an Impala insertion. Cardiac rhythm is sinus. The patient on aspirin. The patient on IV heparin. The patient is on Levemir insulin 10 units and he is also taken a slight scale insulin coverage. Condition is still critical. He remains in cardiogenic shock. He is post acute NSTEMI. On today's evaluation of 09/09/2022, the patient remains intubated on a mechanical ventilator. The patient was taken to the laboratory sampler yesterday and cardiac catheterization was done. The patient had significant elevation of the left ventricular end-diastolic pressure which was in the order of 30 mmHg. The patient was also found to have severe triple-vessel disease. RCA was diffusely diseased in order of 99% in the proximal portion, there was also 99% distal portion occlusion, the LAD was of a large caliber and it had a lesion in the proximal portion in order of 99%, there was a large diagonal branch that had a proximal lesion of 80-90%, th circumflex also had an 80% lesion. The patient was in Impella which is currently at the AP 6 flow at 2.7 L/m. His urine output is improved. His creatinine is improved. In fact, his creatinine is down to 1.4 with a BUN of 25. I was told by the vice president that immediately after the insertion of the device, his left and end-diastolic pressures dropped. The plan is to unload the LV at this point in time. The patient remains on a mechanical ventilator, assist control of 26, tidal volume of 450, FiO2 of 40% with a PEEP of 5. Blood gas from this morning shows a pH of 7.49 with a pCO2 of 30 and pO2 of 130. Chest x-ray still showing evidence of CHF and pulmonary edema. There is evidence of left lower lobe atelectasis and bilateral pleural effusions slightly worse on the left. He is out of is currently at 8.1 with a hemoglobin of 11.9 and platelet count of 192. The patient is on IV heparin. The patient on aspirin. The patient is also requiring pressors and norepinephrine is running at 0.03 mcg/kg/m. He has a left IJ triple-lumen catheter in place. He'll be started on enteral feeding for nutritional support. Is on Lasix drip at 5 mg an hour. On today's evaluation of 09/10/2022, the patient remains intubated on a mechanical ventilator. The patient has severe multivessel coronary artery disease, he is status post acute non-ST segment elevation myocardial infarction and cardiogenic shock requiring intubation mechanical ventilation. He underwent cardiac catheterization and Impella insertion, and subsequently was taken back to the [facility] yesterday for stenting of the LAD. The procedure was done and subsequently the patient developed a left groin hematoma. The patient was taken to the Produce Team [facility]. No further intervention was done. The Impala was removed. The patient was brought back to the ICU. The patient remains on a mechanical ventilator. The patient is currently on assist control mode at a rate of 20, tidal volume of 450, FiO2 of 40% and a PEEP of 5. The blood gas from today shows a pH of 7.46 with a pCO2 of 31 and pO2 126. He is currently on a combination of aspirin and Plavix. IV heparin has been discontinued. He was taken off the Lasix drip and currently is receiving Lasix 40 mg IV every 12 hours. He remains on low-dose of norepinephrine at 0.03 mcg/kg/m. He was also started on therapeutic for nutritional support. Renal function is stable. Hemoglobin is down to 9.6. Sodium is at 134 with a potassium level of 3.7, BUN is 23 with a creatinine of 0.9. Objective - Vital Signs Vital signs: Vital Signs Temp 98.3 F 09/10/22 04:00 Pulse 72 09/10/22 07:47 Resp 21 09/10/22 07:00 BP 98/60 09/09/22 11:00 Pulse Ox 98 09/10/22 07:00 FiO2 40 09/10/22 07:25 Intake & Output 09/09/22 09/10/22 09/10/22 18:59 06:59 18:59 Intake Total 1329.865 752.581 113.767 Output Total 825 615 25 Balance 504.865 137.581 88.767 Weight 85.1 kg Intake: IV 1135 266 26 Magnesium Sulfate-D5w Pmx 100 1 gm In Dextrose/Water 1 100ml.bag @ 100 mls/hr IVPB Q1H [facility] Rx#: [id number] Potassium Chloride 20 meq 150 In Water For Injection 1 100ml.bag @ 50 mls/hr IVPB Q2H [facility] Rx#: [id number] Sodium Chloride 0.9% 1, 100 20 000 ml @ 20 mls/hr IV . Q24H [facility] Rx#:[id number] Sodium Chloride 0.9% 1, 525 000 ml @ 75 mls/hr IV . [id number] [facility]A Rx#:[id number] Sodium Chloride 0.9% 500 250 ml 250 ml @ 250 mls/hr IV .Q1H ONE Rx#:[id number] pressure bag 60 66 6 Intake, IV Titration 194.865 266.581 67.767 Amount Heparin Sod,Pork in 0.45% 135.859 NaCl 25,000 unit In 0.45 % NaCl 1 250ml.bag @ 12 UNITS/KG/HR 9.798 mls/hr IV .Q24H [facility]DRA Rx#: [id number] Norepinephrine 4 mg In 59.006 87.774 Sodium Chloride 0.9% 250 ml @ 0.03 MCG/KG/MIN 9. 332 mls/hr IV .Q24H [facility] Rx#:[id number] propofoL 1,000 mg In 178.807 67.767 Empty Bag 1 bag @ 15 MCG/ KG/MIN 7.348 mls/hr IV . [id number] [facility] Rx#:[id number] Tube Feeding 160 20 Other 60 Output: Urine 825 615 25 Other: Voiding Method Indwelling Catheter Indwelling Catheter ABP, PAP, CO, CI - Last Documented Arterial Blood Pressure 103/53 - Exam Patient is calm and comfortable on mechanical ventilator. He is on assist control mode. Intubated, and orotracheal and orogastric tube are in good location the patient has a left IJ triple-lumen catheter in place. The patient is adequately sedated with propofol running at a dose of 50 mcg/kg/m and is quite successful mechanical ventilator Head exam was generally normal. There was no scleral icterus or corneal arcus. Mucous membranes were moist. Neck was supple and without jugular venous distension, thyromegaly, or carotid bruits. Carotids were easily palpable bilaterally. There was no adenopathy. The patient has a left IJ triple-lumen catheter Lungs sounds are diminished bilaterally especially in the lung bases. The patient is also some limited crackles bilaterally. Heart sounds are distant, positive S1 and S2, slightly tachycardic. No significant murmurs appreciated. Abdominal exam revealed normal bowel sounds. The abdomen was soft, non-tender, and without masses, organomegaly, or appreciable enlargement of the abdominal aorta. Left groin hematoma which is currently stable and unchanged. The Impella has been removed. Examination of the extremities revealed easily palpable radial, femoral and pedal pulses. There was no cyanosis, clubbing or edema. Examination of the skin revealed no evidence of significant rashes, suspicious appearing nevi or other concerning lesions. The Impella catheter is currently in place Neurologically, the patient is sedated on propofol - Labs CBC & Chem 7: 09/10/22 04:02 09/10/22 04:02 Labs: Abnormal Lab Results - Last 24 Hours (Table) 09/09/22 09/09/22 09/09/22 Range/Units 09:24 09:24 13:31 RBC (4.30-5.90) m/uL Hgb (13.0-17.5) gm/dL Hct (39.0-53.0) % Lymphocytes # (1.0-4.8) k/uL APTT 49.1 H (22.0-30.0) sec Fibrinogen (200-500) mg/dL ABG pH (7.35-7.45) ABG pCO2 (35-45) mmHg ABG pO2 (83-108) mmHg ABG O2 Saturation (94-97) % Sodium 134 L (137-145) mmol/L Potassium (3.5-5.1) mmol/L BUN 24 H (9-20) mg/dL Glucose 217 H (74-99) mg/dL POC Glucose (mg/dL) 263 H (70-110) mg/dL Calcium 7.1 L (8.4-10.2) mg/dL Lactate Dehydrogenase (120-246) U/L Crossmatch 09/09/22 09/09/22 09/09/22 Range/Units 13:55 13:55 17:04 RBC 3.61 L (4.30-5.90) m/uL Hgb 10.7 L (13.0-17.5) gm/dL Hct 32.3 L (39.0-53.0) % Lymphocytes # (1.0-4.8) k/uL APTT (22.0-30.0) sec Fibrinogen 684 H (200-500) mg/dL ABG pH (7.35-7.45) ABG pCO2 (35-45) mmHg ABG pO2 (83-108) mmHg ABG O2 Saturation (94-97) % Sodium (137-145) mmol/L Potassium (3.5-5.1) mmol/L BUN (9-20) mg/dL Glucose (74-99) mg/dL POC Glucose (mg/dL) (70-110) mg/dL Calcium (8.4-10.2) mg/dL Lactate Dehydrogenase 943 H (120-246) U/L Crossmatch 09/09/22 09/09/22 09/09/22 Range/Units 17:04 17:25 19:35 RBC (4.30-5.90) m/uL Hgb (13.0-17.5) gm/dL Hct (39.0-53.0) % Lymphocytes # (1.0-4.8) k/uL APTT (22.0-30.0) sec Fibrinogen (200-500) mg/dL ABG pH (7.35-7.45) ABG pCO2 (35-45) mmHg ABG pO2 (83-108) mmHg ABG O2 Saturation (94-97) % Sodium (137-145) mmol/L Potassium 3.3 L (3.5-5.1) mmol/L BUN (9-20) mg/dL Glucose (74-99) mg/dL POC Glucose (mg/dL) (70-110) mg/dL Calcium (8.4-10.2) mg/dL Lactate Dehydrogenase 900 H (120-246) U/L Crossmatch See Detail 09/09/22 09/09/22 09/10/22 Range/Units 19:35 23:31 04:02 RBC 3.51 L (4.30-5.90) m/uL Hgb 10.5 L (13.0-17.5) gm/dL Hct 31.6 L (39.0-53.0) % Lymphocytes # (1.0-4.8) k/uL APTT (22.0-30.0) sec Fibrinogen (200-500) mg/dL ABG pH (7.35-7.45) ABG pCO2 (35-45) mmHg ABG pO2 (83-108) mmHg ABG O2 Saturation (94-97) % Sodium 134 L (137-145) mmol/L Potassium (3.5-5.1) mmol/L BUN 23 H (9-20) mg/dL Glucose 236 H (74-99) mg/dL POC Glucose (mg/dL) 222 H (70-110) mg/dL Calcium 7.1 L (8.4-10.2) mg/dL Lactate Dehydrogenase (120-246) U/L Crossmatch 09/10/22 09/10/22 09/10/22 Range/Units 04:02 05:44 06:10 RBC 3.28 L (4.30-5.90) m/uL Hgb 9.6 L (13.0-17.5) gm/dL Hct 29.4 L (39.0-53.0) % Lymphocytes # 0.8 L (1.0-4.8) k/uL APTT (22.0-30.0) sec Fibrinogen (200-500) mg/dL ABG pH 7.46 H (7.35-7.45) ABG pCO2 31 L (35-45) mmHg ABG pO2 126 H (83-108) mmHg ABG O2 Saturation 99.1 H (94-97) % Sodium (137-145) mmol/L Potassium (3.5-5.1) mmol/L BUN (9-20) mg/dL Glucose (74-99) mg/dL POC Glucose (mg/dL) 267 H (70-110) mg/dL Calcium (8.4-10.2) mg/dL Lactate Dehydrogenase (120-246) U/L Crossmatch Microbiology - Last 24 Hours (Table) 09/07/22 17:14 Gram Stain - Final Sputum Sputum Culture - Final Assessment and Plan Plan: Acute non-ST segment elevation myocardial infarction, troponin peaked at 27 and the patient is currently on IV heparin, aspirin and the patient is also on pressors for hemodynamic support. The patient is to be taken to the laboratory sampler for cardiac catheterization, and the patient was found to have severe triple-vessel disease and the patient was in cardiogenic shock with elevated lipids of end-diastolic pressure of 30 mmHg. He was given Impella . The patient is post cardiac catheterization and insertion of drug-eluting. The patient's procedure was completed by development of a left groin hematoma which is currently stable. The patient is currently on accommodation of aspirin and Plavix. IV heparin has been discontinued. Acute cardiogenic shock/pulmonary edema. The patient is currently on low-dose pressors, echocardiogram showing a systolic heart failure with ejection fraction of 20%, the patient is post non-ST segment elevation myocardial infarction with diffuse triple-vessel coronary artery disease currently on Lasix drip and Impella note that the device was removed and the patient is currently on Lasix 40 mg IV every 12 hours. Chest x-ray shows near resolution of the pulmonary edema. Adequate blood gases. Hypertension, history of Acute hypoxic respiratory failure secondary to above the patient is currently intubated on a mechanical ventilator, blood gases were noted Acute kidney injury related to cardiorenal factors. The patient is on Lasix, renal function is improved as the patient got augmented cardiac output with Impella, the device has been removed Known history of coronary artery disease with previous coronary stenting many years back Acute lactic acidosis Acute blood loss anemia with development of a left groin hematoma, expected outcome of cardiac catheterization Plan Continue ventilator support Keep the patient sedated on propofoll Continue aspirin and Plavix Stop the IV heparin Continue Lasix drip 40 mg 12 hours Continue enteral feeding for nutritional support Removed the Impella Echocardiogram was noted The patient underwent LAD revascularization Continue statins Continue Levemir insulin We'll keep him intubated for another 24 hours due to the complications related to the left groin hematoma Condition is critical and cardiology is on the case. Condition is critical evaluation was done in more than 30 minutes Time with Patient: Greater than 30
[2022-09-10] MEDS: TICAGRELOR 90 MG TAB PO SCH ×2 (09:34→21:32)
[2022-09-10] MEDS: ASPIRIN 81 MG PO SCH (09:34)
[2022-09-10 11:44] LABS: Glucose,Whole Blood 296 mg/dL (70-110)
--- NOTE | 2022-09-10 12:11 | P.PN ---
Subjective Progress Note Date: 09/10/22 The patient is a 67-year-old male who is currently admitted with hypertensive emergency and non-ST elevated myocardial infarction. Over the last 24 hours the patient has subsequently been intubated and is sedated in the ICU. He has on a small amount of Levophed as well as a Lasix drip. Troponins have peaked at 27. Echocardiogram revealed severely reduced LV function at 20-25%. The patient underwent coronary angiogram and Impella placement yesterday with Dr Terry. Angiogram revealed extremely calcified right and left coronary systems with 99% occlusions in the RCA, 80% in proximal left circumflex, 99% tubular lesion in the mid LAD, and 80% in first diagonal. On September [address] enting of the LAD with Dr. Clinton. The patient developed a large postoperative hematoma at his left groin site. Angiogram was performed after impella removal, and there was no bleeding noted at left femoral site. The patient has remained on low-dose Levophed since his return from the operating room. He is hemodynamically stable. GENERAL: Ill-appearing, well-nourished and in no acute distress. Sedated on propofol. NECK: Supple without JVD or thyromegaly. LUNGS: Breath sounds coarse to auscultation bilaterally. Respiration equal and unlabored. HEART: Regular rate and rhythm without murmurs, rubs or gallops. S1 and S2 heard. EXTREMITIES: Normal range of motion, no edema. No clubbing or cyanosis. Peripheral pulses intact and strong. Left groin site has moderate sized hematoma and significant bruising. TELEMETRY: Sinus rhythm overnight. No arrhythmias. LABS: WBC 7.0, hemoglobin 9.6, hematocrit 29.4, platelet 157, sodium 134, potassium 3.7, BUN 23, creatinine 0.93 IMPRESSION: Non-ST elevated myocardial infarction Cardiogenic shock Severe triple-vessel coronary artery disease Ischemic cardiomyopathy, EF 20-25% Pulmonary edema Acute hypoxic respiratory failure History of coronary artery disease History of diabetes Hypokalemia PLAN: Continue current medication regimen Monitor for anemia Wean off of norepinephrine Start low-dose beta miranda tomorrow Further recommendations. His clinical course I am dictating on behalf of Dr Wolf Alicea's history/physical and assessmen t/plan. Objective - Vital Signs Vital signs: Vital Signs Temp 98.7 F 09/10/22 08:00 Pulse 74 09/10/22 11:23 Resp 26 H 09/10/22 09:30 BP 98/60 09/09/22 11:00 Pulse Ox 100 09/10/22 09:30 FiO2 40 09/10/22 11:11 Intake & Output 09/09/22 09/10/22 09/10/22 18:59 06:59 18:59 Intake Total 1329.865 752.581 311.767 Output Total 825 615 365 Balance 504.865 137.581 -53.233 Weight 85.1 kg Intake: IV 1135 266 104 Magnesium Sulfate-D5w Pmx 100 1 gm In Dextrose/Water 1 100ml.bag @ 100 mls/hr IVPB Q1H [facility] Rx#: [id number] Potassium Chloride 20 meq 150 In Water For Injection 1 100ml.bag @ 50 mls/hr IVPB Q2H [facility] Rx#: [id number] Sodium Chloride 0.9% 1, 100 80 000 ml @ 20 mls/hr IV . Q24H [facility] Rx#:[id number] Sodium Chloride 0.9% 1, 525 000 ml @ 75 mls/hr IV . [id number] [facility] Rx#:[id number] Sodium Chloride 0.9% 500 250 ml 250 ml @ 250 mls/hr IV .Q1H ONE Rx#:[id number] pressure bag 60 66 24 Intake, IV Titration 194.865 266.581 67.767 Amount Heparin Sod,Pork in 0.45% 135.859 NaCl 25,000 unit In 0.45 % NaCl 1 250ml.bag @ 12 UNITS/KG/HR 9.798 mls/hr IV .Q24H [facility] Rx#: [id number] Norepinephrine 4 mg In 59.006 87.774 Sodium Chloride 0.9% 250 ml @ 0.03 MCG/KG/MIN 9. 332 mls/hr IV .Q24H [facility] Rx#:[id number] propofoL 1,000 mg In 178.807 67.767 Empty Bag 1 bag @ 15 MCG/ KG/MIN 7.348 mls/hr IV . [id number] [facility] Rx#:[id number] Tube Feeding 160 110 Other 60 30 Output: Urine 825 615 365 Other: Voiding Method Indwelling Catheter Indwelling Catheter ABP, PAP, CO, CI - Last Documented Arterial Blood Pressure 112/53 - Labs CBC & Chem 7: 09/10/22 04:02 09/10/22 04:02 Labs: Abnormal Lab Results - Last 24 Hours (Table) 09/09/22 09/09/22 09/09/22 Range/Units 13:31 13:55 13:55 RBC (4.30-5.90) m/uL Hgb (13.0-17.5) gm/dL Hct (39.0-53.0) % Lymphocytes # (1.0-4.8) k/uL Fibrinogen 684 H (200-500) mg/dL ABG pH (7.35-7.45) ABG pCO2 (35-45) mmHg ABG pO2 (83-108) mmHg ABG O2 Saturation (94-97) % Sodium (137-145) mmol/L Potassium (3.5-5.1) mmol/L BUN (9-20) mg/dL Glucose (74-99) mg/dL POC Glucose (mg/dL) 263 H (70-110) mg/dL Calcium (8.4-10.2) mg/dL Lactate Dehydrogenase 943 H (120-246) U/L Crossmatch 09/09/22 09/09/22 09/09/22 Range/Units 17:04 17:04 17:25 RBC 3.61 L (4.30-5.90) m/uL Hgb 10.7 L (13.0-17.5) gm/dL Hct 32.3 L (39.0-53.0) % Lymphocytes # (1.0-4.8) k/uL Fibrinogen (200-500) mg/dL ABG pH (7.35-7.45) ABG pCO2 (35-45) mmHg ABG pO2 (83-108) mmHg ABG O2 Saturation (94-97) % Sodium (137-145) mmol/L Potassium 3.3 L (3.5-5.1) mmol/L BUN (9-20) mg/dL Glucose (74-99) mg/dL POC Glucose (mg/dL) (70-110) mg/dL Calcium (8.4-10.2) mg/dL Lactate Dehydrogenase (120-246) U/L Crossmatch See Detail 09/09/22 09/09/22 09/09/22 Range/Units 19:35 19:35 23:31 RBC 3.51 L (4.30-5.90) m/uL Hgb 10.5 L (13.0-17.5) gm/dL Hct 31.6 L (39.0-53.0) % Lymphocytes # (1.0-4.8) k/uL Fibrinogen (200-500) mg/dL ABG pH (7.35-7.45) ABG pCO2 (35-45) mmHg ABG pO2 (83-108) mmHg ABG O2 Saturation (94-97) % Sodium (137-145) mmol/L Potassium (3.5-5.1) mmol/L BUN (9-20) mg/dL Glucose (74-99) mg/dL POC Glucose (mg/dL) 222 H (70-110) mg/dL Calcium (8.4-10.2) mg/dL Lactate Dehydrogenase 900 H (120-246) U/L Crossmatch 09/10/22 09/10/22 09/10/22 Range/Units 04:02 04:02 05:44 RBC 3.28 L (4.30-5.90) m/uL Hgb 9.6 L (13.0-17.5) gm/dL Hct 29.4 L (39.0-53.0) % Lymphocytes # 0.8 L (1.0-4.8) k/uL Fibrinogen (200-500) mg/dL ABG pH (7.35-7.45) ABG pCO2 (35-45) mmHg ABG pO2 (83-108) mmHg ABG O2 Saturation (94-97) % Sodium 134 L (137-145) mmol/L Potassium (3.5-5.1) mmol/L BUN 23 H (9-20) mg/dL Glucose 236 H (74-99) mg/dL POC Glucose (mg/dL) 267 H (70-110) mg/dL Calcium 7.1 L (8.4-10.2) mg/dL Lactate Dehydrogenase (120-246) U/L Crossmatch 09/10/22 09/10/22 Range/Units 06:10 11:42 RBC (4.30-5.90) m/uL Hgb (13.0-17.5) gm/dL Hct (39.0-53.0) % Lymphocytes # (1.0-4.8) k/uL Fibrinogen (200-500) mg/dL ABG pH 7.46 H (7.35-7.45) ABG pCO2 31 L (35-45) mmHg ABG pO2 126 H (83-108) mmHg ABG O2 Saturation 99.1 H (94-97) % Sodium (137-145) mmol/L Potassium (3.5-5.1) mmol/L BUN (9-20) mg/dL Glucose (74-99) mg/dL POC Glucose (mg/dL) 296 H (70-110) mg/dL Calcium (8.4-10.2) mg/dL Lactate Dehydrogenase (120-246) U/L Crossmatch Microbiology - Last 24 Hours (Table) 09/07/22 17:14 Gram Stain - Final Sputum Sputum Culture - Final
--- NOTE | 2022-09-10 12:15 | CT ---
EXAMINATION TYPE: CT brain wo con DATE OF EXAM: 09/10/2022 COMPARISON: None HISTORY: Unequal pupils. History of recent cardiac cath. CT DLP: 1217.[address] of the brain was performed. The ventricles, basal cisterns and sulci overlying the cerebral convexities demonstrate mild enlargem ent. There is no evidence for intracranial hemorrhage or sulcal effacement. There is decreased attenuation about the periventricular white matter and deep white matter of both c erebral hemispheres, compatible with chronic small vessel ischemia. Differential diagnosis does inclu de demyelination. No mass effects are seen.No midline shift. Osseous calvarium is intact. Small scalp hematoma right temporal occipital region. If symptoms persist consider MRI. IMPRESSION: 1. Age related atrophic and chronic small vessel ischemic change without acute intracranial process s een at this time.
[2022-09-10] MEDS: fentaNYL (PF) 50 MCG/ML 2 ML AMP IVP PRN (13:28)
--- NOTE | 2022-09-10 14:55 | P.PN ---
Subjective Progress Note Date: 09/10/22 Patient is a 67-year-old male with a history of coronary artery disease status post stenting many years ago, diabetes mellitus type 2 currently not on any medications, and osteoarthritis who presented to the ER via EMS for complaints of increasing shortness of breath. On arrival to the ER he underwent an extensive evaluation. His pulse was 118, respirations 32, blood pressure 163/114, and O2 sat was 85% on CPAP. Laboratory analysis was remarkable for white blood cell count of 12.8, sodium 135, carbon dioxide 13, glucose 186, lactic acid 5.6, total bilirubin 1.6, AST 124, ALT 55, troponin 12.5, and BNP 2930. Chest x-ray showed findings suspicious for pulmonary fibrosis with superimposed left perihilar infiltrate and interstitial pneumonitis. 09/09 Patient was seen and examined. Patient currently sedated on the vent. Vent settings rate 26, tidal volume of 450, FiO2 of 40% with a PEEP of 5. Currently on propofol. Lasix drip discontinued and patient started on 40 mg IV. Heparin drip running at 12 units per kilogram per hour. Levophed running at 0.02 mics per kilogram per hour. Impella device inserted successfully on 09/08. Cardiac cath done yesterday showed severe triple vessel disease. Plans for cardiac cath today with intervention. CBC shows hemoglobin of 11.9. APTT is 49.1. ABG shows pH of 7.49 and pCO2 of 30. BMP shows sodium of 134, BUN of 24, calcium is 7.1 and glucose of 217. Chest x-ray shows pulmonary edema. 09/10 Patient was seen and examined. Sedated on the vent. Vent settings rate of 20, tidal volume of 450, FiO2 of 40% and a PEEP of 5. Underwent cardiac cath yesterday with stenting to the LAD. Patient developed a left groin hematoma after cardiac cath, taken back to the [facility] Dental Technician and Impella was removed. Today, he was noted to have unequal pupils and stat CT head was ordered which was negative for acute intracranial process. CBC shows hemoglobin 9.6. ABG shows pH is 7.46 and pCO2 of 31. BMP shows sodium 134, BUN of 23, glucose of 236 and calcium is 7.1. Chest x-ray shows bibasilar opacities and pleural effusion. General: Sedated and intubated, appears at stated age Derm: warm, dry Head: atraumatic, normocephalic, symmetric Eyes: no lid lag, anicteric sclera, uneven pupils Cardiovascular: S1S2 reg, no murmur Lungs: Coarse breath sounds bilateral, no rhonchi, no rales , no accessory muscle use Ext: no gross muscle atrophy, no edema, no contractures, L groin hematoma Neuro: Unable to assess Psych: Unable to assess Non-STEMI L groin hematoma Acute hypoxic respiratory failure Cardiogenic pulmonary edema Cardiomyopathy, suspect ischemic Cardiogenic shock Acute kidney injury Diabetes mellitus Based on my assessment of this patient, this patient meets a high complexity level of care. Patient has an acute diagnosis of non-ST elevation NH, acute hypoxic respiratory failure secondary to pulmonary edema and cardiogenic shock that poses a threat to life or bodily function. Impella device discontinued on 09/09. Lasix 40 mg IV twice a day. Daily monitoring of renal function as lasix can be nephrotoxic. Continue aspirin 81 mg by mouth daily, Lipitor 40 mg by mouth daily and Brilinta 90 mg by mouth twice a day. Levophed currently running at 0.04 mics per kilo per hour. Attempt to wean. Pulmonology and cardiology on board. Prognosis is guarded. I have reviewed the following senior solutions workflow consultant notes: Pulmonology note, cardiology note, cardiac cath note reviewed. I have reviewed the results of the following tests: CBC, BMP, ABG reviewed as above. I have ordered the following tests: I have discussed the care of this patient with the following independent historian: I have independently interpreted the following test below: Chest x-ray reviewed as above. I have discussed the management of this patient with the following physician: Objective - Vital Signs Vital signs: Vital Signs Temp 98.4 F 09/10/22 12:15 Pulse 75 09/10/22 12:30 Resp 21 09/10/22 12:30 BP 98/60 09/09/22 11:00 Pulse Ox 97 09/10/22 12:30 FiO2 40 09/10/22 12:15 Intake & Output 09/09/22 09/10/22 09/10/22 18:59 06:59 18:59 Intake Total 1329.865 752.581 602.436 Output Total 825 615 655 Balance 504.865 137.581 -52.564 Weight 85.1 kg Intake: IV 1135 266 182 Magnesium Sulfate-D5w Pmx 100 1 gm In Dextrose/Water 1 100ml.bag @ 100 mls/hr IVPB Q1H [facility] Rx#: [id number] Potassium Chloride 20 meq 150 In Water For Injection 1 100ml.bag @ 50 mls/hr IVPB Q2H [facility] Rx#: [id number] Sodium Chloride 0.9% 1, 100 140 000 ml @ 20 mls/hr IV . Q24H [facility] Rx#:[id number] Sodium Chloride 0.9% 1, 525 000 ml @ 75 mls/hr IV . [id number] [facility] Rx#:[id number] Sodium Chloride 0.9% 500 250 ml 250 ml @ 250 mls/hr IV .Q1H ONE Rx#:[id number] pressure bag 60 66 42 Intake, IV Titration 194.865 266.581 160.436 Amount Heparin Sod,Pork in 0.45% 135.859 NaCl 25,000 unit In 0.45 % NaCl 1 250ml.bag @ 12 UNITS/KG/HR 9.798 mls/hr IV .Q24H [facility] Rx#: [id number] Norepinephrine 4 mg In 59.006 87.774 Sodium Chloride 0.9% 250 ml @ 0.03 MCG/KG/MIN 9. 332 mls/hr IV .Q24H [facility] Rx#:[id number] propofoL 1,000 mg In 178.807 160.436 Empty Bag 1 bag @ 15 MCG/ KG/MIN 7.348 mls/hr IV . [id number] [facility] Rx#:[id number] Tube Feeding 160 200 Other 60 60 Output: Urine 825 615 655 Other: Voiding Method Indwelling Catheter Indwelling Catheter Indwelling Catheter ABP, PAP, CO, CI - Last Documented Arterial Blood Pressure 115/52 - Labs CBC & Chem 7: 09/10/22 04:02 09/10/22 04:02 Labs: Abnormal Lab Results - Last 24 Hours (Table) 09/09/22 09/09/22 09/09/22 Range/Units 17:04 17:04 17:25 RBC 3.61 L (4.30-5.90) m/uL Hgb 10.7 L (13.0-17.5) gm/dL Hct 32.3 L (39.0-53.0) % Lymphocytes # (1.0-4.8) k/uL ABG pH (7.35-7.45) ABG pCO2 (35-45) mmHg ABG pO2 (83-108) mmHg ABG O2 Saturation (94-97) % Sodium (137-145) mmol/L Potassium 3.3 L (3.5-5.1) mmol/L BUN (9-20) mg/dL Glucose (74-99) mg/dL POC Glucose (mg/dL) (70-110) mg/dL Calcium (8.4-10.2) mg/dL Lactate Dehydrogenase (120-246) U/L Crossmatch See Detail 09/09/22 09/09/22 09/09/22 Range/Units 19:35 19:35 23:31 RBC 3.51 L (4.30-5.90) m/uL Hgb 10.5 L (13.0-17.5) gm/dL Hct 31.6 L (39.0-53.0) % Lymphocytes # (1.0-4.8) k/uL ABG pH (7.35-7.45) ABG pCO2 (35-45) mmHg ABG pO2 (83-108) mmHg ABG O2 Saturation (94-97) % Sodium (137-145) mmol/L Potassium (3.5-5.1) mmol/L BUN (9-20) mg/dL Glucose (74-99) mg/dL POC Glucose (mg/dL) 222 H (70-110) mg/dL Calcium (8.4-10.2) mg/dL Lactate Dehydrogenase 900 H (120-246) U/L Crossmatch 09/10/22 09/10/22 09/10/22 Range/Units 04:02 04:02 05:44 RBC 3.28 L (4.30-5.90) m/uL Hgb 9.6 L (13.0-17.5) gm/dL Hct 29.4 L (39.0-53.0) % Lymphocytes # 0.8 L (1.0-4.8) k/uL ABG pH (7.35-7.45) ABG pCO2 (35-45) mmHg ABG pO2 (83-108) mmHg ABG O2 Saturation (94-97) % Sodium 134 L (137-145) mmol/L Potassium (3.5-5.1) mmol/L BUN 23 H (9-20) mg/dL Glucose 236 H (74-99) mg/dL POC Glucose (mg/dL) 267 H (70-110) mg/dL Calcium 7.1 L (8.4-10.2) mg/dL Lactate Dehydrogenase (120-246) U/L Crossmatch 09/10/22 09/10/22 Range/Units 06:10 11:42 RBC (4.30-5.90) m/uL Hgb (13.0-17.5) gm/dL Hct (39.0-53.0) % Lymphocytes # (1.0-4.8) k/uL ABG pH 7.46 H (7.35-7.45) ABG pCO2 31 L (35-45) mmHg ABG pO2 126 H (83-108) mmHg ABG O2 Saturation 99.1 H (94-97) % Sodium (137-145) mmol/L Potassium (3.5-5.1) mmol/L BUN (9-20) mg/dL Glucose (74-99) mg/dL POC Glucose (mg/dL) 296 H (70-110) mg/dL Calcium (8.4-10.2) mg/dL Lactate Dehydrogenase (120-246) U/L Crossmatch Microbiology - Last 24 Hours (Table) 09/07/22 17:14 Gram Stain - Final Sputum Sputum Culture - Final
[2022-09-10 17:22] LABS: Glucose,Whole Blood 258 mg/dL (70-110)
[2022-09-10] MEDS: SODIUM CHLORIDE 0.9% 1,000 ML IV SCH (18:27)
[2022-09-10 23:46] LABS: Glucose,Whole Blood 305 mg/dL (70-110)
[2022-09-11] MEDS: INSULIN ASPART (NovoLOG) 100 UNIT/ML VIAL SQ SCH ×8 (00:27→21:42)
[2022-09-11] MEDS: fentaNYL (PF) 50 MCG/ML 2 ML AMP IVP PRN ×2 (03:06→10:01)
[2022-09-11] MEDS: IPRATROPIUM-ALBUTEROL 3 ML NEB INHALATION SCH ×5 (04:11→20:22)
[2022-09-11 04:59] LABS: Basophils % (A) 0 %; Eosinophils % (A) 1 %; HCT 29.2 % (39.0-53.0); HGB 9.4 gm/dL (13.0-17.5); Lymphocytes # (A) 1.1 k/uL (1.0-4.8); Lymphocytes % (A) 13 %; MCH 29.2 pg (25.0-35.0); MCHC 32.1 g/dL (31.0-37.0); MCV 90.9 fL (80.0-100.0); Monocytes # (A) 0.7 k/uL (0-1.0); Monocytes % (A) 9 %; Neutrophils # (A) 6.2 k/uL (1.3-7.7); Neutrophils % (A) 76 %; Platelet Count 177 k/uL (150-450); RBC 3.21 m/uL (4.30-5.90); RDW 14.7 % (11.5-15.5); WBC 8.1 k/uL (3.8-10.6)
[2022-09-11 05:12] LABS: Potassium 3.5 mmol/L (3.5-5.1)
[2022-09-11 05:13] LABS: African American GFR (CKD) >90 (>60 ml/min/1.73 sqM); Anion Gap 4 mmol/L; Blood Urea Nitrogen 19 mg/dL (9-20); Calcium 7.3 mg/dL (8.4-10.2); Carbon Dioxide 24 mmol/L (22-30); Chloride 105 mmol/L (98-107); Glucose 283 mg/dL (74-99); Magnesium 2.1 mg/dL (1.6-2.3); Non-African American GFR(CKD) 87 (>60 ml/min/1.73 sqM); Sodium 133 mmol/L (137-145)
[2022-09-11] MEDS ORDERED: Potassium Replacement Protocol 1 EACH MISC MISCELLANE PRN (06:01)
[2022-09-11 06:07] LABS: ABG Base Excess 0.3 mmol/L; ABG HCO3 24 mmol/L (21-25); ABG Oxygen Saturation 98.8 % (94-97); ABG PCO2 35 mmHg (35-45); ABG PH 7.45 (7.35-7.45); ABG PO2 128 mmHg (83-108); ABG TCO2 25 mmol/L (19-24); Allen Test Performed? Yes
[2022-09-11 06:08] LABS: Glucose,Whole Blood 315 mg/dL (70-110)
[2022-09-11] MEDS: POTASSIUM BICARBONATE/CIT AC 20 MEQ TABLET.EFF NG-TUBE SCH ×2 (06:23→08:18)
[2022-09-11 06:45] LABS: Glucose,Whole Blood 326 mg/dL (70-110)
--- NOTE | 2022-09-11 06:49 | XR ---
EXAMINATION TYPE: XR chest 1V portable DATE OF EXAM: 09/11/2022 6:16 AM COMPARISON: Chest radiographs from TECHNIQUE: XR chest 1V portable . CLINICAL INDICATION:Male, 67 years old with history of Tube placement; FINDINGS: Lungs/Pleura: Blunting the left costophrenic angle. No pneumothorax. Similar right basilar patchy air space opacity. Pulmonary vascularity: Unremarkable. Heart/mediastinum: Cardiomediastinal silhouette is unremarkable. Musculoskeletal: No acute osseous pathology. Other findings: None Lines/Tubes: Endotracheal tube is in stable position. Nasogastric tube with its distal tip and side-port projecting under the diaphragm. Left internal jugular central venous catheter with distal tip at the cavoatrial junction. IMPRESSION: 1. Stable support lines and tubes. 2. Small left pleural effusion with similar right basilar patchy airspace opacity.
[2022-09-11] MEDS ORDERED: INSULIN DETEMIR (LEVEMIR) 100 UNIT/ML SYR SQ SCH (07:00)
[2022-09-11] MEDS: CHLORHEXIDINE GLUCONATE 15 ML CUP MUCOUS MEM SCH (08:17)
[2022-09-11] MEDS: FUROSEMIDE 10 MG/ML 4 ML VIAL IV SCH ×2 (08:17→21:45)
[2022-09-11] MEDS: FAMOTIDINE 20 MG/2 ML VIAL IV SCH ×2 (08:17→21:45)
[2022-09-11] MEDS: ATORVASTATIN 40 MG TAB PO SCH (08:18)
[2022-09-11] MEDS: SPIRONOLACTONE 25 MG TAB PO SCH (08:18)
[2022-09-11] MEDS: ASPIRIN 81 MG PO SCH (08:18)
[2022-09-11] MEDS: TICAGRELOR 90 MG TAB PO SCH ×2 (08:18→21:46)
[2022-09-11] MEDS: SODIUM CHLORIDE 0.9% 1,000 ML IV SCH (11:49)
--- NOTE | 2022-09-11 11:53 | PN ---
PROGRESS NOTE SUBJECTIVE: Neo is a 67-year-old gentleman, who was admitted to hospital with hypertensive emergency, had [id number] elevation AK, intubated on vent, underwent cardiac catheterization and angioplasty with stent placement of LAD and also had an Impella device placed. He had a postoperative left groin hematoma and is currently intubated on vent and in the ICU, and Levophed has just been stopped. They are trying to wean and extubate him today. His echocardiogram showed an ejection fraction of 20% to 25%, and he has ischemic cardiomyopathy. OBJECTIVE: GENERAL: The patient is intubated and vented. VITAL SIGNS: Heart rate is 80 beats per minute, blood pressure is 110/46, respiratory rate is 14, O2 saturation is 96%. NECK: There is no jugular venous distention. CHEST: Reveals diminished air entry at the bases. HEART: Reveals first and second heart sounds. No gallop. No murmur. ABDOMEN: Soft. EXTREMITIES: Did not reveal any edema. LABORATORY DATA: Show a hemoglobin of 9.4, platelet count is 177. Potassium is 3.5 and creatinine is 0.9. ASSESSMENT: 1. Cardiogenic shock. 2. Vent-requiring respiratory failure. 3. Coronary artery disease, status post angioplasty of left anterior descending. PLAN: The patient will continue current medications. I am going to start him on metoprolol 12.5 b.i.d., and add an HERIBERTO inhibitor if blood pressure tolerates it. His urine output is poor. He will continue the Lasix that he is on. MMODL / IJN: [id number] /
[2022-09-11 11:57] LABS: Glucose,Whole Blood 308 mg/dL (70-110)
--- NOTE | 2022-09-11 12:54 | P.PN ---
Subjective Progress Note Date: 09/11/22 Principal diagnosis: Acute cardiogenic shock and pulmonary edema with acute hypoxic respiratory failure A 67-year-old male patient, came into the emergency department because of w orsening shortness of breath. The patient lives in [facility] and he has a primary care physician out of [facility]. The patient was visiting here in [place] and became progressively more short of breath. No significant cough or sputum production. No hemoptysis. No pleurisy. No angina. No palpitations. He is known to have CAD and he has undergone stenting many years back and she is not seeing a doormaker on a regular basis. He is known to have hypertension. He is an ex-smoker. In the emergency, the patient was found to be hypertensive and he was diagnosed having an acute hypertensive emergency with secondary pulmonary edema. EKG showed some nonspecific ST segment changes in the lateral leads and anteroseptal Q waves. The cardiac rhythm was sinus. The chest x-ray was consistent with pulmonary edema. The patient's initial troponin came back at 12.5. His lactic acid level was at 5.6. ProBNP level was 2930. There was done was 12.8 with hemoglobin 14.3 and a platelet count of 276. The patient was started on IV heparin. The patient was started on nitroglycerin drip. Blood pressures under better control. Subsequently, the patient was also placed on a BiPAP at a pressure of 12/5 cm of water with an FiO2 of 50%. The current pulse ox is 97%. Most recent BP is 140/97 and a nitroglycerin is being titrated accordingly. He was given also Lasix. He is producing adequate amount of urine output. The chest x-ray showed coarse interstitial changes bilaterally. Most likely interstitial edema/CHF. On today's evaluation 09/07/2002, the patient is intubated on a mechanical ventilator. Note that after my initial evaluation, the patient's condition decompensated and the patient went into acute hypoxic respiratory failure and he was in significant amount of respiratory distress in the emergency department. Recommended intubation mechanical ventilation. The triple-lumen catheter was also inserted in the emergency. His chest x-ray was consistent with pulmonary edema. Following intubation, the patient was kept on propofol which is running at 40 mcg/kg/m. He remains on IV heparin. Troponins peaked at 27.7 consistent with an acute non-ST segment elevation myocardial infarction. Echocardiogram showed severe systolic heart failure and the patient has impaired left ventricular ejection fraction based on a limited echocardiogram and the ejection fraction was in the order of 20%. There was also mild mitral regurgitation and the right ventricular systolic pressure was around 51. This morning, the patient is quite stable on a mechanical ventilator. He is on assist control at the rate of 26 with a tidal volume of 450 and FiO2 of 40% with a PEEP of 5. His blood gases showed pH of 7.5 with a pCO2 of 29 and pO2 124 and this was on FiO2 of 50% and based on that FiO2 is up to 140. His chest x-ray still consistent with pulmonary edema. He remains on IV heparin. Is also on pressors were norepinephrine running at 0.08 microvascular kilogram per minute. He is also on Lasix drip at 5 mg an hour. His urine output is in order of 700 mL overnight. As such, the patient has not been diuresing aggressively. His creatinine is up to 1.4 consistent with an acute kidney injury with a BUN of 24. Sodium is at 135, the results was at 13 with a hemoglobin 12.4 and a platelet count of 260. Cardiology was made aware the patient is going to undergo a cardiac catheterization with possibly an Impala insertion. Cardiac rhythm is sinus. The patient on aspirin. The patient on IV heparin. The patient is on Levemir insulin 10 units and he is also taken a slight scale insulin coverage. Condition is still critical. He remains in cardiogenic shock. He is post acute NSTEMI. On today's evaluation of 09/09/2022, the patient remains intubated on a mechanical ventilator. The patient was taken to the cath laboratory technician yesterday and card iac catheterization was done. The patient had significant elevation of the left ventricular end-diastolic pressure which was in the order of 30 mmHg. The patient was also found to have severe triple-vessel disease. RCA was diffusely diseased in order of 99% in the proximal portion, there was also 99% distal portion occlusion, the LAD was of a large caliber and it had a lesion in the proximal portion in order of 99%, there was a large diagonal branch that had a proximal lesion of 80-90%, th circumflex also had an 80% lesion. The patient was in Impella which is currently at the AP 6 flow at 2.7 L/m. His urine output is improved. His creatinine is improved. In fact, his creatinine is down to 1.4 with a BUN of 25. I was told by the doormaker that immediately after the insertion of the device, his left and end-diastolic pressures dropped. The plan is to unload the LV at this point in time. The patient remains on a mechanical ventilator, assist control of 26, tidal volume of 450, FiO2 of 40% with a PEEP of 5. Blood gas from this morning shows a pH of 7.49 with a pCO2 of 30 and pO2 of 130. Chest x-ray still showing evidence of CHF and pulmonary edema. There is evidence of left lower lobe atelectasis and bilateral pleural effusions slightly worse on the left. He is out of is currently at 8.1 with a hemoglobin of 11.9 and platelet count of 192. The patient is on IV heparin. The patient on aspirin. The patient is also requiring pressors and norepinephrine is running at 0.03 mcg/kg/m. He has a left IJ triple-lumen catheter in place. He'll be started on enteral feeding for nutritional support. Is on Lasix drip at 5 mg an hour. On today's evaluation of 09/10/2022, the patient remains intubated on a mechanical ventilator. The patient has severe multivessel coronary artery disease, he is status post acute non-ST segment elevation myocardial infarction and cardiogenic shock requiring intubation mechanical ventilation. He underwent cardiac catheterization and Impella insertion, and subsequently was taken back to the Social Services Director yesterday for stenting of the LAD. The procedure was done and subsequently the patient developed a left groin hematoma. The patient was taken to the Social Services Director. No further intervention was done. The Impala was removed. The patient was brought back to the ICU. The patient remains on a mechanical ventilator. The patient is currently on assist control mode at a rate of 20, tidal volume of 450, FiO2 of 40% and a PEEP of 5. The blood gas from today shows a pH of 7.46 with a pCO2 of 31 and pO2 126. He is currently on a comb ination of aspirin and Plavix. IV heparin has been discontinued. He was taken off the Lasix drip and currently is receiving Lasix 40 mg IV every 12 hours. He remains on low-dose of norepinephrine at 0.03 mcg/kg/m. He was also started on therapeutic for nutritional support. Renal function is stable. Hemoglobin is down to 9.6. Sodium is at 134 with a potassium level of 3.7, BUN is 23 with a c reatinine of 0.9. Reevaluated today on 09/11/2022, patient remains in the ICU, intubated and mechanically ventilated he is now on assist control rate of 20 tidal volume 450 FiO2 40% and PEEP of 5. ABG showed a pO2 of 128 pCO2 35 pH of 7.45. Remains on Lasix at 40 mg IV push every 12 hours, his norepinephrine was discontinued this morning. Patient is on propofol at 50 mcg/kg/m, he is receiving vital AF at 45 mL per hour. Last echocardiogram showed ejection fraction of less than 20%. His Impala device is removed already 2 days ago. Chest x-ray showed small left pleural effusion and patchy opacity right base. Labs today are unremarkable including CBC and basic metabolic profile, normal renal profile is noted. Patient will be given today for weaning after holding propofol, we will likely place the patient on a trial of pressure support and CPAP. If tolerated may even proceed to extubating the patient today. Objective - Vital Signs Vital signs: Vital Signs Temp 97.6 F 09/11/22 08:00 Pulse 100 09/11/22 12:14 Resp 14 09/11/22 10:00 BP 98/60 09/09/22 11:00 Pulse Ox 96 09/11/22 10:00 FiO2 40 09/11/22 11:02 Intake & Output 09/10/22 09/11/22 09/11/22 18:59 06:59 18:59 Intake Total 4490.823 1821.627 486 Output Total 855 1480 645 Balance 245.644 -271.373 -159 Weight 91 kg 91 kg Intake: IV 252 312 116 Sodium Chloride 0.9% 1, 180 240 80 000 ml @ 20 mls/hr IV . Q24H [facility] Rx#:[id number] pressure bag 72 72 36 Intake, IV Titration 378.644 266.627 100 Amount Norepinephrine 4 mg In 118.208 66.627 Sodium Chloride 0.9% 250 ml @ 0.03 MCG/KG/MIN 9. 332 mls/hr IV .Q24H [facility] Rx#:[id number] propofoL 1,000 mg In 260.436 200 100 Empty Bag 1 bag @ 15 MCG/ KG/MIN 7.348 mls/hr IV . [id number] [facility] Rx#:[id number] Tube Feeding 380 510 270 Other 90 120 Output: Urine 855 1480 645 Other: Voiding Method Indwelling Catheter Indwelling Catheter Indwelling Catheter ABP, PAP, CO, CI - Last Documented Arterial Blood Pressure 110/46 - Exam Physical Exam: Revealed a 67-year-old white male in no distress intubated and mechanically ventilated and sedated. Head: Atraumatic, normocephalic. HEENT:[Neck is supple.] [No neck masses.] [No thyromegaly.] [No JVD.] Chest: [Minimal crackles at the bases no rhonchi and no wheezes] Cardiac Exam: [Normal S1 and S2, no S3 gallop, no murmur.] Abdomen: [Soft, nontender, no megaly, no rebound, no guarding, normal bowel sounds.] Extremities: [No clubbing, 1+ bipedal edema, no cyanosis.] Neurological Exam: Could not assess patient is sedated, on mechanical ventilation. Psychiatric could not assess. Skin: No rashes. - Labs CBC & Chem 7: 09/11/22 04:50 09/11/22 04:50 Labs: Abnormal Lab Results - Last 24 Hours (Table) 09/09/22 09/10/22 09/10/22 Range/Units 17:25 17:20 23:45 RBC (4.30-5.90) m/uL Hgb (13.0-17.5) gm/dL Hct (39.0-53.0) % ABG pO2 (83-108) mmHg ABG Total CO2 (19-24) mmol/L ABG O2 Saturation (94-97) % Sodium (137-145) mmol/L Glucose (74-99) mg/dL POC Glucose (mg/dL) 258 H 305 H (70-110) mg/dL Calcium (8.4-10.2) mg/dL Crossmatch See Detail 09/11/22 09/11/22 09/11/22 Range/Units 04:50 04:50 05:59 RBC 3.21 L (4.30-5.90) m/uL Hgb 9.4 L (13.0-17.5) gm/dL Hct 29.2 L (39.0-53.0) % ABG pO2 128 H (83-108) mmHg ABG Total CO2 25 H (19-24) mmol/L ABG O2 Saturation 98.8 H (94-97) % Sodium 133 L (137-145) mmol/L Glucose 283 H (74-99) mg/dL POC Glucose (mg/dL) (70-110) mg/dL Calcium 7.3 L (8.4-10.2) mg/dL Crossmatch 09/11/22 09/11/22 09/11/22 Range/Units 06:06 06:44 11:56 RBC (4.30-5.90) m/uL Hgb (13.0-17.5) gm/dL Hct (39.0-53.0) % ABG pO2 (83-108) mmHg ABG Total CO2 (19-24) mmol/L ABG O2 Saturation (94-97) % Sodium (137-145) mmol/L Glucose (74-99) mg/dL POC Glucose (mg/dL) 315 H 326 H 308 H (70-110) mg/dL Calcium (8.4-10.2) mg/dL Crossmatch Microbiology - Last 24 Hours (Table) 09/07/22 17:14 Gram Stain - Final Sputum Sputum Culture - Final Assessment and Plan Assessment: Impression: Acute cardiogenic shock/pulmonary edema Acute non-ST elevation myocardial infarction Triple-vessel coronary artery disease Left groin hematoma, stable related to cardiac catheterization Acute hypoxic respiratory failure secondary to above History of benign essential hypertension Acute kidney injury, likely cardiorenal in nature improved History of underlying coronary artery disease and previous stent placement Acute blood loss anemia secondary to left groin hematoma, expected outcome of cardiac catheterization Recommendation: Continue ventilatory support, however will assess patient for possible weaning and may give the patient a weaning trial today. Continue aspirin and Plavix and continue to hold heparin Continue Lasix 40 mg every 12 hours Nutritional support/enteral feeding Weaning parameters while the patient is off propofol. Continue close monitoring and treatment of his sugar/utilizing insulin. Patient remains critically ill. Continue GI and DVT prophylaxis Depending on how he does off sedation, and however his weaning parameters look like, may consider a weaning trial after pressure support and CPAP. Patient remains critically ill, We will continue to follow. Critical care time is over 30 Time with Patient: Greater than 30
--- NOTE | 2022-09-11 16:24 | P.PN ---
Subjective Progress Note Date: 09/11/22 Patient is a 67-year-old male with a history of coronary artery disease status post stenting many years ago, diabetes mellitus type 2 currently not on any medications, and osteoarthritis who presented to the ER via EMS for complaints of increasing shortness of breath. On arrival to the ER he underwent an extensive evaluation. His pulse was 118, respirations 32, blood pressure 163/114, and O2 sat was 85% on CPAP. Laboratory analysis was remarkable for white blood cell count of 12.8, sodium 135, carbon dioxide 13, glucose 186, lactic acid 5.6, total bilirubin 1.6, AST 124, ALT 55, troponin 12.5, and BNP 2930. Chest x-ray showed findings suspicious for pulmonary fibrosis with superimposed left perihilar infiltrate and interstitial pneumonitis. 09/09 Patient was seen and examined. Patient currently sedated on the vent. Vent settings rate 26, tidal volume of 450, FiO2 of 40% with a PEEP of 5. Currently on propofol. Lasix drip discontinued and patient started on 40 mg IV. Heparin drip running at 12 units per kilogram per hour. Levophed running at 0.02 mics per kilogram per hour. Impella device inserted successfully on 09/08. Cardiac cath done yesterday showed severe triple vessel disease. Plans for cardiac cath today with intervention. CBC shows hemoglobin of 11.9. APTT is 49.1. ABG shows pH of 7.49 and pCO2 of 30. BMP shows sodium of 134, BUN of 24, calcium is 7.1 and glucose of 217. Chest x-ray shows pulmonary edema. 09/10 Patient was seen and examined. Sedated on the vent. Vent settings rate of 20, tidal volume of 450, FiO2 of 40% and a PEEP of 5. Underwent cardiac cath yesterday with stenting to the LAD. Patient developed a left groin hematoma after cardiac cath, taken back to the Public Relations Representative and Impella was removed. Today, he was noted to have unequal pupils and stat CT head was ordered which was negative for acute intracranial process. CBC shows hemoglobin 9.6. ABG shows pH is 7.46 and pCO2 of 31. BMP shows sodium 134, BUN of 23, glucose of 236 and calcium is 7.1. Chest x-ray shows bibasilar opacities and pleural effusion. 09/11 Patient was seen and examined. Sedated on the vent. Vent settings rate of 20, tidal volume of 450, FiO2 of 40% and a PEEP of 5. ABG showed a pO2 of 128 pCO2 35 pH of 7.45. Hopeful plans for extubation today. CBC shows Hg of 9.4. ABG shows pH 7.45, pCO2 of 35. BMP shows Na 133, glucose of 283 and Ca 7.3. POC glucose running in the 300s. Chest x-ray shows persistent bibasilar opacities and pleural effusion. General: Sedated and intubated, appears at stated age Derm: warm, dry Head: atraumatic, normocephalic, symmetric Eyes: no lid lag, anicteric sclera, uneven pupils Cardiovascular: S1S2 reg, no murmur Lungs: Coarse breath sounds bilateral, no rhonchi, no rales , no accessory muscle use Ext: no gross muscle atrophy, no edema, no contractures, L groin hematoma Neuro: Unable to assess Psych: Unable to assess Non-STEMI L groin hematoma Acute hypoxic respiratory failure Cardiogenic pulmonary edema Cardiomyopathy, suspect ischemic Cardiogenic shock Acute kidney injury Diabetes mellitus Based on my assessment of this patient, this patient meets a high complexity level of care. Patient has an acute diagnosis of non-ST elevation [place], acute hypoxic respiratory failure secondary to pulmonary edema and cardiogenic shock that poses a threat to life or bodily function. Impella device discontinued on 09/09. Lasix 40 mg IV twice a day. Levemir increased to 30 units QD, Novolog increased to 10 units TID. Daily monitoring of renal function as lasix can be nephrotoxic. Continue aspirin 81 mg by mouth daily, Lipitor 40 mg by mouth daily and Brilinta 90 mg by mouth twice a day. Levophed drip discontinued. Pulmonology and cardiology on board. Prognosis is guarded. I have reviewed the following exchange underwriting consultant notes: Pulmonology note, cardiology note reviewed. I have reviewed the results of the following tests: CBC, BMP, ABG, CXR reviewed as above. I have ordered the following tests: I have discussed the care of this patient with the following independent historian: I have independently interpreted the following test below: Chest x-ray reviewed as above. I have discussed the management of this patient with the following physician: Objective - Vital Signs Vital signs: Vital Signs Temp 98.6 F 09/11/22 12:00 Pulse 90 09/11/22 14:00 Resp 14 09/11/22 14:00 BP 98/60 09/09/22 11:00 Pulse Ox 93 L 09/11/22 14:00 FiO2 40 09/11/22 12:00 Intake & Output 09/10/22 09/11/22 09/11/22 18:59 06:59 18:59 Intake Total 6624.961 6281.627 518 Output Total 855 1480 895 Balance 245.644 -271.373 -377 Weight 91 kg 91 kg Intake: IV 252 312 148 Sodium Chloride 0.9% 1, 180 240 100 000 ml @ 20 mls/hr IV . Q24H SANDRA Rx#:[id number] pressure bag 72 72 48 Intake, IV Titration 378.644 266.627 100 Amount Norepinephrine 4 mg In 118.208 66.627 Sodium Chloride 0.9% 250 ml @ 0.03 MCG/KG/MIN 9. 332 mls/hr IV .Q24H [facility]DRA Rx#:[id number] propofoL 1,000 mg In 260.436 200 100 Empty Bag 1 bag @ 15 MCG/ KG/MIN 7.348 mls/hr IV . [id number] SANDRA Rx#:[id number] Tube Feeding 380 510 270 Other 90 120 Output: Urine 855 1480 895 Other: Voiding Method Indwelling Catheter Indwelling Catheter Indwelling Catheter ABP, PAP, CO, CI - Last Documented Arterial Blood Pressure 113/52 - Labs CBC & Chem 7: 09/11/22 04:50 09/11/22 04:50 Labs: Abnormal Lab Results - Last 24 Hours (Table) 09/09/22 09/10/22 09/10/22 Range/Units 17:25 17:20 23:45 RBC (4.30-5.90) m/uL Hgb (13.0-17.5) gm/dL Hct (39.0-53.0) % ABG pO2 (83-108) mmHg ABG Total CO2 (19-24) mmol/L ABG O2 Saturation (94-97) % Sodium (137-145) mmol/L Glucose (74-99) mg/dL POC Glucose (mg/dL) 258 H 305 H (70-110) mg/dL Calcium (8.4-10.2) mg/dL Crossmatch See Detail 09/11/22 09/11/22 09/11/22 Range/Units 04:50 04:50 05:59 RBC 3.21 L (4.30-5.90) m/uL Hgb 9.4 L (13.0-17.5) gm/dL Hct 29.2 L (39.0-53.0) % ABG pO2 128 H (83-108) mmHg ABG Total CO2 25 H (19-24) mmol/L ABG O2 Saturation 98.8 H (94-97) % Sodium 133 L (137-145) mmol/L Glucose 283 H (74-99) mg/dL POC Glucose (mg/dL) (70-110) mg/dL Calcium 7.3 L (8.4-10.2) mg/dL Crossmatch 09/11/22 09/11/22 09/11/22 Range/Units 06:06 06:44 11:56 RBC (4.30-5.90) m/uL Hgb (13.0-17.5) gm/dL Hct (39.0-53.0) % ABG pO2 (83-108) mmHg ABG Total CO2 (19-24) mmol/L ABG O2 Saturation (94-97) % Sodium (137-145) mmol/L Glucose (74-99) mg/dL POC Glucose (mg/dL) 315 H 326 H 308 H (70-110) mg/dL Calcium (8.4-10.2) mg/dL Crossmatch
[2022-09-11 16:56] LABS: Glucose,Whole Blood 139 mg/dL (70-110)
[2022-09-11 17:45] LABS: Glucose,Whole Blood 151 mg/dL (70-110)
[2022-09-11 21:19] LABS: Glucose,Whole Blood 117 mg/dL (70-110)
[2022-09-11] MEDS: METOPROLOL TARTRATE 12.5 MG TAB PO SCH (21:46)
--- NOTE | 2022-09-11 22:39 | IR ---
EXAMINATION TYPE: IR angio extremity LT DATE OF EXAM: 09/11/2022 CLINICAL HISTORY: Hematoma. TECHNIQUE: Fluoroscopy. COMPARISON: None. FINDINGS: Fluoroscopic guidance was provided during angiogram procedure performed by Dr. Terry. A to neri of 66 seconds of fluoroscopic time was utilized during the procedure and 931 spot images was acqu ired. TOTAL DAP = 1.61 Gy x cm2 IMPRESSION: As Above.
[2022-09-11 23:52] LABS: Glucose,Whole Blood 137 mg/dL (70-110)
[2022-09-12 04:55] LABS: African American GFR (CKD) >90 (>60 ml/min/1.73 sqM); Anion Gap 8 mmol/L; Blood Urea Nitrogen 21 mg/dL (9-20); Carbon Dioxide 26 mmol/L (22-30); Chloride 103 mmol/L (98-107); Glucose 108 mg/dL (74-99); Non-African American GFR(CKD) 82 (>60 ml/min/1.73 sqM); Potassium 3.4 mmol/L (3.5-5.1); Sodium 137 mmol/L (137-145)
[2022-09-12 05:05] LABS: Basophils % (A) 0 %; Eosinophils # (A) 0.1 k/uL (0-0.7); Eosinophils % (A) 1 %; HCT 29.3 % (39.0-53.0); HGB 9.5 gm/dL (13.0-17.5); Lymphocytes # (A) 1.5 k/uL (1.0-4.8); Lymphocytes % (A) 17 %; MCH 28.6 pg (25.0-35.0); MCHC 32.5 g/dL (31.0-37.0); MCV 87.8 fL (80.0-100.0); Monocytes # (A) 0.7 k/uL (0-1.0); Monocytes % (A) 8 %; Neutrophils # (A) 6.3 k/uL (1.3-7.7); Neutrophils % (A) 72 %; Platelet Count 193 k/uL (150-450); RBC 3.34 m/uL (4.30-5.90); RDW 14.6 % (11.5-15.5); WBC 8.8 k/uL (3.8-10.6)
[2022-09-12 06:05] LABS: Glucose,Whole Blood 109 mg/dL (70-110)
[2022-09-12] MEDS: INSULIN DETEMIR (LEVEMIR) 100 UNIT/ML SYR SQ SCH (07:08)
[2022-09-12] MEDS: INSULIN ASPART (NovoLOG) 100 UNIT/ML VIAL SQ SCH ×7 (07:10→20:06)
[2022-09-12] MEDS: SPIRONOLACTONE 25 MG TAB PO SCH (09:31)
[2022-09-12] MEDS: ATORVASTATIN 40 MG TAB PO SCH (09:31)
[2022-09-12] MEDS: TICAGRELOR 90 MG TAB PO SCH ×2 (09:31→20:06)
[2022-09-12] MEDS: FAMOTIDINE 20 MG/2 ML VIAL IV SCH ×2 (09:31→20:06)
[2022-09-12] MEDS: FUROSEMIDE 10 MG/ML 4 ML VIAL IV SCH ×2 (09:31→20:06)
[2022-09-12] MEDS: POTASSIUM BICARBONATE/CIT AC 20 MEQ TABLET.EFF PO SCH ×2 (09:32→09:34)
[2022-09-12] MEDS: METOPROLOL TARTRATE 12.5 MG TAB PO SCH ×2 (09:32→20:06)
[2022-09-12] MEDS: ASPIRIN 81 MG PO SCH (09:32)
--- NOTE | 2022-09-12 09:41 | XR ---
EXAMINATION TYPE: XR chest 1V portable DATE OF EXAM: 09/12/2022 9:35 AM COMPARISON: Chest radiographs from TECHNIQUE: XR chest 1V portable Frontal view of the chest. CLINICAL INDICATION:Male, 67 years old with history of s/p extubation yesterday; FINDINGS: Lungs/Pleura: There is no evidence of pleural effusion, focal consolidation, or pneumothorax. Pulmonary vascularity: Unremarkable. Heart/mediastinum: Cardiomediastinal silhouette is unremarkable. Musculoskeletal: No acute osseous pathology. Other findings: None Lines/Tubes: Interval removal of the endotracheal tube. Interval removal of the enteric tube, Left internal jugular central venous catheter with distal tip at the superior vena cava. IMPRESSION: Stable exam status post extubation.
[2022-09-12] MEDS: IPRATROPIUM-ALBUTEROL 3 ML NEB INHALATION SCH ×4 (09:57→21:32)
[2022-09-12 11:24] LABS: Glucose,Whole Blood 164 mg/dL (70-110)
[2022-09-12] MEDS ORDERED: ALPRAZolam 0.5 MG TAB PO PRN (11:53)
[2022-09-12] MEDS ORDERED: ALPRAZolam 0.25 MG TAB PO PRN (11:53)
[2022-09-12] MEDS ORDERED: NITROGLYCERIN SL TABS 0.4 MG TAB SUBLINGUAL PRN (11:53)
[2022-09-12] MEDS: SODIUM CHLORIDE 0.9% 1,000 ML IV SCH (12:22)
--- NOTE | 2022-09-12 12:35 | PN ---
PROGRESS NOTE SUBJECTIVE: This is a 67-year-old gentleman, who was admitted to hospital with acute myocardial infarction and cardiogenic shock, required angioplasty of the LAD, intubation for respiratory failure. He is doing better today, was extubated yesterday. Remains in sinus rhythm, stable hemodynamically. Does not have any chest pain and is not in overt heart failure. MEDICATIONS: The patient is currently on, 1. Aspirin. 2. Lipitor. 3. Lasix. 4. Insulin. 5. Lopressor. 6. Aldactone. 7. Brilinta. I will add an HERIBERTO inhibitor. OBJECTIVE: GENERAL: Comfortable at rest. VITAL SIGNS: Stable. CHEST: Reveals good air entry bilaterally. HEART: Reveals first and second heart sounds. No gallop. No murmur. ABDOMEN: Soft. EXTREMITIES: Did not reveal any edema. Peripheral pulses are felt. ASSESSMENT: 1. Cardiogenic shock. 2. Status post angioplasty of left anterior descending. PLAN: The patient will undergo angioplasty of the right coronary artery. MMODL / IJN: [id number] /
--- NOTE | 2022-09-12 12:52 | P.PN ---
Subjective Progress Note Date: 09/12/22 Principal diagnosis: Acute cardiogenic shock and pulmonary edema with acute hypoxic respiratory failure A 67-year-old male patient, came into the emergency department because of w orsening shortness of breath. The patient lives in [facility] and he has a primary care physician out of [facility]. The patient was visiting here in [place] and became progressively more short of breath. No significant cough or sputum production. No hemoptysis. No pleurisy. No angina. No palpitations. He is known to have CAD and he has undergone stenting many years back and she is not seeing a tourism radio presenter on a regular basis. He is known to have hypertension. He is an ex-smoker. In the emergency, the patient was found to be hypertensive and he was diagnosed having an acute hypertensive emergency with secondary pulmonary edema. EKG showed some nonspecific ST segment changes in the lateral leads and anteroseptal Q waves. The cardiac rhythm was sinus. The chest x-ray was consistent with pulmonary edema. The patient's initial troponin came back at 12.5. His lactic acid level was at 5.6. ProBNP level was 2930. There was done was 12.8 with hemoglobin 14.3 and a platelet count of 276. The patient was started on IV heparin. The patient was started on nitroglycerin drip. Blood pressures under better control. Subsequently, the patient was also placed on a BiPAP at a pressure of 12/5 cm of water with an FiO2 of 50%. The current pulse ox is 97%. Most recent BP is 140/97 and a nitroglycerin is being titrated accordingly. He was given also Lasix. He is producing adequate amount of urine output. The chest x-ray showed coarse interstitial changes bilaterally. Most likely interstitial edema/CHF. On today's evaluation 09/07/2002, the patient is intubated on a mechanical ventilator. Note that after my initial evaluation, the patient's condition decompensated and the patient went into acute hypoxic respiratory failure and he was in significant amount of respiratory distress in the emergency department. Recommended intubation mechanical ventilation. The triple-lumen catheter was also inserted in the emergency. His chest x-ray was consistent with pulmonary edema. Following intubation, the patient was kept on propofol which is running at 40 mcg/kg/m. He remains on IV heparin. Troponins peaked at 27.7 consistent with an acute non-ST segment elevation myocardial infarction. Echocardiogram showed severe systolic heart failure and the patient has impaired left ventricular ejection fraction based on a limited echocardiogram and the ejection fraction was in the order of 20%. There was also mild mitral regurgitation and the right ventricular systolic pressure was around 51. This morning, the patient is quite stable on a mechanical ventilator. He is on assist control at the rate of 26 with a tidal volume of 450 and FiO2 of 40% with a PEEP of 5. His blood gases showed pH of 7.5 with a pCO2 of 29 and pO2 124 and this was on FiO2 of 50% and based on that FiO2 is up to 140. His chest x-ray still consistent with pulmonary edema. He remains on IV heparin. Is also on pressors were norepinephrine running at 0.08 microvascular kilogram per minute. He is also on Lasix drip at 5 mg an hour. His urine output is in order of 700 mL overnight. As such, the patient has not been diuresing aggressively. His creatinine is up to 1.4 consistent with an acute kidney injury with a BUN of 24. Sodium is at 135, the results was at 13 with a hemoglobin 12.4 and a platelet count of 260. Cardiology was made aware the patient is going to undergo a cardiac catheterization with possibly an Impala insertion. Cardiac rhythm is sinus. The patient on aspirin. The patient on IV heparin. The patient is on Levemir insulin 10 units and he is also taken a slight scale insulin coverage. Condition is still critical. He remains in cardiogenic shock. He is post acute NSTEMI. On today's evaluation of 09/09/2022, the patient remains intubated on a mechanical ventilator. The patient was taken to the hoisting laborer yesterday and card iac catheterization was done. The patient had significant elevation of the left ventricular end-diastolic pressure which was in the order of 30 mmHg. The patient was also found to have severe triple-vessel disease. RCA was diffusely diseased in order of 99% in the proximal portion, there was also 99% distal portion occlusion, the LAD was of a large caliber and it had a lesion in the proximal portion in order of 99%, there was a large diagonal branch that had a proximal lesion of 80-90%, th circumflex also had an 80% lesion. The patient was in Impella which is currently at the AP 6 flow at 2.7 L/m. His urine output is improved. His creatinine is improved. In fact, his creatinine is down to 1.4 with a BUN of 25. I was told by the tourism radio presenter that immediately after the insertion of the device, his left and end-diastolic pressures dropped. The plan is to unload the LV at this point in time. The patient remains on a mechanical ventilator, assist control of 26, tidal volume of 450, FiO2 of 40% with a PEEP of 5. Blood gas from this morning shows a pH of 7.49 with a pCO2 of 30 and pO2 of 130. Chest x-ray still showing evidence of CHF and pulmonary edema. There is evidence of left lower lobe atelectasis and bilateral pleural effusions slightly worse on the left. He is out of is currently at 8.1 with a hemoglobin of 11.9 and platelet count of 192. The patient is on IV heparin. The patient on aspirin. The patient is also requiring pressors and norepinephrine is running at 0.03 mcg/kg/m. He has a left IJ triple-lumen catheter in place. He'll be started on enteral feeding for nutritional support. Is on Lasix drip at 5 mg an hour. On today's evaluation of 09/10/2022, the patient remains intubated on a mechanical ventilator. The patient has severe multivessel coronary artery disease, he is status post acute non-ST segment elevation myocardial infarction and cardiogenic shock requiring intubation mechanical ventilation. He underwent cardiac catheterization and Impella insertion, and subsequently was taken back to the Assistant Secretary yesterday for stenting of the LAD. The procedure was done and subsequently the patient developed a left groin hematoma. The patient was taken to the Assistant Secretary. No further intervention was done. The Impala was removed. The patient was brought back to the ICU. The patient remains on a mechanical ventilator. The patient is currently on assist control mode at a rate of 20, tidal volume of 450, FiO2 of 40% and a PEEP of 5. The blood gas from today shows a pH of 7.46 with a pCO2 of 31 and pO2 126. He is currently on a comb ination of aspirin and Plavix. IV heparin has been discontinued. He was taken off the Lasix drip and currently is receiving Lasix 40 mg IV every 12 hours. He remains on low-dose of norepinephrine at 0.03 mcg/kg/m. He was also started on therapeutic for nutritional support. Renal function is stable. Hemoglobin is down to 9.6. Sodium is at 134 with a potassium level of 3.7, BUN is 23 with a c reatinine of 0.9. Reevaluated today on 09/11/2022, patient remains in the ICU, intubated and mechanically ventilated he is now on assist control rate of 20 tidal volume 450 FiO2 40% and PEEP of 5. ABG showed a pO2 of 128 pCO2 35 pH of 7.45. Remains on Lasix at 40 mg IV push every 12 hours, his norepinephrine was discontinued this morning. Patient is on propofol at 50 mcg/kg/m, he is receiving vital AF at 45 mL per hour. Last echocardiogram showed ejection fraction of less than 20%. His Impala device is removed already 2 days ago. Chest x-ray showed small left pleural effusion and patchy opacity right base. Labs today are unremarkable including CBC and basic metabolic profile, normal renal profile is noted. Patient will be given today for weaning after holding propofol, we will likely place the patient on a trial of pressure support and CPAP. If tolerated may even proceed to extubating the patient today. Reevaluated today on 09/12/2022, patient was extubated yesterday, tolerated the extubation well, presently on 2 L nasal cannula, not in any distress. Patient has good urine output, remains on Lasix 40 mg IV push twice a day, continues to have a left IJ central line/triple-lumen catheter in place. Patient is not in any distress, and he denies shortness of breath cough or wheezing. Chest x-ray is relatively unremarkable today. CBC and basic metabolic profile are relat ively normal. Hence I plan to transfer the patient out of the ICU to a cardiac floor Objective - Vital Signs Vital signs: Vital Signs Temp 98.2 F 09/12/22 12:00 Pulse 87 09/12/22 12:00 Resp 20 09/12/22 12:00 BP 135/82 09/12/22 12:00 Pulse Ox 91 L 09/12/22 09:00 FiO2 40 09/11/22 16:00 Intake & Output 09/11/22 09/12/22 09/12/22 18:59 06:59 18:59 Intake Total 822 189 39 Output Total 1120 5485 505 Balance -298 -1496 -466 Weight 91 kg 88.5 kg Intake: IV 212 189 39 Sodium Chloride 0.9% 1, 140 120 30 000 ml @ 20 mls/hr IV . Q24H SANDRA Rx#:[id number] pressure bag 72 69 9 Intake, IV Titration 100 Amount propofoL 1,000 mg In 100 Empty Bag 1 bag @ 15 MCG/ KG/MIN 7.348 mls/hr IV . [id number] SANDRA Rx#:[id number] Oral 240 Tube Feeding 270 Output: Urine 1120 1685 505 Other: Voiding Method Indwelling Catheter Indwelling Catheter Indwelling Catheter ABP, PAP, CO, CI - Last Documented Arterial Blood Pressure 137/61 - Exam Physical Exam: Revealed a 67-year-old white male in no distress, on 2 L nasal cannulaple.] HEENT: [No neck masses.] [No thyromegaly.] [No JVD.] Chest: Symmetrical chest expansion clear throughout no crackles or rhonchi or wheezes cardiac Exam: [Normal S1 and S2, no S3 gallop, no murmur.] Abdomen: [Soft, nontender, no megaly, no rebound, no guarding, normal bowel sounds.] Extremities: [No clubbing, 1+ bipedal edema, no cyanosis.] Neurological Exam: alert and oriented 3 no focal deficit . Psychiatric normal mental status, normal mood and affect. . Skin: No rashes. - Labs CBC & Chem 7: 09/12/22 04:38 09/12/22 11:10 Labs: Abnormal Lab Results - Last 24 Hours (Table) 09/11/22 09/11/22 09/11/22 Range/Units 16:54 17:43 21:18 RBC (4.30-5.90) m/uL Hgb (13.0-17.5) gm/dL Hct (39.0-53.0) % Potassium (3.5-5.1) mmol/L BUN (9-20) mg/dL Glucose (74-99) mg/dL POC Glucose (mg/dL) 139 H 151 H 117 H (70-110) mg/dL Calcium (8.4-10.2) mg/dL 09/11/22 09/12/22 09/12/22 Range/Units 23:50 04:38 04:38 RBC 3.34 L (4.30-5.90) m/uL Hgb 9.5 L (13.0-17.5) gm/dL Hct 29.3 L (39.0-53.0) % Potassium 3.4 L (3.5-5.1) mmol/L BUN 21 H (9-20) mg/dL Glucose 108 H (74-99) mg/dL POC Glucose (mg/dL) 137 H (70-110) mg/dL Calcium 8.0 L (8.4-10.2) mg/dL 09/12/22 Range/Units 11:23 RBC (4.30-5.90) m/uL Hgb (13.0-17.5) gm/dL Hct (39.0-53.0) % Potassium (3.5-5.1) mmol/L BUN (9-20) mg/dL Glucose (74-99) mg/dL POC Glucose (mg/dL) 164 H (70-110) mg/dL Calcium (8.4-10.2) mg/dL Assessment and Plan Assessment: Impression: Acute cardiogenic shock/pulmonary edema Acute non-ST elevation myocardial infarction Triple-vessel coronary artery disease Left groin hematoma, stable related to cardiac catheterization Acute hypoxic respiratory failure secondary to above History of benign essential hypertension Acute kidney injury, likely cardiorenal in nature improved History of underlying coronary artery disease and previous stent placement Acute blood loss anemia secondary to left groin hematoma, expected outcome of cardiac catheterization Recommendation: Continue Lasix 40 mg every 12 hours Continue to monitor daily electrolytes and renal profile while on diuretics Advanced diet as tolerated Continue incentive spirometry. Continue GI and DVT prophylaxis Transfer patient out of the ICU to a monitor bed on the cardiac floor We will continue to follow. Time with Patient: Less than 30
--- NOTE | 2022-09-12 15:46 | P.PN ---
Subjective Progress Note Date: 09/12/22 Patient has no new complaints today. Patient reports resolution of chest pain, shortness of breath. He denies palpitations. Gen: awake, alert HEENT: normocephalic, atraumatic, good hearing acuity, moist mucous membranes Resp: good air exchange, breathing comfortably with no accessory muscle use CVS: good distal perfusion x 4, regular rate and rhythm without murmurs GI: soft, NTTP, ND : no SPT, no CVAT, martin catheter not present MSK: no pitting edema, no clubbing Neuro: non-focal, moving all extremities Psych: cooperative, euthymic mood Hospital course: Patient is a 67-year-old male with a history of coronary artery disease status post stenting many years ago, diabetes mellitus type 2 currently not on any medications, and osteoarthritis who presented to the ER via EMS for complaints of increasing shortness of breath. On arrival to the ER he underwent an extensive evaluation. His pulse was 118, respirations 32, blood pressure 163/114, and O2 sat was 85% on CPAP. Laboratory analysis was remarkable for white blood cell count of 12.8, sodium 135, carbon dioxide 13, glucose 186, lactic acid 5.6, total bilirubin 1.6, AST 124, ALT 55, troponin 12.5, and BNP 2930. Chest x-ray showed findings suspicious for pulmonary fibrosis with superimposed left perihilar infiltrate and interstitial pneumonitis. Patient became critical in the emergency room and went into cardiogenic shock as well as non-ST elevation myocardial infarction. Patient was intubated and placed on the vent. Vent settings rate 26, tidal volume of 450, FiO2 of 40% with a PEEP of 5. Also placed on propofol. Lasix drip was started then step down to 40 mg IV. Heparin drip running at 12 units per kilogram per hour. Levophed was started as well for cardiogenic shoc. Patient was taken to the [facility] and had Impella device inserted successfully on 09/08 which showed severe triple vessel disease. He underwent stenting to the LAD with plan for another staged intervention on 09/13. Patient developed a left groin hematoma after initial cardiac cath, taken back to the [facility] and Impella was removed. He is asked to begin on 09/11. Assessment: Non-STEMI L groin hematoma Acute hypoxic respiratory failure Cardiogenic pulmonary edema Cardiomyopathy, suspect ischemic Cardiogenic shock Acute kidney injury Diabetes mellitus Plan: Today, patient is afebrile, 114/74, heart rate 89, 94% on 2 L of nasal cannula CBC demonstrates anemia to 9.5 Basic metabolic panel shows potassium of 3.4 Reviewed pulmonology note, patient is doing well and was transferred from the ICU to the cardiac floor Continue aspirin 81 mg daily, atorvastatin 40 mg daily, ticagrelor 90 mg BID Continue metoprolol 12.5 mg twice a day Continue Lasix 40 mg IV every 12 hours, spironolactone 25 mg daily Patient is full code Objective - Vital Signs Vital signs: Vital Signs Temp 98.9 F 09/12/22 15:25 Pulse 89 09/12/22 15:25 Resp 16 09/12/22 15:25 BP 114/74 09/12/22 15:25 Pulse Ox 94 L 09/12/22 15:25 FiO2 40 09/11/22 16:00 Intake & Output 09/11/22 09/12/22 09/12/22 18:59 06:59 18:59 Intake Total 822 189 39 Output Total 1120 1685 505 Balance -298 -1496 -466 Weight 91 kg 88.5 kg Intake: IV 212 189 39 Sodium Chloride 0.9% 1, 140 120 30 000 ml @ 20 mls/hr IV . Q24H [facility] Rx#:[id number] pressure bag 72 69 9 Intake, IV Titration 100 Amount propofoL 1,000 mg In 100 Empty Bag 1 bag @ 15 MCG/ KG/MIN 7.348 mls/hr IV . [id number] [facility] Rx#:[id number] Oral 240 Tube Feeding 270 Output: Urine 1120 1685 505 Other: Voiding Method Indwelling Catheter Indwelling Catheter Indwelling Catheter ABP, PAP, CO, CI - Last Documented Arterial Blood Pressure 137/61 - Labs CBC & Chem 7: 09/12/22 04:38 09/12/22 11:10 Labs: Abnormal Lab Results - Last 24 Hours (Table) 09/11/22 09/11/22 09/11/22 Range/Units 16:54 17:43 21:18 RBC (4.30-5.90) m/uL Hgb (13.0-17.5) gm/dL Hct (39.0-53.0) % Potassium (3.5-5.1) mmol/L BUN (9-20) mg/dL Glucose (74-99) mg/dL POC Glucose (mg/dL) 139 H 151 H 117 H (70-110) mg/dL Calcium (8.4-10.2) mg/dL 09/11/22 09/12/22 09/12/22 Range/Units 23:50 04:38 04:38 RBC 3.34 L (4.30-5.90) m/uL Hgb 9.5 L (13.0-17.5) gm/dL Hct 29.3 L (39.0-53.0) % Potassium 3.4 L (3.5-5.1) mmol/L BUN 21 H (9-20) mg/dL Glucose 108 H (74-99) mg/dL POC Glucose (mg/dL) 137 H (70-110) mg/dL Calcium 8.0 L (8.4-10.2) mg/dL 09/12/22 Range/Units 11:23 RBC (4.30-5.90) m/uL Hgb (13.0-17.5) gm/dL Hct (39.0-53.0) % Potassium (3.5-5.1) mmol/L BUN (9-20) mg/dL Glucose (74-99) mg/dL POC Glucose (mg/dL) 164 H (70-110) mg/dL Calcium (8.4-10.2) mg/dL
[2022-09-12 16:50] LABS: Glucose,Whole Blood 167 mg/dL (70-110)
[2022-09-12 19:39] LABS: Glucose,Whole Blood 198 mg/dL (70-110)
[2022-09-12] MEDS: SODIUM CHLORIDE 0.9% 1,000 ML in EMPTY BAG 1 BAG IV SCH (22:16)
[2022-09-13] MEDS ORDERED: ATORVASTATIN 80 MG TAB PO ONE (05:00)
[2022-09-13] MEDS ORDERED: ASPIRIN 325 MG TAB PO ONE (05:00)
[2022-09-13 05:48] LABS: Glucose,Whole Blood 144 mg/dL (70-110)
[2022-09-13] MEDS: INSULIN DETEMIR (LEVEMIR) 100 UNIT/ML SYR SQ SCH (06:01)
[2022-09-13] MEDS: INSULIN ASPART (NovoLOG) 100 UNIT/ML VIAL SQ SCH ×7 (06:01→21:21)
[2022-09-13] MEDS ORDERED: HEPARIN SODIUM,PORCINE 10,000 UNIT in SODIUM CHLORIDE 0.9% 1,000 ML IRRIGATION PRN (07:00)
[2022-09-13] MEDS ORDERED: HEPARIN SODIUM,PORCINE 2,500 UNIT in SODIUM CHLORIDE 0.9% 250 ML IRRIGATION PRN (07:00)
[2022-09-13] MEDS: ASPIRIN 81 MG PO SCH (07:51)
[2022-09-13] MEDS: ATORVASTATIN 40 MG TAB PO SCH (07:51)
[2022-09-13] MEDS: METOPROLOL TARTRATE 12.5 MG TAB PO SCH ×2 (07:57→21:21)
[2022-09-13] MEDS: IPRATROPIUM-ALBUTEROL 3 ML NEB INHALATION SCH ×4 (09:16→20:20)
[2022-09-13 10:27] LABS: Glucose,Whole Blood 152 mg/dL (70-110)
[2022-09-13 11:20] LABS: Glucose,Whole Blood 145 mg/dL (70-110)
--- NOTE | 2022-09-13 12:02 | P.PN ---
Subjective Progress Note Date: 09/13/22 Principal diagnosis: Acute cardiogenic shock and pulmonary edema with acute hypoxic respiratory failure A 67-year-old male patient, came into the emergency department because of w orsening shortness of breath. The patient lives in [facility] and he has a primary care physician out of [facility]. The patient was visiting here in [place] and became progressively more short of breath. No significant cough or sputum production. No hemoptysis. No pleurisy. No angina. No palpitations. He is known to have CAD and he has undergone stenting many years back and she is not seeing a director instructional material on a regular basis. He is known to have hypertension. He is an ex-smoker. In the emergency, the patient was found to be hypertensive and he was diagnosed having an acute hypertensive emergency with secondary pulmonary edema. EKG showed some nonspecific ST segment changes in the lateral leads and anteroseptal Q waves. The cardiac rhythm was sinus. The chest x-ray was consistent with pulmonary edema. The patient's initial troponin came back at 12.5. His lactic acid level was at 5.6. ProBNP level was 2930. There was done was 12.8 with hemoglobin 14.3 and a platelet count of 276. The patient was started on IV heparin. The patient was started on nitroglycerin drip. Blood pressures under better control. Subsequently, the patient was also placed on a BiPAP at a pressure of 12/5 cm of water with an FiO2 of 50%. The current pulse ox is 97%. Most recent BP is 140/97 and a nitroglycerin is being titrated accordingly. He was given also Lasix. He is producing adequate amount of urine output. The chest x-ray showed coarse interstitial changes bilaterally. Most likely interstitial edema/CHF. On today's evaluation 09/07/2002, the patient is intubated on a mechanical ventilator. Note that after my initial evaluation, the patient's condition decompensated and the patient went into acute hypoxic respiratory failure and he was in significant amount of respiratory distress in the emergency department. Recommended intubation mechanical ventilation. The triple-lumen catheter was also inserted in the emergency. His chest x-ray was consistent with pulmonary edema. Following intubation, the patient was kept on propofol which is running at 40 mcg/kg/m. He remains on IV heparin. Troponins peaked at 27.7 consistent with an acute non-ST segment elevation myocardial infarction. Echocardiogram showed severe systolic heart failure and the patient has impaired left ventricular ejection fraction based on a limited echocardiogram and the ejection fraction was in the order of 20%. There was also mild mitral regurgitation and the right ventricular systolic pressure was around 51. This morning, the patient is quite stable on a mechanical ventilator. He is on assist control at the rate of 26 with a tidal volume of 450 and FiO2 of 40% with a PEEP of 5. His blood gases showed pH of 7.5 with a pCO2 of 29 and pO2 124 and this was on FiO2 of 50% and based on that FiO2 is up to 140. His chest x-ray still consistent with pulmonary edema. He remains on IV heparin. Is also on pressors were norepinephrine running at 0.08 microvascular kilogram per minute. He is also on Lasix drip at 5 mg an hour. His urine output is in order of 700 mL overnight. As such, the patient has not been diuresing aggressively. His creatinine is up to 1.4 consistent with an acute kidney injury with a BUN of 24. Sodium is at 135, the results was at 13 with a hemoglobin 12.4 and a platelet count of 260. Cardiology was made aware the patient is going to undergo a cardiac catheterization with possibly an Impala insertion. Cardiac rhythm is sinus. The patient on aspirin. The patient on IV heparin. The patient is on Levemir insulin 10 units and he is also taken a slight scale insulin coverage. Condition is still critical. He remains in cardiogenic shock. He is post acute NSTEMI. On today's evaluation of 09/09/2022, the patient remains intubated on a mechanical ventilator. The patient was taken to the cathode maker yesterday and card iac catheterization was done. The patient had significant elevation of the left ventricular end-diastolic pressure which was in the order of 30 mmHg. The patient was also found to have severe triple-vessel disease. RCA was diffusely diseased in order of 99% in the proximal portion, there was also 99% distal portion occlusion, the LAD was of a large caliber and it had a lesion in the proximal portion in order of 99%, there was a large diagonal branch that had a proximal lesion of 80-90%, th circumflex also had an 80% lesion. The patient was in Impella which is currently at the AP 6 flow at 2.7 L/m. His urine output is improved. His creatinine is improved. In fact, his creatinine is down to 1.4 with a BUN of 25. I was told by the director instructional material that immediately after the insertion of the device, his left and end-diastolic pressures dropped. The plan is to unload the LV at this point in time. The patient remains on a mechanical ventilator, assist control of 26, tidal volume of 450, FiO2 of 40% with a PEEP of 5. Blood gas from this morning shows a pH of 7.49 with a pCO2 of 30 and pO2 of 130. Chest x-ray still showing evidence of CHF and pulmonary edema. There is evidence of left lower lobe atelectasis and bilateral pleural effusions slightly worse on the left. He is out of is currently at 8.1 with a hemoglobin of 11.9 and platelet count of 192. The patient is on IV heparin. The patient on aspirin. The patient is also requiring pressors and norepinephrine is running at 0.03 mcg/kg/m. He has a left IJ triple-lumen catheter in place. He'll be started on enteral feeding for nutritional support. Is on Lasix drip at 5 mg an hour. On today's evaluation of 09/10/2022, the patient remains intubated on a mechanical ventilator. The patient has severe multivessel coronary artery disease, he is status post acute non-ST segment elevation myocardial infarction and cardiogenic shock requiring intubation mechanical ventilation. He underwent cardiac catheterization and Impella insertion, and subsequently was taken back to the [facility] yesterday for stenting of the LAD. The procedure was done and subsequently the patient developed a left groin hematoma. The patient was taken to the [facility]. No further intervention was done. The Impala was removed. The patient was brought back to the ICU. The patient remains on a mechanical ventilator. The patient is currently on assist control mode at a rate of 20, tidal volume of 450, FiO2 of 40% and a PEEP of 5. The blood gas from today shows a pH of 7.46 with a pCO2 of 31 and pO2 126. He is currently on a comb ination of aspirin and Plavix. IV heparin has been discontinued. He was taken off the Lasix drip and currently is receiving Lasix 40 mg IV every 12 hours. He remains on low-dose of norepinephrine at 0.03 mcg/kg/m. He was also started on therapeutic for nutritional support. Renal function is stable. Hemoglobin is down to 9.6. Sodium is at 134 with a potassium level of 3.7, BUN is 23 with a c reatinine of 0.9. Reevaluated today on 09/11/2022, patient remains in the ICU, intubated and mechanically ventilated he is now on assist control rate of 20 tidal volume 450 FiO2 40% and PEEP of 5. ABG showed a pO2 of 128 pCO2 35 pH of 7.45. Remains on Lasix at 40 mg IV push every 12 hours, his norepinephrine was discontinued this morning. Patient is on propofol at 50 mcg/kg/m, he is receiving vital AF at 45 mL per hour. Last echocardiogram showed ejection fraction of less than 20%. His Impala device is removed already 2 days ago. Chest x-ray showed small left pleural effusion and patchy opacity right base. Labs today are unremarkable including CBC and basic metabolic profile, normal renal profile is noted. Patient will be given today for weaning after holding propofol, we will likely place the patient on a trial of pressure support and CPAP. If tolerated may even proceed to extubating the patient today. Reevaluated today on 09/12/2022, patient was extubated yesterday, tolerated the extubation well, presently on 2 L nasal cannula, not in any distress. Patient has good urine output, remains on Lasix 40 mg IV push twice a day, continues to have a left IJ central line/triple-lumen catheter in place. Patient is not in any distress, and he denies shortness of breath cough or wheezing. Chest x-ray is relatively unremarkable today. CBC and basic metabolic profile are relat ively normal. Hence I plan to transfer the patient out of the ICU to a cardiac floor Reevaluated today on 09/13/2022, patient is doing great, remains on room air, not in any distress, remains on multiple cardiac meds, however the patient is considered for possible repeat cardiac catheterization and stenting now of the RCA. In the meantime the patient is doing well from the pulmonary perspective, and I believe cardiology is planning to do the procedure today. Objective - Vital Signs Vital signs: Vital Signs Temp 97.5 F L 09/13/22 11:53 Pulse 89 09/13/22 11:53 Resp 18 09/13/22 11:53 BP 132/84 09/13/22 11:53 Pulse Ox 95 09/13/22 11:53 FiO2 40 09/11/22 16:00 Intake & Output 09/12/22 09/13/22 09/13/22 18:59 06:59 18:59 Intake Total 639 Output Total 505 1225 400 Balance 134 -1225 -400 Weight 81.9 kg Intake: IV 39 Sodium Chloride 0.9% 1, 30 000 ml @ 20 mls/hr IV . Q24H [facility] Rx#:[id number] pressure bag 9 Oral 600 Output: Urine 505 1225 400 Other: Voiding Method Toilet Urinal Urinal ABP, PAP, CO, CI - Last Documented Arterial Blood Pressure 137/61 - Exam Physical Exam: Revealed a 67-year-old white male in no distress, on room air HEENT: [No neck masses.] [No thyromegaly.] [No JVD.] Chest: Symmetrical chest expansion clear throughout no crackles or rhonchi or wheezes cardiac Exam: [Normal S1 and S2, no S3 gallop, no murmur.] Abdomen: [Soft, nontender, no megaly, no rebound, no guarding, normal bowel sounds.] Extremities: [No clubbing, 1+ bipedal edema, no cyanosis.] Neurological Exam: alert and oriented 3 no focal deficit . Psychiatric normal mental status, normal mood and affect. . Skin: No rashes. - Labs CBC & Chem 7: 09/12/22 04:38 09/12/22 11:10 Labs: Abnormal Lab Results - Last 24 Hours (Table) 09/12/22 09/12/22 09/13/22 Range/Units 16:46 19:37 05:45 POC Glucose (mg/dL) 167 H 198 H 144 H (70-110) mg/dL 09/13/22 09/13/22 Range/Units 10:26 11:19 POC Glucose (mg/dL) 152 H 145 H (70-110) mg/dL Assessment and Plan Assessment: Impression: Acute cardiogenic shock/pulmonary edema Acute non-ST elevation myocardial infarction Triple-vessel coronary artery disease Left groin hematoma, stable related to cardiac catheterization Acute hypoxic respiratory failure secondary to above History of benign essential hypertension Acute kidney injury, likely cardiorenal in nature improved History of underlying coronary artery disease and previous stent placement Acute blood loss anemia secondary to left groin hematoma, expected outcome of cardiac catheterization Recommendation: Continue Lasix 40 mg every 12 hours Continue cardiac medications Patient is being considered for angioplasty of RCA possibly today Continue to advance diet as tolerated Continue incentive spirometry. Continue GI and DVT prophylaxis We will continue to follow. Time with Patient: Less than 30
[2022-09-13] MEDS: FUROSEMIDE 10 MG/ML 4 ML VIAL IV SCH ×2 (12:53→21:21)
[2022-09-13] MEDS: TICAGRELOR 90 MG TAB PO SCH ×2 (12:54→21:21)
[2022-09-13] MEDS ORDERED: VERAPAMIL 2.5 MG/ML 2 ML AMP ONE (13:08)
[2022-09-13] MEDS ORDERED: IV FLUID CONTINUATION 300 ML IV ONE (13:31)
[2022-09-13] MEDS ORDERED: HEPARIN SODIUM 1,000 UN/ML (10ML VL) ONE (13:39)
--- NOTE | 2022-09-13 13:44 | P.PN ---
Subjective Progress Note Date: 09/13/22 Patient has no new complaints today. Plan for stent placement today as staged procedure Gen: awake, alert HEENT: normocephalic, atraumatic, good hearing acuity, moist mucous membranes Resp: good air exchange, breathing comfortably with no accessory muscle use CVS: good distal perfusion x 4, regular rate and rhythm without murmurs GI: soft, NTTP, ND : no SPT, no CVAT, martin catheter not present MSK: no pitting edema, no clubbing Neuro: non-focal, moving all extremities Psych: cooperative, euthymic mood Hospital course: Patient is a 67-year-old male with a history of coronary artery disease status post stenting many years ago, diabetes mellitus type 2 currently not on any medications, and osteoarthritis who presented to the ER via EMS for complaints of increasing shortness of breath. On arrival to the ER he underwent an extensive evaluation. His pulse was 118, respirations 32, blood pressure 163/114, and O2 sat was 85% on CPAP. Laboratory analysis was remarkable for white blood cell count of 12.8, sodium 135, carbon dioxide 13, glucose 186, lactic acid 5.6, total bilirubin 1.6, AST 124, ALT 55, troponin 12.5, and BNP 2930. Chest x-ray showed findings suspicious for pulmonary fibrosis with superimposed left perihilar infiltrate and interstitial pneumonitis. Patient became critical in the emergency room and went into cardiogenic shock as well as non-ST elevation myocardial infarction. Patient was intubated and placed on the vent. Vent settings rate 26, tidal volume of 450, FiO2 of 40% with a PEEP of 5. Also placed on propofol. Lasix drip was started then step down to 40 mg IV. Heparin drip running at 12 units per kilogram per hour. Levophed was started as well for cardiogenic shoc. Patient was taken to the Cl[facility] and had Impella device inserted successfully on 09/08 which showed severe triple vessel disease. He underwent stenting to the LAD with plan for another staged intervention on 09/13. Patient developed a left groin hematoma after initial cardiac cath, taken back to the Clutch Operator and Impella was removed. He is asked to begin on 09/11. Assessment: Non-STEMI L groin hematoma Acute hypoxic respiratory failure Cardiogenic pulmonary edema Cardiomyopathy, suspect ischemic Cardiogenic shock Acute kidney injury Diabetes mellitus Plan: Today, patient is afebrile, 132/84, heart rate 89, 95% on RA BS range from 144-198 in last 24 hours Continue aspirin 81 mg daily, atorvastatin 40 mg daily, ticagrelor 90 mg BID Continue metoprolol 12.5 mg twice a day Continue Lasix 40 mg IV every 12 hours, spironolactone 25 mg daily Patient is full code Objective - Vital Signs Vital signs: Vital Signs Temp 97.5 F L 09/13/22 11:53 Pulse 89 09/13/22 11:53 Resp 18 09/13/22 11:53 BP 132/84 09/13/22 11:53 Pulse Ox 95 09/13/22 11:53 FiO2 40 09/11/22 16:00 Intake & Output 09/12/22 09/13/22 09/13/22 18:59 06:59 18:59 Intake Total 639 Output Total 505 1225 400 Balance 134 -1225 -400 Weight 81.9 kg Intake: IV 39 Sodium Chloride 0.9% 1, 30 000 ml @ 20 mls/hr IV . Q24H [facility] Rx#:[id number] pressure bag 9 Oral 600 Output: Urine 505 1225 400 Other: Voiding Method Toilet Urinal Urinal ABP, PAP, CO, CI - Last Documented Arterial Blood Pressure 137/61 - Labs CBC & Chem 7: 09/12/22 04:38 09/12/22 11:10 Labs: Abnormal Lab Results - Last 24 Hours (Table) 09/12/22 09/12/22 09/13/22 Range/Units 16:46 19:37 05:45 POC Glucose (mg/dL) 167 H 198 H 144 H (70-110) mg/dL 09/13/22 09/13/22 Range/Units 10:26 11:19 POC Glucose (mg/dL) 152 H 145 H (70-110) mg/dL
[2022-09-13] MEDS ORDERED: MIDAZOLAM 2 MG/2 ML VIAL IVP ONE (13:47)
[2022-09-13] MEDS ORDERED: LIDOCAINE 1% INJ 10MG/ML (5 ML VIAL-PF) SQ ONE (13:50)
[2022-09-13] MEDS ORDERED: VERAPAMIL SYRINGE (5 MG/10 ML) INTRAARTER ONE (13:52)
[2022-09-13] MEDS: HEPARIN SODIUM 1,000 UN/ML (10ML VL) IVP ONE ×2 (13:52→14:47)
[2022-09-13] MEDS ORDERED: TICAGRELOR 90 MG TAB ONE (13:53)
[2022-09-13] MEDS ORDERED: niCARdipine 25 MG/10 ML VIAL ONE (13:54)
[2022-09-13] MEDS ORDERED: TICAGRELOR 90 MG TAB PO ONE (13:56)
[2022-09-13] MEDS ORDERED: LIDOCAINE 1% INJ 10MG/ML (20 ML MDV) ONE (14:04)
[2022-09-13] MEDS ORDERED: LIDOCAINE 1% INJ 10MG/ML (20 ML MDV) SQ ONE (14:06)
[2022-09-13] MEDS ORDERED: NITROGLYCERIN 1000MCG/10ML SYRINGE INTRACORON ONE (14:41)
[2022-09-13] MEDS ORDERED: IOPAMIDOL-370 100ML BTL INJ ONE (14:50)
[2022-09-13] MEDS ORDERED: SODIUM CHLORIDE 0.9% 500 ML 500 ML IV ONE (14:51)
[2022-09-13] MEDS: FAMOTIDINE 20 MG/2 ML VIAL IV SCH ×2 (16:13→21:21)
[2022-09-13] MEDS ORDERED: ATROPINE SULFATE 0.1 MG/ML 10ML SYRINGE ONE (16:36)
[2022-09-13] MEDS: SODIUM CHLORIDE 0.9% 1,000 ML IV SCH (17:09)
[2022-09-13] MEDS: SODIUM CHLORIDE 0.9% 1,000 ML in EMPTY BAG 1 BAG IV SCH (17:10)
[2022-09-13 17:16] LABS: Glucose,Whole Blood 163 mg/dL (70-110)
[2022-09-13] MEDS: SPIRONOLACTONE 25 MG TAB PO SCH (17:38)
[2022-09-13 19:59] LABS: Glucose,Whole Blood 156 mg/dL (70-110)
--- NOTE | 2022-09-13 22:25 | P.PCN ---
Date of Procedure: 09/13/22 Operative Findings: PERCUTANEOUS CORONARY INTERVENTION Performing physician Mahendra Terry M.D. Procedure Performed: 1. Successful stenting of the distal RCA using 3.25 x 23 mm Xience drug-eluting stent with an excellent angiographic results and reduction of stenosis from 99% to 0% 2. Successful balloon angioplasty of the mid and proximal RCA using 3 mm balloon with an excellent angiographic results and reduction of stenosis from 99% to 0% 3. Adjunctive use of intravascular ultrasound (IVUS) 4. Ultrasound-guided access of the right radial artery and the right common femoral artery and angiogram of the right radial artery and right common femoral artery Indication: Critical coronary artery disease in the 67-year-old gentleman who was admitted to the hospital with acute non-ST patient myocardial infarction and underwent a heart catheterization and was found to have critical disease involving the LAD which was a stented and critical disease involving the RCA. He was brought today to undergo PCI of the RCA Approach: Right radial artery and right common femoral artery Complications: None Level of Sedation: Moderate with a sedation length of 60 minutes Procedure Discussion: After obtaining an informed consent the patient was brought to the cardiac assistant laboratory director. The right radial artery was cannulated using micropuncture technique the micropuncture wire passed easily then I placed a 6-Swazi sheath. Attempting advancing an 035 wire and all 4 wire was unsuccessful to cross the elbow. At that point I decided to abort radial approach and go from the groin. The right common femoral artery was cannulated using micropuncture technique under ultrasound guidance, the micropuncture wire passed easily then I placed a 6- Swazi sheath. I did engage the RCA using an AL-1 guiding catheter. Anticoagulation was initiated using heparin with continuous ACT monitoring. The RCA was wired using a whisper wire. Intravascular ultrasound was performed and showed a diameter of the RCA proximally about 3.5 mm. Balloon angioplasty was performed using 3 mm balloon of the distal and mid and proximal right coronary artery. Subsequently I advanced a 3.25 x 23 mm stent where the stent was positioned under fluoroscopy guidance and deployed under fluoroscopy guidance. Final angiogram was performed and showed excellent angiographic results for the distal right coronary artery and excellent angiographic results for the middle and proximal right coronary artery was only angioplasty only. The patient did have stenting of the RCA in the mid and proximal portion before. The procedure was completed was no complication Postprocedure Management: 1. Dual antiplatelet therapy
[2022-09-14 06:14] LABS: Glucose,Whole Blood 224 mg/dL (70-110)
[2022-09-14] MEDS: INSULIN DETEMIR (LEVEMIR) 100 UNIT/ML SYR SQ SCH (06:35)
[2022-09-14] MEDS: INSULIN ASPART (NovoLOG) 100 UNIT/ML VIAL SQ SCH ×6 (06:36→17:40)
[2022-09-14 08:01] LABS: Basophils % (A) 0 %; Eosinophils # (A) 0.1 k/uL (0-0.7); Eosinophils % (A) 2 %; HCT 33.1 % (39.0-53.0); HGB 10.7 gm/dL (13.0-17.5); Lymphocytes # (A) 1.3 k/uL (1.0-4.8); Lymphocytes % (A) 17 %; MCH 28.8 pg (25.0-35.0); MCHC 32.4 g/dL (31.0-37.0); Mean Platelet Volume 8.3; Monocytes # (A) 0.7 k/uL (0-1.0); Monocytes % (A) 10 %; Neutrophils # (A) 5.2 k/uL (1.3-7.7); Neutrophils % (A) 70 %; Platelet Count 344 k/uL (150-450); RBC 3.72 m/uL (4.30-5.90); RDW 14.2 % (11.5-15.5); WBC 7.4 k/uL (3.8-10.6)
[2022-09-14] MEDS: METOPROLOL TARTRATE 12.5 MG TAB PO SCH (08:09)
[2022-09-14] MEDS: SPIRONOLACTONE 25 MG TAB PO SCH (08:09)
[2022-09-14] MEDS: ASPIRIN 81 MG PO SCH (08:10)
[2022-09-14] MEDS: FAMOTIDINE 20 MG/2 ML VIAL IV SCH (08:10)
[2022-09-14] MEDS: TICAGRELOR 90 MG TAB PO SCH (08:10)
[2022-09-14] MEDS: ATORVASTATIN 40 MG TAB PO SCH (08:10)
[2022-09-14] MEDS: FUROSEMIDE 10 MG/ML 4 ML VIAL IV SCH (08:11)
[2022-09-14] MEDS: IPRATROPIUM-ALBUTEROL 3 ML NEB INHALATION SCH ×3 (08:41→15:40)
[2022-09-14 08:46] LABS: Potassium 3.5 mmol/L (3.5-5.1)
[2022-09-14 08:47] LABS: African American GFR (CKD) >90 (>60 ml/min/1.73 sqM); Anion Gap 12 mmol/L; Blood Urea Nitrogen 23 mg/dL (9-20); Calcium 8.6 mg/dL (8.4-10.2); Carbon Dioxide 25 mmol/L (22-30); Chloride 98 mmol/L (98-107); Glucose 187 mg/dL (74-99); Magnesium 2.1 mg/dL (1.6-2.3); Non-African American GFR(CKD) 88 (>60 ml/min/1.73 sqM); Sodium 135 mmol/L (137-145)
[2022-09-14 10:53] VITALS: BMI 23.8
[2022-09-14 11:42] LABS: Glucose,Whole Blood 167 mg/dL (70-110)
--- NOTE | 2022-09-14 12:35 | P.PN ---
Subjective Progress Note Date: 09/14/22 Hospital Course: Patient is a 67-year-old male with a history of coronary artery disease status post stenting many years ago, diabetes mellitus type 2 currently not on any medications, and osteoarthritis who presented to the ER via EMS for complaints of increasing shortness of breath. In ER, his pulse was 118, respirations 32, blood pressure 163/114, and O2 sat was 85% on CPAP. Laboratory analysis was remarkable for white blood cell count of 12.8, sodium 135, carbon dioxide 13, gl ucose 186, lactic acid 5.6, total bilirubin 1.6, AST 124, ALT 55, troponin 12.5, and BNP 2930. Chest x-ray showed findings suspicious for pulmonary fibrosis with superimposed left perihilar infiltrate and interstitial pneumonitis. Patient became critical in the emergency room and went into cardiogenic shock as well as non-ST elevation myocardial infarction. Patient was intubated and placed on the vent. Was started on propofol, Levophed, heparin drip and Lasix drip. Patient was taken to the [facility] and had Impella device inserted successfully on 09/08 which showed severe triple vessel disease. He underwent stenting to the LAD with plan for another staged intervention on 09/13. Patient developed a left groin hematoma after initial cardiac cath, taken back to the [facility] and Impella was removed. Extubated on 09/11. Now on Lasix 40 mg IV push twice a day. Downgraded out of the ICU. Had another cath on 09/13 with successful stenting of distal RCA and successful balloon angioplasty of mid and proximal RCA. Echocardiogram shows LVEF less than 20%. Subjective: Patient seen and examined at bedside. No acute events overnight. Denies any significant shortness of breath or chest pain. Denies any other complaints. Pertinent positives and negatives as discussed above, a complete review of systems was performed and all other systems are negative. Vitals Signs Reviewed. General: nontoxic, no distress, appears at stated age Derm: warm, dry Head: atraumatic, normocephalic, symmetric Eyes: EOMI, no lid lag, anicteric sclera Mouth: no lip lesion, mucus membranes moist Cardiovascular: S1S2 reg, no murmur Lungs: CTA bilateral, no rhonchi, no rales , no accessory muscle use Abdominal: soft, nontender to palpation, no guarding, no appreciable organomegaly Ext: no gross muscle atrophy, no edema, no contractures Neuro: CN II-XI grossly intact, no focal neuro deficits Psych: Alert, oriented, appropriate affect Data Reviewed Today: Pertinent Labs: WBC 7.4, hemoglobin 10.7, sodium 135, creatinine 0.88, blood sugars range between 156-187 Imaging: No new imaging today Assessment and Plan: Active: Non-STEMI Left groin hematoma CAD status post stents Ischemic cardiomyopathy, LVEF less than 20% Cardiogenic pulmonary edema Diabetes mellitus -Cardiac cath report reviewed, successful stenting of RCA -Continue aspirin, atorvastatin, brilinta -lasix 40 mg q12hr -metoprolol 12.5 BID, changes succinate at the time of discharge -aldactone 25 mg daily -Levemir 30 units, 10 units aspart 3 times a day, sliding scale insulin, no changes today Resolved: Acute hypoxic respiratory failure Cardiogenic shock Acute kidney injury DVT ppx: Subcu heparin Code status: full code Anticipated discharge place: Likely home Anticipated discharge time: 1-2 days Objective - Vital Signs Vital signs: Vital Signs Temp 97.6 F 09/14/22 07:57 Pulse 111 H 09/14/22 08:53 Resp 16 09/14/22 08:53 BP 130/80 09/14/22 07:57 Pulse Ox 96 09/14/22 08:41 FiO2 40 09/11/22 16:00 Intake & Output 09/13/22 09/14/22 09/14/22 18:59 06:59 18:59 Intake Total 475 360 Output Total 400 1425 825 Balance 75 1425 -465 Weight 79.7 kg 79.7 kg Intake: IV 275 Oral 200 360 Output: Urine 400 1425 825 Other: Voiding Method Urinal Urinal Urinal # Voids 1 1 # Bowel Movements 1 ABP, PAP, CO, CI - Last Documented Arterial Blood Pressure 137/61 - Labs CBC & Chem 7: 09/14/22 07:24 09/14/22 07:24 Labs: Abnormal Lab Results - Last 24 Hours (Table) 09/13/22 09/13/22 09/14/22 Range/Units 17:15 19:56 06:12 RBC (4.30-5.90) m/uL Hgb (13.0-17.5) gm/dL Hct (39.0-53.0) % Sodium (137-145) mmol/L BUN (9-20) mg/dL Glucose (74-99) mg/dL POC Glucose (mg/dL) 163 H 156 H 224 H (70-110) mg/dL 09/14/22 09/14/22 09/14/22 Range/Units 07:24 07:24 11:34 RBC 3.72 L (4.30-5.90) m/uL Hgb 10.7 L (13.0-17.5) gm/dL Hct 33.1 L (39.0-53.0) % Sodium 135 L (137-145) mmol/L BUN 23 H (9-20) mg/dL Glucose 187 H (74-99) mg/dL POC Glucose (mg/dL) 167 H (70-110) mg/dL
[2022-09-14 12:39] VITALS: TEMP 97.3
[2022-09-14] MEDS: SODIUM CHLORIDE 0.9% 1,000 ML IV SCH (12:40)
--- NOTE | 2022-09-14 12:47 | P.PN ---
Subjective Progress Note Date: 09/14/22 Principal diagnosis: Acute cardiogenic shock and pulmonary edema with acute hypoxic respiratory failure A 67-year-old male patient, came into the emergency department because of w orsening shortness of breath. The patient lives in [facility] and he has a primary care physician out of [facility]. The patient was visiting here in [place] and became progressively more short of breath. No significant cough or sputum production. No hemoptysis. No pleurisy. No angina. No palpitations. He is known to have CAD and he has undergone stenting many years back and she is not seeing a mailer apprentice on a regular basis. He is known to have hypertension. He is an ex-smoker. In the emergency, the patient was found to be hypertensive and he was diagnosed having an acute hypertensive emergency with secondary pulmonary edema. EKG showed some nonspecific ST segment changes in the lateral leads and anteroseptal Q waves. The cardiac rhythm was sinus. The chest x-ray was consistent with pulmonary edema. The patient's initial troponin came back at 12.5. His lactic acid level was at 5.6. ProBNP level was 2930. There was done was 12.8 with hemoglobin 14.3 and a platelet count of 276. The patient was started on IV heparin. The patient was started on nitroglycerin drip. Blood pressures under better control. Subsequently, the patient was also placed on a BiPAP at a pressure of 12/5 cm of water with an FiO2 of 50%. The current pulse ox is 97%. Most recent BP is 140/97 and a nitroglycerin is being titrated accordingly. He was given also Lasix. He is producing adequate amount of urine output. The chest x-ray showed coarse interstitial changes bilaterally. Most likely interstitial edema/CHF. On today's evaluation 09/07/2002, the patient is intubated on a mechanical ventilator. Note that after my initial evaluation, the patient's condition decompensated and the patient went into acute hypoxic respiratory failure and he was in significant amount of respiratory distress in the emergency department. Recommended intubation mechanical ventilation. The triple-lumen catheter was also inserted in the emergency. His chest x-ray was consistent with pulmonary edema. Following intubation, the patient was kept on propofol which is running at 40 mcg/kg/m. He remains on IV heparin. Troponins peaked at 27.7 consistent with an acute non-ST segment elevation myocardial infarction. Echocardiogram showed severe systolic heart failure and the patient has impaired left ventricular ejection fraction based on a limited echocardiogram and the ejection fraction was in the order of 20%. There was also mild mitral regurgitation and the right ventricular systolic pressure was around 51. This morning, the patient is quite stable on a mechanical ventilator. He is on assist control at the rate of 26 with a tidal volume of 450 and FiO2 of 40% with a PEEP of 5. His blood gases showed pH of 7.5 with a pCO2 of 29 and pO2 124 and this was on FiO2 of 50% and based on that FiO2 is up to 140. His chest x-ray still consistent with pulmonary edema. He remains on IV heparin. Is also on pressors were norepinephrine running at 0.08 microvascular kilogram per minute. He is also on Lasix drip at 5 mg an hour. His urine output is in order of 700 mL overnight. As such, the patient has not been diuresing aggressively. His creatinine is up to 1.4 consistent with an acute kidney injury with a BUN of 24. Sodium is at 135, the results was at 13 with a hemoglobin 12.4 and a platelet count of 260. Cardiology was made aware the patient is going to undergo a cardiac catheterization with possibly an Impala insertion. Cardiac rhythm is sinus. The patient on aspirin. The patient on IV heparin. The patient is on Levemir insulin 10 units and he is also taken a slight scale insulin coverage. Condition is still critical. He remains in cardiogenic shock. He is post acute NSTEMI. On today's evaluation of 09/09/2022, the patient remains intubated on a mechanical ventilator. The patient was taken to the lab aide yesterday and card iac catheterization was done. The patient had significant elevation of the left ventricular end-diastolic pressure which was in the order of 30 mmHg. The patient was also found to have severe triple-vessel disease. RCA was diffusely diseased in order of 99% in the proximal portion, there was also 99% distal portion occlusion, the LAD was of a large caliber and it had a lesion in the proximal portion in order of 99%, there was a large diagonal branch that had a proximal lesion of 80-90%, th circumflex also had an 80% lesion. The patient was in Impella which is currently at the AP 6 flow at 2.7 L/m. His urine output is improved. His creatinine is improved. In fact, his creatinine is down to 1.4 with a BUN of 25. I was told by the mailer apprentice that immediately after the insertion of the device, his left and end-diastolic pressures dropped. The plan is to unload the LV at this point in time. The patient remains on a mechanical ventilator, assist control of 26, tidal volume of 450, FiO2 of 40% with a PEEP of 5. Blood gas from this morning shows a pH of 7.49 with a pCO2 of 30 and pO2 of 130. Chest x-ray still showing evidence of CHF and pulmonary edema. There is evidence of left lower lobe atelectasis and bilateral pleural effusions slightly worse on the left. He is out of is currently at 8.1 with a hemoglobin of 11.9 and platelet count of 192. The patient is on IV heparin. The patient on aspirin. The patient is also requiring pressors and norepinephrine is running at 0.03 mcg/kg/m. He has a left IJ triple-lumen catheter in place. He'll be started on enteral feeding for nutritional support. Is on Lasix drip at 5 mg an hour. On today's evaluation of 09/10/2022, the patient remains intubated on a mechanical ventilator. The patient has severe multivessel coronary artery disease, he is status post acute non-ST segment elevation myocardial infarction and cardiogenic shock requiring intubation mechanical ventilation. He underwent cardiac catheterization and Impella insertion, and subsequently was taken back to the [facility] To The [facility] yesterday for stenting of the LAD. The procedure was done and subsequently the patient developed a left groin hematoma. The patient was taken to the [facility] The [facility]. No further intervention was done. The Impala was removed. The patient was brought back to the ICU. The patient remains on a mechanical ventilator. The patient is currently on assist control mode at a rate of 20, tidal volume of 450, FiO2 of 40% and a PEEP of 5. The blood gas from today shows a pH of 7.46 with a pCO2 of 31 and pO2 126. He is currently on a comb ination of aspirin and Plavix. IV heparin has been discontinued. He was taken off the Lasix drip and currently is receiving Lasix 40 mg IV every 12 hours. He remains on low-dose of norepinephrine at 0.03 mcg/kg/m. He was also started on therapeutic for nutritional support. Renal function is stable. Hemoglobin is down to 9.6. Sodium is at 134 with a potassium level of 3.7, BUN is 23 with a c reatinine of 0.9. Reevaluated today on 09/11/2022, patient remains in the ICU, intubated and mechanically ventilated he is now on assist control rate of 20 tidal volume 450 FiO2 40% and PEEP of 5. ABG showed a pO2 of 128 pCO2 35 pH of 7.45. Remains on Lasix at 40 mg IV push every 12 hours, his norepinephrine was discontinued this morning. Patient is on propofol at 50 mcg/kg/m, he is receiving vital AF at 45 mL per hour. Last echocardiogram showed ejection fraction of less than 20%. His Impala device is removed already 2 days ago. Chest x-ray showed small left pleural effusion and patchy opacity right base. Labs today are unremarkable including CBC and basic metabolic profile, normal renal profile is noted. Patient will be given today for weaning after holding propofol, we will likely place the patient on a trial of pressure support and CPAP. If tolerated may even proceed to extubating the patient today. Reevaluated today on 09/12/2022, patient was extubated yesterday, tolerated the extubation well, presently on 2 L nasal cannula, not in any distress. Patient has good urine output, remains on Lasix 40 mg IV push twice a day, continues to have a left IJ central line/triple-lumen catheter in place. Patient is not in any distress, and he denies shortness of breath cough or wheezing. Chest x-ray is relatively unremarkable today. CBC and basic metabolic profile are relat ively normal. Hence I plan to transfer the patient out of the ICU to a cardiac floor Reevaluated today on 09/13/2022, patient is doing great, remains on room air, not in any distress, remains on multiple cardiac meds, however the patient is considered for possible repeat cardiac catheterization and stenting now of the RCA. In the meantime the patient is doing well from the pulmonary perspective, and I believe cardiology is planning to do the procedure today. Reevaluated today on 09/14/2022, patient continues to do well, he had stenting/successful stenting of the RCA yesterday. Patient is on room air, asymptomatic, O2 sat is 95%. Objective - Vital Signs Vital signs: Vital Signs Temp 97.3 F L 09/14/22 12:38 Pulse 85 09/14/22 12:38 Resp 18 09/14/22 12:38 BP 124/73 09/14/22 12:38 Pulse Ox 95 09/14/22 12:38 FiO2 40 09/11/22 16:00 Intake & Output 09/13/22 09/14/22 09/14/22 18:59 06:59 18:59 Intake Total 475 360 Output Total 400 1425 825 Balance 75 -1425 -465 Weight 79.7 kg 79.7 kg Intake: IV 275 Oral 200 360 Output: Urine 400 1425 825 Other: Voiding Method Urinal Urinal Urinal # Voids 1 1 # Bowel Movements 1 ABP, PAP, CO, CI - Last Documented Arterial Blood Pressure 137/61 - Exam Physical Exam: Revealed a 67-year-old white male in no distress, on room air HEENT: [No neck masses.] [No thyromegaly.] [No JVD.] Chest: Symmetrical chest expansion clear throughout no crackles or rhonchi or wheezes cardiac Exam: [Normal S1 and S2, no S3 gallop, no murmur.] Abdomen: [Soft, nontender, no megaly, no rebound, no guarding, normal bowel sounds.] Extremities: [No clubbing, trace of bipedal edema, no cyanosis. Neurological Exam: alert and oriented 3 no focal deficit . Psychiatric normal mental status, normal mood and affect. . Skin: No rashes. - Labs CBC & Chem 7: 09/14/22 07:24 09/14/22 07:24 Labs: Abnormal Lab Results - Last 24 Hours (Table) 09/13/22 09/13/22 09/14/22 Range/Units 17:15 19:56 06:12 RBC (4.30-5.90) m/uL Hgb (13.0-17.5) gm/dL Hct (39.0-53.0) % Sodium (137-145) mmol/L BUN (9-20) mg/dL Glucose (74-99) mg/dL POC Glucose (mg/dL) 163 H 156 H 224 H (70-110) mg/dL 09/14/22 09/14/22 09/14/22 Range/Units 07:24 07:24 11:34 RBC 3.72 L (4.30-5.90) m/uL Hgb 10.7 L (13.0-17.5) gm/dL Hct 33.1 L (39.0-53.0) % Sodium 135 L (137-145) mmol/L BUN 23 H (9-20) mg/dL Glucose 187 H (74-99) mg/dL POC Glucose (mg/dL) 167 H (70-110) mg/dL Assessment and Plan Assessment: Impression: Acute cardiogenic shock/pulmonary edema Acute non-ST elevation myocardial infarction Triple-vessel coronary artery disease Left groin hematoma, stable related to cardiac catheterization Acute hypoxic respiratory failure secondary to above History of benign essential hypertension Acute kidney injury, likely cardiorenal in nature improved History of underlying coronary artery disease and previous stent placement Acute blood loss anemia secondary to left groin hematoma, expected outcome of cardiac catheterization Recommendation: Continue Lasix 40 mg every 12 hours, consider transitioning to oral Lasix Continue cardiac medications Consider discharge planning once cleared by cardiology Continue incentive spirometry. Continue GI and DVT prophylaxis We will continue to follow. Time with Patient: Less than 30
--- NOTE | 2022-09-14 13:28 | P.PN ---
Subjective Progress Note Date: 09/14/22 HISTORY OF PRESENT ILLNESS: This is 67-year-old male who underwent repeat cardiac catheterization yesterday with Dr. Clinton. Patient underwent stenting of the distal RCA and balloon a ngioplasty of the mid and proximal RCA. Patient examined this morning at the bedside. Patient denies chest pain or pressure. He denies shortness of breath. Patient been up ambulating without difficulty. Vital signs are stable. PHYSICAL EXAM: VITAL SIGNS: Reviewed. GENERAL: Well-developed in no acute distress. NECK: Supple. No JVD or thyromegaly LUNGS: Respirations even and unlabored. Lungs essentially clear to auscultation bilaterally. HEART: Regular rate and rhythm. S1 and S2 heard. EXTREMITIES: Normal range of motion. No clubbing or cyanosis. Peripheral pulses intact. No lower extremity edema ASSESSMENT: Non-STEMI Left groin hematoma, resolved Coronary artery disease Ischemic cardiomyopathy Cardiogenic shock Acute kidney injury PLAN: Continue current cardiac medications Increase metoprolol to 25 mg twice a day Discontinue IV Lasix. Begin oral Lasix Patient is stable for discharge home today from a cardiac standpoint He is to follow up on an outpatient basis. Nurse practitioner note has been reviewed by physician. Signing provider agrees with the documented findings, assessment, and plan of care. Objective - Vital Signs Vital signs: Vital Signs Temp 97.3 F L 09/14/22 12:38 Pulse 85 09/14/22 12:38 Resp 18 09/14/22 12:38 BP 124/73 09/14/22 12:38 Pulse Ox 95 09/14/22 12:38 FiO2 40 09/11/22 16:00 Intake & Output 09/13/22 09/14/22 09/14/22 18:59 06:59 18:59 Intake Total 475 600 Output Total 400 1425 825 Balance 75 1425 -225 Weight 79.7 kg 79.7 kg Intake: IV 275 Oral 200 600 Output: Urine 400 1425 825 Other: Voiding Method Urinal Urinal Urinal # Voids 1 1 # Bowel Movements 1 ABP, PAP, CO, CI - Last Documented Arterial Blood Pressure 137/61 - Labs CBC & Chem 7: 09/14/22 07:24 09/14/22 07:24 Labs: Abnormal Lab Results - Last 24 Hours (Table) 09/13/22 09/13/22 09/14/22 Range/Units 17:15 19:56 06:12 RBC (4.30-5.90) m/uL Hgb (13.0-17.5) gm/dL Hct (39.0-53.0) % Sodium (137-145) mmol/L BUN (9-20) mg/dL Glucose (74-99) mg/dL POC Glucose (mg/dL) 163 H 156 H 224 H (70-110) mg/dL 09/14/22 09/14/22 09/14/22 Range/Units 07:24 07:24 11:34 RBC 3.72 L (4.30-5.90) m/uL Hgb 10.7 L (13.0-17.5) gm/dL Hct 33.1 L (39.0-53.0) % Sodium 135 L (137-145) mmol/L BUN 23 H (9-20) mg/dL Glucose 187 H (74-99) mg/dL POC Glucose (mg/dL) 167 H (70-110) mg/dL
--- NOTE | 2022-09-14 14:46 | P.DS ---
Providers Date of admission: 09/07/22 11:15 Expected date of discharge: 09/14/22 Attending physician: Elizabeth Urena DO Consults: 09/07/22 10:42 Consult Physician Routine Consulting Provider: Wolf Alicea Consult Reason/Comments: elevated troponin, cardiomyopathy Do you want consulting provider notified?: Already Contacted 09/07/22 11:14 Consult Physician Stat Consulting Provider: Linnea Tena Consult Reason/Comments: icu patient Do you want consulting provider notified?: Already Contacted 09/09/22 13:08 Consult Physician Routine Consulting Provider: [facility] Consult Reason/Comments: Post Interventional Patient Do you want consulting provider notified?: Already Contacted Primary care physician: Marzena Serrano MD Hospital Course: Discharge Diagnosis: Non-STEMI Left groin hematoma CAD status post stents Ischemic cardiomyopathy, LVEF less than 20% Cardiogenic pulmonary edema Diabetes mellitus, new diagnosis Hospital Course: Patient is a 67-year-old male with a history of coronary artery disease status post stenting many years ago, diabetes mellitus type 2 currently not on any medications, and osteoarthritis who presented to the ER via EMS for complaints of increasing shortness of breath. In ER, his pulse was 118, respirations 32, blood pressure 163/114, and O2 sat was 85% on CPAP. Laboratory analysis was remarkable for white blood cell count of 12.8, sodium 135, carbon dioxide 13, glucose 186, lactic acid 5.6, total bilirubin 1.6, AST 124, ALT 55, troponin 12.5, and BNP 2930. Chest x-ray showed findings suspicious for pulmonary fibrosis with superimposed left perihilar infiltrate and interstitial pneumonitis. Patient became critical in the emergency room and went into cardiogenic shock as well as non-ST elevation myocardial infarction. Patient was intubated and placed on the vent. Was started on propofol, Levophed, heparin drip and Lasix drip. Patient was taken to the [facility] and had Impella device inserted successfully on 09/08 which showed severe triple vessel disease. He underwent stenting to the LAD with plan for another staged intervention on 09/13. Patient developed a left groin hematoma after initial cardiac cath, taken back to the [facility] Turb[facility] Performance [facility] and Impella was removed. Extubated on 09/11. Now on Lasix 40 mg IV push twice a day. Downgraded out of the ICU. Had another cath on 09/13 with successful stenting of distal RCA and successful balloon angioplasty of mid and proximal RCA. Echocardiogram shows LVEF less than 20%. Patient also found to have a new diagnosis diabetes mellitus with A1c of 11.1. He is being discharged on dual antiplatelet therapy, statin, currently under active medical therapy for heart failure, and oral antidiabetic medications. He will need to follow-up with PCP and cardiology. Patient seen and examined at bedside. Vital signs reviewed and stable. General: nontoxic, no distress, appears at stated age Derm: warm, dry Head: atraumatic, normocephalic, symmetric Eyes: EOMI, no lid lag, anicteric sclera Mouth: no lip lesion, mucus membranes moist Cardiovascular: S1S2 reg, no murmur Lungs: CTA bilateral, no rhonchi, no rales , no accessory muscle use Abdominal: soft, nontender to palpation, no guarding, no appreciable organomegaly Ext: no gross muscle atrophy, no edema, no contractures Neuro: CN II-XI grossly intact, no focal neuro deficits Psych: Alert, oriented, appropriate affect A total of 36 minutes of time were spent preparing this complex discharge summary. Patient was discharged on 09/14/22 at 14:42. Patient Condition at Discharge: Stable Plan - Discharge Summary Discharge Rx Participant: No New Discharge Prescriptions: New Aspirin 81 mg PO DAILY #60 tab Atorvastatin [Lipitor] 40 mg PO DAILY #60 tab metFORMIN HCL [Glucophage] 500 mg PO BID #60 tab Empagliflozin [Jardiance] 25 mg PO DAILY #60 tablet Spironolactone [Aldactone] 25 mg PO DAILY #60 tab Ticagrelor [Brilinta] 90 mg PO BID #120 tab Furosemide [Lasix] 40 mg PO DAILY #60 tab Metoprolol Succinate [Toprol XL] 50 mg PO DAILY #60 tab Discharge Medication List Aspirin 81 mg PO DAILY #60 tab 09/14/22 [Rx] Atorvastatin [Lipitor] 40 mg PO DAILY #60 tab 09/14/22 [Rx] Empagliflozin [Jardiance] 25 mg PO DAILY #60 tablet 09/14/22 [Rx] Furosemide [Lasix] 40 mg PO DAILY #60 tab 09/14/22 [Rx] Metoprolol Succinate [Toprol XL] 50 mg PO DAILY #60 tab 09/14/22 [Rx] Spironolactone [Aldactone] 25 mg PO DAILY #60 tab 09/14/22 [Rx] Ticagrelor [Brilinta] 90 mg PO BID #120 tab 09/14/22 [Rx] metFORMIN HCL [Glucophage] 500 mg PO BID #60 tab 09/14/22 [Rx] Follow up Appointment(s)/Referral(s): Mahendra Terry MD [STAFF PHYSICIAN] - 1 Week None,Stated [REFERRING] - 1-2 days Patient Instructions/Handouts: Heart Failure (DC), Coronary Artery Disease (DC), Diabetes and Nutrition (DC), Type 2 Diabetes Management for Adults (DC) Discharge Disposition: HOME SELF-CARE
[2022-09-14] MEDS ORDERED: HEPARIN SODIUM,PORCINE/PF 5,000 UNIT/0.5 ML SYRINGE SQ SCH (16:00)
[2022-09-14 16:25] LABS: Glucose,Whole Blood 102 mg/dL (70-110)
[2022-09-14 17:39] VITALS: BP 121/73; PULSE 82; RESP 20
[2022-09-14] MEDS ORDERED: METOPROLOL TARTRATE 25 MG TAB PO SCH (21:00)
[2022-09-15] MEDS ORDERED: FUROSEMIDE 40 MG TAB PO SCH (09:00)
== END 2022-09-14 18:39 | disposition home or self-care (01) | DRG 215 ==
LOC: EC 09:14 → 2SICU 11:15 → 3SCARD 09-12 14:15
PROVIDERS: ADMIT Internal Medicine; ATTEND Internal Medicine
PROC: 0BH18EZ Insertion of Endotracheal Airway into Trachea, Via Natural or Artificial Opening Endoscopic (ICD-10-PCS; 2022-09-07)
PROC: 5A1945Z Respiratory Ventilation, 24-96 Consecutive Hours (ICD-10-PCS; 2022-09-07)
PROC: 3E033XZ Introduction of Vasopressor into Peripheral Vein, Percutaneous Approach (ICD-10-PCS; 2022-09-07)
PROC: 5A09357 Assistance with Respiratory Ventilation, Less than 24 Consecutive Hours, Continuous Positive Airway Pressure (ICD-10-PCS; 2022-09-07)
PROC: 02HV33Z Insertion of Infusion Device into Superior Vena Cava, Percutaneous Approach (ICD-10-PCS; 2022-09-07)
PROC: 0D9670Z Drainage of Stomach with Drainage Device, Via Natural or Artificial Opening (ICD-10-PCS; 2022-09-07)
PROC: 4A023N7 Measurement of Cardiac Sampling and Pressure, Left Heart, Percutaneous Approach (ICD-10-PCS; 2022-09-08)
PROC: B2111ZZ Fluoroscopy of Multiple Coronary Arteries using Low Osmolar Contrast (ICD-10-PCS; 2022-09-08)
PROC: 02HA3RZ Insertion of Short-term External Heart Assist System into Heart, Percutaneous Approach (ICD-10-PCS; principal; 2022-09-08 11:05)
PROC: 5A0221D Assistance with Cardiac Output using Impeller Pump, Continuous (ICD-10-PCS; 2022-09-08 11:05)
PROC: 02F03ZZ Fragmentation in Coronary Artery, One Artery, Percutaneous Approach (ICD-10-PCS; 2022-09-09)
PROC: 02PA3RZ Removal of Short-term External Heart Assist System from Heart, Percutaneous Approach (ICD-10-PCS; 2022-09-09)
PROC: B240ZZ3 Ultrasonography of Single Coronary Artery, Intravascular (ICD-10-PCS; 2022-09-09)
PROC: 027034Z Dilation of Coronary Artery, One Artery with Drug-eluting Intraluminal Device, Percutaneous Approach (ICD-10-PCS; 2022-09-09 11:00)
PROC: 027034Z Dilation of Coronary Artery, One Artery with Drug-eluting Intraluminal Device, Percutaneous Approach (ICD-10-PCS; 2022-09-13)
DX: I21.4 Non-ST elevation (NSTEMI) myocardial infarction (principal); I50.21 Acute systolic (congestive) heart failure; J18.9 Pneumonia, unspecified organism; R57.0 Cardiogenic shock; J96.01 Acute respiratory failure with hypoxia; J96.02 Acute respiratory failure with hypercapnia; N17.9 Acute kidney failure, unspecified; E87.20 Acidosis, unspecified; D62 Acute posthemorrhagic anemia; I16.1 Hypertensive emergency; J84.10 Pulmonary fibrosis, unspecified; I11.0 Hypertensive heart disease with heart failure; E11.65 Type 2 diabetes mellitus with hyperglycemia; I25.10 Atherosclerotic heart disease of native coronary artery without angina pectoris; I25.5 Ischemic cardiomyopathy; T38.3X6A Underdosing of insulin and oral hypoglycemic [antidiabetic] drugs, initial encounter; U09.9 Post COVID-19 condition, unspecified; M19.90 Unspecified osteoarthritis, unspecified site; E87.6 Hypokalemia; E78.5 Hyperlipidemia, unspecified; I34.0 Nonrheumatic mitral (valve) insufficiency; S30.1XXA Contusion of abdominal wall, initial encounter; I25.2 Old myocardial infarction; Z91.128 Patient's intentional underdosing of medication regimen for other reason; Z87.891 Personal history of nicotine dependence; Z95.5 Presence of coronary angioplasty implant and graft
CPT/HCPCS: 0715T; 33990; 36245; 36415; 36600; 70450; 71045; 75710; 76937; 80048; 80053; 80061; 82805; 83036; 83605; 83615; 83735; 83880; 84100; 84132; 84443; 84484; 85025; 85027; 85384; 85610; 85730; 86850; 86900; 86901; 86920; 87070; 87205; 92928; 92978; 93005; 93306; 93308; 93458; 94002; 94003; 94640; 94760; 96365; 96366; 96368; 96375; 96376; 99291